=== PATIENT | female | born 1995 | race Caucasian/White ===

== ENCOUNTER 2020-03-26 07:16 | Outpatient (CLI) | payer OTHER, SELFPAY ==
--- NOTE | ~2020-03-26 | MR_ITS ---
EXAMINATION: MR brain/brain stem wo/w con EXAM DATE: 03/26/2020 08:47 INDICATION: Persistent worsening morning headache. TECHNIQUE: Magnetic resonance imaging (MRI) of the brain/brain stem obtained without contrast. Sagit phuong T1, axial diffusion, gradient echo (T2*), T1, T2, FLAIR sequences obtained. Patient was then inj ected with 15 cc intravenous Multihance contrast. Axial and coronal postcontrast T1 weighted sequence s obtained. There is no prior study for comparison. FINDINGS: There are no areas of restricted diffusion to suggest acute infarction. There is no acute hemorrhage seen on the T2*, a hemosiderin sensitive sequence. No intraparenchymal brain mass. The ve ntricles are normal in size. There are no extra-axial collections. Flow voids are seen in the cereb ral arteries on the T2-weighted sequences consistent with their expected patency. The orbits are unr emarkable. Soft tissue is unremarkable. There are no areas of abnormal enhancement on the postcont rast images. IMPRESSION: 1. Normal brain MRI examination. Reviewed, dictated and finalized at location B. SPORT SPECIALIST
[2020-03-26 08:20] LABS: Estimated Glomerular Filt Rate > 60
== END 2020-03-26 07:17 | disposition home or self-care (01) ==
PROVIDERS: PCP Registered Nurse; Visit Provider Registered Nurse
DX: G44.52 New daily persistent headache (NDPH) (principal)
CPT/HCPCS: 70553; A9577

== ENCOUNTER 2022-08-04 14:51 | Emergency (ER) | payer OTHER, SELFPAY ==
[2022-08-04 14:59] VITALS: BP 118/74; PULSE 74; RESP 14; TEMP 36.8; O2SAT 100
--- NOTE | 2022-08-04 15:01 | ED.GENADULT ---
HPI - General Adult General Chief complaint: Back Pain/Injury Stated complaint: lt leg pain Source: patient and RN notes reviewed History of Present Illness HPI narrative: 27-year-old female presents to urgent care with complaints of left buttock pain that radiates down her posterior thigh. Patient reports some numbness and tingling. Patient denies any injury or trauma. Patient denies any incontinence of urine or stool, saddle anesthesia, weakness, fevers, or chills. Patient states she took 2 Tylenol Extra Strength without relief. Some parts of this dictation were generated by voice recognition software and may contain typographical and/or grammatical inaccuracies. Related Data Home Medications Medication Instructions Recorded Confirmed bupropion HCl 150 mg tablet,12 hr 150 mg PO DAILY 02/19/22 08/04/22 sustained-release (Wellbutrin SR) citalopram 20 mg tablet 20 mg PO DAILY 03/27/22 08/04/22 levonorgestrel 21 mcg/24 hours (8 1 device intrauterine ONCE 03/27/22 08/04/22 yrs) 52 mg intrauterine device (Mirena) spironolactone 50 mg tablet 50 mg PO DAILY 08/04/22 08/04/22 Allergies Allergy/AdvReac Type Severity Reaction Status Date / Time No Known Allergies Allergy Verified 08/04/22 15:04 Review of Systems Review of Systems: CONSTITUTIONAL: Denies fever, chills, or sweats. EYES: Denies visual changes, redness, or discharge. ENT: Denies otalgia and sore throat CARDIOVASCULAR: Denies chest pain, palpitations, or edema. RESPIRATORY: Denies cough or dyspnea. GASTROINTESTINAL: Denies abdominal pain, nausea, vomiting, or diarrhea. GENITOURINARY: Denies dysuria or hematuria. SKIN: Denies rash or itching. MUSCULOSKELETAL: left buttock pain NEUROLOGIC: Denies headache, numbness, or weakness. [facility] Past Medical History Medical History (Updated 08/04/22 @ 15:13 by Tamy Medina APRN) Encounter for insertion of mirena IUD insertion 10/2018 Encounter for Nexplanon removal Nexplanon insertion Surgical History Surgical History H/O wisdom tooth extraction Family History Family History Other Breast cancer Diabetes mellitus Social History Social History Smoking status: Never smoker Alcohol intake: current Substance use: current Substance use type: marijuana Living arrangements: with family Occupation/Education: occupation Gender identity (if verbalized by the patient): Female Sexual Orientation (if Verbalized by the Patient): Straight or Heterosexual Comments At the time of my signature, I reviewed and agree with the nursing past medical, surgical, social, and family history. There is no relevant family history pertinent to the patient complaint. Exam Narrative: GENERAL: This is a well-nourished, well-developed patient, in no apparent distress. HEAD: normocephalic, atraumatic. EYES: PERRL. Sclera clear/white. Vision is grossly intact. EARS: External ears normal, auditory canals clear and without drainage, TMs normal without perforation. Hearing grossly intact. NOSE: External nose normal with no obvious nasal discharge, nares without redness, no rhinorrhea. THROAT: Mucous membranes moist, posterior pharynx clear. NECK: Neck supple, non-tender without lymphadenopathy, masses or thyromegaly. CARDIOVASCULAR: Regular rate and rhythm without murmurs, gallops, or rubs. RESPIRATORY: Clear to auscultation. Breath sounds equal bilaterally. No wheezes, rales, or rhonchi. GASTROINTESTINAL: Abdomen soft, non-tender, nondistended. Bowel sounds are active. No hepato-splenomegaly, or palpable masses. No guarding. SKIN: warm, intact with no suspicious lesions or rash, good texture and turgor. NEURO: awake, alert, and oriented to person, place and time. There were no obvious focal neurologic abnormalities. EXTREMITIES: No clubbing, cyanosis, or
== END 2022-08-04 15:19 | disposition home or self-care (01) ==
PROVIDERS: Emergency Provider Nurse Practitioner Family; PCP Registered Nurse
DX: M54.32 Sciatica, left side (principal); F12.90 Cannabis use, unspecified, uncomplicated
CPT/HCPCS: 99213; G0463

== ENCOUNTER → 2023-05-04 08:16 | Outpatient (CLI) | payer OTHER, SELFPAY ==
--- NOTE | ~2023-05-04 | US_ITS ---
US breast LT complete INDICATION: Left breast lump TECHNIQUE: Dedicated left breast ultrasound COMPARISON: No prior studies for comparison. FINDINGS: The left breast is composed of normal heterogeneous echotexture without focal solid or cyst ic mass. IMPRESSION: 1: Normal left breast ultrasound. BI-RADS CATEGORY 1 - NEGATIVE Reviewed, dictated and finalized at location A. RED MACHINE OPERATOR
== END ==
PROVIDERS: PCP Student in an Organized Health Care Education/Training Program; Visit Provider Student in an Organized Health Care Education/Training Program
DX: N63.20 Unspecified lump in the left breast, unspecified quadrant (principal)
CPT/HCPCS: 76641

== ENCOUNTER 2023-09-18 13:57 | Emergency (ER) | payer OTHER, SELFPAY ==
--- NOTE | 2023-09-18 14:48 | PC.NURSE ---
Pt checked in and then immediately left [facility]. Pt was not seen by any staff besides initial registration.
== END 2023-09-18 14:50 | disposition left against medical advice (07) ==
PROVIDERS: PCP Registered Nurse
DX: Z53.21 Procedure and treatment not carried out due to patient leaving prior to being seen by health care provider (principal)
CPT/HCPCS: 99199

== ENCOUNTER 2024-01-07 21:36 | Emergency (ER) | payer OTHER, SELFPAY ==
--- NOTE | ~2024-01-07 | XR_ITS ---
EXAMINATION: XR chest 2V DATE: 01/08/2024 00:58 INDICATION: Leukocytosis. Nausea and vomiting. TECHNIQUE: Frontal and lateral views of the chest were obtained. COMPARISON: CT abdomen pelvis 01/08/24 FINDINGS: There are moderate-sized right and small left pleural effusions. There is mild atelectasis at right lung base. No pneumothorax. The heart size is normal. There is a right subclavian port with tip at superior cavoatrial junction. IMPRESSION: 1. Moderate-sized right and small left pleural effusions. Reviewed, dictated and finalized at location A.
--- NOTE | ~2024-01-07 | XR_ITS ---
XR abdomen/kub 1V DATE: 01/09/2024 14:43 INDICATION: Abdominal pain, constipation TECHNIQUE: 2 portable supine AP views COMPARISON: 01/08/2024 CT abdomen pelvis FINDINGS: There is a groundglass appearance of the abdomen likely due to combination of ascites and f luid distended bowel. No bowel obstruction is evident. No visceromegaly or significant abnormal calcification is noted. IMPRESSION: No evidence of bowel obstruction or unusual amount of fecal material in the colon Ascites Reviewed, dictated and finalized at Location A. Reviewed, dictated and finalized at location J. IMPRESSION: No evidence of bowel obstruction or unusual amount of fecal materia l in the colon Ascites
--- NOTE | ~2024-01-07 | CT_ITS ---
EXAMINATION: CT abdomen pelvis w con DATE: 01/08/2024 00:56 INDICATION: Low abdominal pain. TECHNIQUE: Computed tomography (CT) of the abdomen and pelvis was performed with 100 mL Omnipaque 350 intravenous contrast. Automated exposure control and iterative reconstruction technique were employe d. The dose-length product was 461.38 mGy-cm. COMPARISON: None. FINDINGS: The visualized portions of lung bases demonstrate moderate-sized right and small left pleur al effusions. There is mild atelectasis bilaterally. The heart size is normal. There is a small peric ardial effusion. The liver, gallbladder, spleen, pancreas, adrenal glands, and kidneys are normal. Th ere are no dilated loops of bowel. The appendix is normal. There is a moderate volume of ascites. The ovaries are markedly enlarged with innumerable cysts. The right ovary measures 9.0 cm. Left ovary me asures 10.9 cm. There are chronic bilateral L5 pars defects. There is 3 mm anterolisthesis of L5 on S 1. IMPRESSION: 1. Markedly enlarged ovaries within innumerable cysts, which may be ovarian hyperstimulation syndrome . Metastatic disease is not excluded. 2. Moderate-sized right and small left pleural effusions. 3. Small pericardial effusion. 4. Moderate volume of ascites. Reviewed, dictated and finalized at location A. IMPRESSION: 1. Markedly enlarged ovaries within innumerable cysts, which may be ovarian hyp erstimulation syndrome. Metastatic disease is not excluded. 2. Moderate-sized right and small left pleural effusions. 3. Small pericardial effusion. 4. Moderate volume of ascites.
[2024-01-07 21:56] VITALS: BP 105/76; PULSE 94; RESP 23; O2SAT 100
[2024-01-07 22:01] VITALS: BP 102/76; PULSE 90; PULSE 96; RESP 13; RESP 15; TEMP 36.1; O2SAT 99
--- NOTE | 2024-01-07 22:24 | ECG_ITS ---
Test Date: 2024-01-07 22:44:42 Measurements Intervals [place] Rate: 89 P: 54 IA: 129 QRS: 44 QRSD: 82 T: 28 QT: 356 QTc: 433 Interpretive Statements SINUS RHYTHM NORMAL ELECTROCARDIOGRAM No previous ECG available for comparison Electronically Signed On 01-08-2024 14:58:05 CDT by Randy Pizano M.D.
[2024-01-07 22:28] VITALS: PULSE 91
[2024-01-07] MEDS: SODIUM CHLORIDE 0.9% IV 1,000 ML 999 ML IV CONT ×2 (22:37→23:23)
[2024-01-07] MEDS: ONDANSETRON INJ 4 MG/2 ML VIAL IV PUSH (22:37)
[2024-01-07 22:38] LABS: Basophils Absolute Auto 0.1 K/mm3 (0.0-0.1); Basophils Percent Auto 0.4 % (0.2-1.2); Hematocrit 47.8 % (37.0-47.0); Hemoglobin 17.1 g/dL (12.0-15.0); Immature Granulocyte Absolute 0.15 K/mm3 (0.00-0.031); Immature Granulocyte Percent A 0.7 % (0-0.5); Lymphocytes Absolute Auto 1.46 K/mm3 (0.9-3.2); Lymphocytes Percent Auto 6.5 % (18.3-44.2); Mean Corpuscular HGB Conc 35.8 g/dl (32-36); Mean Corpuscular Hemoglobin 30.6 pg (26-34); Mean Corpuscular Volume 85.5 fl (80-100); Mean Platelet Volume 9.5 fl (7.4-10.4); Monocytes Absolute Auto 0.8 K/mm3 (0.1-0.6); Monocytes Percent Auto 3.6 % (2.6-8.5); Neutrophils Absolute Auto 19.8 K/mm3 (1.3-6.7); Neutrophils Percent Auto 88.8 % (45.5-73.1); Platelet Count Result 292 k/mm3 (150-375); Red Blood Count 5.59 M/mm3 (4.2-5.4); Red Cell Distribution Width 12.2 % (11.5-14.5); White Blood Count 22.3 K/mm3 (4.5-10.0)
[2024-01-07 22:50] LABS: Lactic Acid Reflex 1.1 mmol/L (0.7-2.0)
[2024-01-07 22:51] LABS: Alanine Aminotransferase 26 U/L (6-35); Albumin Level 3.6 g/dL (3.5-5.1); Alkaline Phosphatase 65 U/L (38-126); Anion Gap 9 mmol/L (4-12); Aspartate Amino Transferase 23 U/L (14-36); Bilirubin,Total 0.3 mg/dL (0.2-1.3); Blood Urea Nitrogen 9 mg/dL (7-17); Calcium 8.8 mg/dL (8.4-10.2); Carbon Dioxide 21 mmol/L (22-30); Chloride 102 mmol/L (98-107); Estimated CRCL calculation 104 ml/min; Estimated Glomerular Filt Rate > 60; Glucose 131 mg/dL (65-110); Potassium 4.2 mmol/L (3.4-5.0); Sodium 132 mmol/L (137-145)
[2024-01-07 22:54] LABS: Prothrombin Time 13.2 Seconds (11.1-14.7)
[2024-01-07 22:55] LABS: Partial Thromboplastin Time 27.3 Seconds (22.3-36.8)
[2024-01-07 23:07] VITALS: BP 104/70; PULSE 79; RESP 19; TEMP 37.1; O2SAT 99
[2024-01-07] MEDS: METOCLOPRAMIDE HCL INJ 10 MG/2 ML VIAL IV PUSH (23:23)
[2024-01-07] MEDS: diphenhydrAMINE HCl INJ 50 MG/ML VIAL 25 MG IV PUSH (23:23)
[2024-01-07 23:31] LABS: Procalcitonin 0.1 ng/mL
[2024-01-07] MEDS: MORPHINE SULFATE (*CRX) 2 MG/ML INJ IV PUSH (23:58)
[2024-01-08] VITALS (72 sets, daily range): BP systolic 91–111; BP diastolic 59–73; PULSE 80–113; RESP 15–27; TEMP 36.3–37.2; O2SAT 95–99
[2024-01-08 00:01] LABS: Influenza A QL RT-PCR Negative (Negative); Influenza B QL RT-PCR Negative (Negative); RSV RNA, RT-PCR Negative (Negative); SARS-CoV-2 RNA PCR Negative (Negative)
--- NOTE | 2024-01-08 00:25 | ED.WEAKNESS ---
HPI - Weakness General Chief complaint: Weakness <Mari Lokc APRN - Last Filed: 01/11/24 11:43> Stated complaint: weakness, n/v <Mari Lock APRN - Last Filed: 01/11/24 11:43> Time Seen by Provider: 01/07/24 21:42 <Mari Lock APRN - Last Filed: 01/11/24 11:43> Source: patient <Mari Lock APRN - Last Filed: 01/11/24 11:43> Mode of arrival: ambulatory <Mari Lock APRN - Last Filed: 01/11/24 11:43> Limitations: no limitations <Mari Lock APRN - Last Filed: 01/11/24 11:43> History of Present Illness HPI Narrative: Pt is a 28-year-old female who presents to the ER with complaints of weakness, nausea and vomiting. She reports she was diagnosed with breast cancer about a month ago. Pt reports she has had a port placed and gone through fertility stuff since then. This morning she received a shot to protect my kidneys and anticipates starting her chemotherapy next week. Pt reports she was feeling fine until about 1800 this evening. She endorses lower abdominal pain, along with nausea and generalized weakness at this time. Pt's parents are both present during this visit. <Mari Lock APRN - Last Filed: 01/11/24 11:43> Related Data Home medications: Home Medications Medication Instructions Recorded Confirmed dexamethasone 4 mg tablet 4 mg PO DAILY 01/08/24 01/08/24 letrozole 2.5 mg tablet 2.5 mg PO DAILY 01/08/24 01/08/24 ondansetron HCl 8 mg tablet 8 mg PO PRN PRN Nausea 01/08/24 01/08/24 prochlorperazine maleate 10 mg 10 mg PO DAILY 01/08/24 01/08/24 tablet <Mari Lock APRN - Last Filed: 01/11/24 11:43> Allergies/Adverse reactions: Allergies Allergy/AdvReac Type Severity Reaction Status Date / Time No Known Allergies Allergy Verified 01/08/24 01:07 <Mari Lock APRN - Last Filed: 01/11/24 11:43> Review of Systems Review of Systems: All systems reviewed & are unremarkable except as noted in HPI and below <Mari Lock APRN - Last Filed: 01/11/24 11:43> [facility] Past Medical History Medical History: Medical History Encounter for insertion of mirena IUD insertion 10/2018 Encounter for Nexplanon removal Encounter for removal of intrauterine contraceptive device Nexplanon insertion <Mari Lock APRN - Last Filed: 01/11/24 11:43> Surgical History Surgical History: Surgical History H/O wisdom tooth extraction <Mari Lock APRN - Last Filed: 01/11/24 11:43> Family History Family History: Family History Other Breast cancer Diabetes mellitus <Mari Lock APRN - Last Filed: 01/11/24 11:43> Social History Social History: Social History Smoking status: Never smoker Alcohol intake: current Substance use: current Substance use type: marijuana Lack of Transportation: No Lack of Food: Never True Current Housing: I Have Housing Concerned About Future Housing: No Difficulty Paying Gas/Electric Bills: No Difficulty Paying for Meds: No Currently Unemployed: No Education: Bachelor's Degree Difficulty w/ Childcare or Family Care: No Living arrangements: with family Occupation/Education: occupation Gender identity (if verbalized by the patient): Female Sexual Orientation (if Verbalized by the Patient): Straight or Heterosexual <Mari Lock APRN - Last Filed: 01/11/24 11:43> Exam Narrative: GENERAL: ill-appearing, but well-nourished HEENT: Head normocephalic, atraumatic. Eyes pupils equal round and reactive to light, extraocular movements intact. Nares patent. Oropharynx clear. NECK: Supple, normal range of motion, no JVD. CARDIAC: Regular rate and rhythm without murmurs, rubs or gal
[2024-01-08 01:19] LABS: Add Urine Microscopic? YES; Appearance Urine Cloudy (Clear); Bacteria Urine 3+ /hpf; Bilirubin Urine Negative (Negative); Blood Urine Negative (Negative); Color Urine Yellow (Yellow); Glucose Urine UA Negative (Negative); Ketones Urine 3+ mg/dL (Negative); Leukocyte Esterase Ur 1+ LEU/UL (Negative); Need Manual Microscopic Reviewed; Nitrate Urine Negative (Negative); Protein Urine Trace mg/dL (Negative); Specific Grav Ur 1.023 (1.001-1.035); Squamous Epithelial Cell Urine Many /hpf (Few); Urobilinogen Urine 0.2 mg/dL (<2.0); pH Urine 5.5 (5.0-9.0)
[2024-01-08 01:24] LABS: BEDSIDEPREGUCG Negative
[2024-01-08] MEDS: CEFEPIME 2 GM/NS 50 ML 2 GM/50 ML BAG IVPB ×3 (01:37→18:10)
[2024-01-08] MEDS: VANCOMYCIN 1,250 MG/NS 250 ML 1,250 MG/250 ML BAG 166.67 MG IVPB (02:15)
[2024-01-08] MEDS: ONDANSETRON INJ 4 MG/2 ML VIAL IV PUSH ×2 (02:23→23:46)
[2024-01-08] MEDS: VANCOMYCIN 1,000 MG/NS 250 ML 1,000 MG/250 ML BAG 250 MG IVPB (03:50)
[2024-01-08 04:14] LABS: MRSA (PCR) NOT DETECTED (NOT DETECTE)
[2024-01-08] MEDS: METOCLOPRAMIDE HCL INJ 10 MG/2 ML VIAL IV PUSH (06:18)
[2024-01-08] MEDS: HEPARIN SODIUM 5,000 UNITS/ML VIAL 5000 UNITS SUB-Q (06:18)
--- NOTE | 2024-01-08 07:26 | PC.NURSE ---
Assumed care of pt. Pt resting in bed, A&Ox4, in good spirits. Pt's mother and father at bedside with her. Pt reports she is currently feeling well, denies pain or nausea at this time and is asking if she is able to eat. Pt provided pretzels and juice upon request. Call light within reach. Pt and her parents were updated and informed on transfer process.
[2024-01-08] MEDS: VANCOMYCIN 1,500 MG/NS 500 ML 1,500 MG/500 ML BAG 250 MG IVPB (14:22)
[2024-01-08] MEDS: MORPHINE SULFATE (*CRX) 2 MG/ML INJ IV PUSH (15:01)
--- NOTE | 2024-01-08 15:08 | PC.NURSE ---
Pt was complaining of returning pain to RLQ. RN informed MD Rhodes, pt provided pain medication, denies need for ondansetron at this time. Diet order placed, pt wanting to order dinner. Pt's mother and father remain at bedside. Continuing to await transfer.
--- NOTE | 2024-01-08 15:43 | PC.NURSE ---
pt remains on bed wait list for [facility]
--- NOTE | 2024-01-08 23:27 | PC.NURSE ---
spoke with [facility] transfer center for update- no bed available at this time.
--- NOTE | 2024-01-08 23:32 | ECG_ITS ---
Test Date: 2024-01-08 23:34:30 Measurements Intervals [place] Rate: 87 P: 40 AK: 120 QRS: 46 QRSD: 91 T: 32 QT: 358 QTc: 433 Interpretive Statements SINUS RHYTHM NORMAL ECG Compared to ECG 01/07/2024 22:44:42 No significant changes Electronically Signed On 01-09-2024 09:35:08 CDT by Randy Pizano M.D.
[2024-01-09] VITALS (46 sets, daily range): BP systolic 91–116; BP diastolic 50–78; PULSE 68–103; RESP 14–27; TEMP 36.5–36.7; O2SAT 93–100
[2024-01-09] MEDS: CEFEPIME 2 GM/NS 50 ML 2 GM/50 ML BAG IVPB ×3 (02:22→18:47)
[2024-01-09] MEDS: polyethylene glycoL 3350 17 GM POWD.PACK PO (02:23)
[2024-01-09] MEDS: VANCOMYCIN 1,500 MG/NS 500 ML 1,500 MG/500 ML BAG 250 MG IVPB ×3 (02:28→21:24)
[2024-01-09 06:30] LABS: Estimated CRCL calculation 118 ml/min; Estimated Glomerular Filt Rate > 60
[2024-01-09] MEDS: MORPHINE SULFATE (*CRX) 2 MG/ML INJ IV PUSH ×4 (10:08→21:23)
[2024-01-09] MEDS: ONDANSETRON INJ 4 MG/2 ML VIAL IV PUSH ×4 (10:08→21:23)
[2024-01-09 11:18] LABS: Basophils Absolute Auto 0.1 K/mm3 (0.0-0.1); Basophils Percent Auto 0.4 % (0.2-1.2); Eosinophils Percent Auto 0.3 % (0-4.4); Hematocrit 38.6 % (37.0-47.0); Hemoglobin 13.3 g/dL (12.0-15.0); Immature Granulocyte Absolute 0.06 K/mm3 (0.00-0.031); Immature Granulocyte Percent A 0.4 % (0-0.5); Lymphocytes Absolute Auto 1.95 K/mm3 (0.9-3.2); Lymphocytes Percent Auto 13.9 % (18.3-44.2); Mean Corpuscular HGB Conc 34.5 g/dl (32-36); Mean Corpuscular Hemoglobin 30.3 pg (26-34); Mean Corpuscular Volume 87.9 fl (80-100); Mean Platelet Volume 9.5 fl (7.4-10.4); Monocytes Absolute Auto 0.8 K/mm3 (0.1-0.6); Monocytes Percent Auto 5.9 % (2.6-8.5); Neutrophils Absolute Auto 11.1 K/mm3 (1.3-6.7); Neutrophils Percent Auto 79.1 % (45.5-73.1); Platelet Count Result 195 k/mm3 (150-375); Red Blood Count 4.39 M/mm3 (4.2-5.4); Red Cell Distribution Width 12.6 % (11.5-14.5)
[2024-01-09 11:34] LABS: Alanine Aminotransferase 24 U/L (6-35); Albumin Level 2.7 g/dL (3.5-5.1); Alkaline Phosphatase 48 U/L (38-126); Anion Gap 7 mmol/L (4-12); Aspartate Amino Transferase 23 U/L (14-36); Bilirubin,Total 0.3 mg/dL (0.2-1.3); Blood Urea Nitrogen 8 mg/dL (7-17); Calcium 7.6 mg/dL (8.4-10.2); Carbon Dioxide 19 mmol/L (22-30); Chloride 106 mmol/L (98-107); Estimated CRCL calculation 118 ml/min; Estimated Glomerular Filt Rate > 60; Glucose 90 mg/dL (65-110); Potassium 3.8 mmol/L (3.4-5.0); Sodium 132 mmol/L (137-145)
--- NOTE | 2024-01-09 12:48 | PC.NURSE ---
lunch tray ordered for pt at this time
--- NOTE | 2024-01-09 20:00 | PC.NURSE ---
assumed care of pt from Princess Lepe RN.
[2024-01-10] MEDS: CEFEPIME 2 GM/NS 50 ML 2 GM/50 ML BAG IVPB ×3 (02:03→19:08)
[2024-01-10] MEDS: MORPHINE SULFATE (*CRX) 2 MG/ML INJ IV PUSH ×5 (02:03→22:46)
[2024-01-10] MEDS: ONDANSETRON INJ 4 MG/2 ML VIAL IV PUSH ×4 (02:03→22:17)
[2024-01-10] MEDS: VANCOMYCIN 1,500 MG/NS 500 ML 1,500 MG/500 ML BAG 250 MG IVPB (06:00)
--- NOTE | 2024-01-10 06:05 | PC.NURSE ---
morphine and zofran pulled for 0600 dose and wasted with this rn and juan carlos ferreira charge nurse.
[2024-01-10 07:00] VITALS: BP 95/63; PULSE 92; RESP 16; TEMP 36.7; O2SAT 98
[2024-01-10] MEDS: polyethylene glycoL 3350 17 GM POWD.PACK PO (08:25)
[2024-01-10 10:14] LABS: Estimated CRCL calculation 136 ml/min; Estimated Glomerular Filt Rate > 60
--- NOTE | 2024-01-10 10:15 | PC.NURSE ---
mEma from [facility] transfer center called for pt update. No change in bed availability at this time
--- NOTE | 2024-01-10 11:52 | PC.NURSE ---
Pt ambulated to BR c/o nausea upon ambulating. Assisted back to bed, Zofran not due at this time. Pt states I will just take a nap
[2024-01-10 13:21] LABS: Vancomycin Trough 13.4 ug/mL (10.0-20.0)
[2024-01-10 13:41] VITALS: BP 106/66; PULSE 66; RESP 16; TEMP 36.8; O2SAT 98
[2024-01-10] MEDS: VANCOMYCIN 1,750 MG/NS 500 ML 1,750 MG/500 ML BAG 250 MG IVPB ×2 (14:01→21:58)
--- NOTE | 2024-01-10 14:45 | PC.NURSE ---
Pt states relief from nausea. Ate 100% of lunch tray
--- NOTE | 2024-01-10 16:14 | PC.NURSE ---
Pt ambulated to bathroom with steady gait, denies nausea, linens changed.
--- NOTE | 2024-01-10 18:21 | PC.NURSE ---
Pt offered shower. Port a cath & IV covered with Magdy Gomezap & pt accompanied by Priscila blast furnace helper
[2024-01-10 19:20] VITALS: BP 117/72; PULSE 92; RESP 16; TEMP 36.7; O2SAT 97
[2024-01-10 21:20] VITALS: BP 95/52; PULSE 83; RESP 16; TEMP 36.7; O2SAT 100
[2024-01-10 23:13] VITALS: BP 104/70; PULSE 67; RESP 18; TEMP 36.4; O2SAT 99
[2024-01-11] VITALS (8 sets, daily range): BP systolic 98–114; BP diastolic 60–75; PULSE 61–98; RESP 15–18; TEMP 36.3–36.9; O2SAT 97–100
[2024-01-11] MEDS: CEFEPIME 2 GM/NS 50 ML 2 GM/50 ML BAG IVPB (02:04)
[2024-01-11] MEDS: ONDANSETRON INJ 4 MG/2 ML VIAL IV PUSH ×5 (05:25→21:43)
[2024-01-11] MEDS: MORPHINE SULFATE (*CRX) 2 MG/ML INJ IV PUSH ×5 (05:25→21:43)
[2024-01-11] MEDS: CENTRAL LINE FLUSH 10 ML IV PUSH ×2 (05:25→21:44)
[2024-01-11 05:32] LABS: Estimated CRCL calculation 136 ml/min; Estimated Glomerular Filt Rate > 60
[2024-01-11] MEDS: VANCOMYCIN 1,750 MG/NS 500 ML 1,750 MG/500 ML BAG 250 MG IVPB (06:01)
--- NOTE | 2024-01-11 08:00 | PC.NURSE ---
Assumed care of pt, pt happy this morning, ordered breakfast. no complaints, no other requests at this time.
[2024-01-11] MEDS: HEPARIN SODIUM 5,000 UNITS/ML VIAL 5000 UNITS SUB-Q (08:39)
[2024-01-11] MEDS: polyethylene glycoL 3350 17 GM POWD.PACK PO (08:40)
--- NOTE | 2024-01-11 08:57 | PC.NURSE ---
spoke with omid at [facility]. updated her on pt status. states they are still waiting on a bed
--- NOTE | 2024-01-11 12:14 | PC.NURSE ---
lunch tray ordered
--- NOTE | 2024-01-11 16:00 | PC.NURSE ---
Different options being discussed between pt, RN and Exploring possible dc from ED and outpatient followup with siteman as pt is feeling much better and labs have improved. Pt making phone calls to [facility] to speak with her
--- NOTE | 2024-01-11 17:00 | PC.NURSE ---
This RN to room to check on pt. Pt crying in bed and states she is just very frustrated. She states she spoke with nurse coordinator and they are still wanting her to be transferred to [place] so that she can be evaluated by DIAL MAKER and fertility
--- NOTE | 2024-01-11 19:15 | PC.NURSE ---
Assumed care of pt from [place] [facility] at this time. Pt resting comfortably in bed. Call light within reach.
--- NOTE | 2024-01-12 03:26 | PC.NURSE ---
At 2143 med pass pt verbalized not wanting RN to wake her throughout the night unless she called out. Pt wanted to see how long she could go without getting pain meds and to see if she could transition from morphine to a medication of lesser strength. This RN verbalized understanding and told pt to press her call light at any time throughout the night if she had any needs.
[2024-01-12 05:40] VITALS: BP 108/64; PULSE 73; RESP 16; TEMP 36.7; O2SAT 99
[2024-01-12 05:41] VITALS: O2SAT 97
[2024-01-12] MEDS: CENTRAL LINE FLUSH 10 ML IV PUSH (06:03)
--- NOTE | 2024-01-12 07:26 | PC.NURSE ---
breakfast tray ordered
[2024-01-12] MEDS: polyethylene glycoL 3350 17 GM POWD.PACK PO (09:04)
--- NOTE | 2024-01-12 09:21 | PC.NURSE ---
Spoke with Elsa from [facility]. She will contact admitting doctor to see what other interventions need done or if pt can possibly be discharged home.
[2024-01-12 11:58] VITALS: BP 105/64; PULSE 94; RESP 18; TEMP 36.7; O2SAT 94
--- NOTE | 2024-01-12 11:59 | PC.NURSE ---
Assumed care of pt. Pt resting comfortably in bed, rates her pain as 2/10 - requesting to switch from morphine to tylenol for pain control and awaiting update from to see if pt can be d/c from facility. Lunch tray ordered for pt at this time. Pt denies other complaints/requests. Family at bedside.
[2024-01-12] MEDS: ACETAMINOPHEN 500 MG TABLET 1000 MG PO (12:59)
[2024-01-12 14:31] VITALS: BP 136/84; PULSE 80; RESP 16; O2SAT 98
== END 2024-01-12 14:46 | disposition home or self-care (01) ==
PROVIDERS: Emergency Medicine; Registered Nurse; Emergency Provider Student in an Organized Health Care Education/Training Program; PCP Registered Nurse
DX: A41.9 Sepsis, unspecified organism (principal); C50.919 Malignant neoplasm of unspecified site of unspecified female breast; N98.1 Hyperstimulation of ovaries; E86.0 Dehydration; J90 Pleural effusion, not elsewhere classified; D72.829 Elevated white blood cell count, unspecified; D58.2 Other hemoglobinopathies; R18.8 Other ascites; Z20.822 Contact with and (suspected) exposure to COVID-19
CPT/HCPCS: 36415; 71046; 74018; 74177; 80053; 80202; 81001; 81025; 82565; 83605; 84145; 85025; 85610; 85730; 86850; 86900; 86901; 87040; 87086; 87088; 87637; 87641; 93005; 96361; 96365; 96366; 96367; 96372; 96374; 96375; 96376; 99284; A9270; J0692; J1200; J1642; J1644; J2270; J2405; J2765; J3370; J7030; Q9967

== ENCOUNTER 2024-09-16 22:05 | Emergency (ER) | payer OTHER, SELFPAY ==
--- NOTE | ~2024-09-16 | CT_ITS ---
CTA chest abdomen pelvis Ordering provider: Everton Greenberg MD History: . pod 3 breast bean dumper sx, tachycardia, dizzy, diar . Comparison: None. Technique: CT angiogram chest, abdomen and pelvis was performed following timed intravenous injection of contrast. Thin slice axial images and reformatted coronal images were obtained. Three dimensional reformatted images of the chest were also obtained using a Vit[employer] workstation. Radiation reduction t echnique utilized.The dose-length product was 1052.28 mGy-cm. 100 mL Omnipaque 350 was given IV. FINDINGS: CHEST: Bilateral breast implants with minimal fluid around both implants. Air is also seen in the subcutaneo us tissues on the left side breast. --THORACIC AORTA: normal. No aneurysm, dissection or mediastinal hematoma. --GREAT VESSELS: Normal as visualized. --PULMONARY ARTERIES: No pulmonary embolus. --VISUALIZED THORACIC INLET: Normal. --MEDIASTINUM: Coronary arteries: Normal.. Heart/other: The heart is not enlarged. Lymph nodes: No mediastinal or hilar adenopathy. --LUNGS: No pulmonary nodules or masses. No infiltrates or effusions. No pneumothorax. --MUSCULOSKELETAL: Superficial soft tissues: The superficial soft tissues are normal. Bones: Normal spine. ABDOMEN/PELVIS: --MUSCULOSKELETAL: Bones: Spondylolysis at the level of L5-S1. Otherwise, normal. Superficial soft tissues: The superficial soft tissues are normal. --UPPER ABDOMINAL ORGANS: Liver: Normal. Gallbladder: Normal. Spleen: Normal. Stomach/duodenum: Normal. Hyperdense material seen in the stomach. Pancreas: Normal. Adrenals: Normal. Kidneys: Normal. --PELVIC ORGANS: The bladder is normal. No bladder stones. --BOWEL AND MESENTERY: Colon: No evidence of diverticulitis.. Hyperdense material seen in the large and all bowel in additio n to the stomach may be medication. Evaluate clinically. The appendix is not demonstrated. Small Bowel: Normal. No obstruction. Peritoneum/mesentery: No free air or free fluid. No mesenteric lymphadenopathy. Small mesenteric lymp h nodes. --RETROPERITONEUM: No retroperitoneal lymphadenopathy. --ARTERIES: ABDOMINAL AORTA: Normal. No aneurysm or dissection. RENAL ARTERIES: Normal. CELIAC AXIS: Normal. SMA: Normal. AYSE: Normal. ILIAC AND VISUALIZED FEMORAL ARTERIES: Normal. MESENTERIC ARTERIES: Normal. IMPRESSION: CHEST: 1. Fluid seen around the breast implants bilaterally more on the left side with air seen in the subc utaneous tissues on the left side. 2. No evidence of aneurysm or dissection. No vascular injury noted. 3. No acute cardiopulmonary pathology ABDOMEN/PELVIS: 1. No acute abdominal process. 2. No aneurysm or dissection seen. No vascular injury noted. Reviewed, dictated and finalized at location A. IMPRESSION: CHEST: 1. Fluid seen around the breast implants bilaterally more on the left side wit h air seen in the subcutaneous tissues on the left side. 2. No evidence of aneurysm or dissection. No vascular injury noted. 3. No acute cardiopulmonary pathology ABDOMEN/PELVIS: 1. No acute abdominal process. 2. No aneurysm or dissection seen. No vascular injury noted.
[2024-09-16 22:08] VITALS: BP 98/70; PULSE 112; RESP 15; TEMP 37.1; O2SAT 100
--- OUTSIDE RECORDS SUMMARY | 2024-09-16 22:08 | XMS_ITS | Encounter Summary ---
Author Organization [facility] Address [address] [place] [address] Phone Care Team Providers Care Coach Professional Athletes Name Role Phone Torri Wiseman NP Primary Care Provider [phone] Alexa Ervin MD Unavailable [phone] Encounter Details Date Type Department Care Team (Latest Contact Info) Description 12/07/2023 Orders Only [facility] Scanning, Provider Social History Tobacco Use Types Packs/Day Years Used Date Smoking Tobacco: Never PHQ-2 Answer Date Recorded PHQ-2 Total Score (If total score is 3 or more points, staff should administer the PHQ-9) 0 11/25/2023 Personal Safety Answer Date Recorded Getting School Help Needed Not on file 05/06 Comments No Sex and Gender Information Value Date Recorded Sex Assigned at Not on file Legal Sex Female 8:57 AM GUIDE DOG TRAINER Gender Identity Female 07/25/2021 2:27 PM GUIDE DOG TRAINER Sexual Orientation Straight 07/25/2021 2: 27 PM GUIDE DOG TRAINER documented as of this encounter Plan of Treatment Not on file documented as of this encounter Procedures Procedure Name Priority Date/Time Associated Diagnosis Comments SCAN - PATHOLOGY 12/07/2023 documented in this encounter Results * SCAN - PATHOLOGY (12/07/2023) us Provider Scanning Final Result documented in this encounter Visit Diagnoses Not on filedocumented in this encounter Additional Health Concerns Infection Onset Date Last Indicated Resolved Time COVID: Suspected 03/21/2024 03/21/2024 03/21/2024 1:35 PM CDT Rhino/Enterovirus 03/21/2024 03/21/2024 03/28/2024 3:05 AM GUIDE DOG TRAINER documented as of this encounter Care Teams Coach Professional Athletes Relationship Specialty Start Date End Date Torri Wiseman NP [address] [place] [address] [address] PCP - General Obstetrics and Gynecology 12/07/23 Alexa Ervin MD [address] [place] [address] Medical Oncologist/Forming Operator Medical Oncology 12/15/23 documented as of this encounter
--- OUTSIDE RECORDS SUMMARY | 2024-09-16 22:08 | XMS_ITS | Referral Summary ---
Author Organization [facility] Address [address] [place] [address] Care Team Providers Care Documentation Nurse Name Role Phone Torri Wiseman NP Primary Care Provider Alexa Ervin MD Unavailable [phone] Encounters Date Type Department Care Team Description 09/15/2024 Orders Only [facility] Oncology [address] [facility] Floor 8 [place] [address] Jillian Joseph RN 09/15/2024 12:00 PM CDT Infusion [facility] Infusion [address] [facility] Floor 5 [place] [address] Malignant neoplasm of upper-inner quadrant of left breast in female, estrogen receptor positive (HCC) (Primary Dx) 09/13/2024 10:00 AM CDT - 09/13/2024 12:40 PM CDT Surgery [facility] Operating Room 2 [place] [address] Arabella Go MD EXCHANGE IMPLANT BREAST - BILATERAL 09/13/2024 12:01 PM CDT Anesthesia Event [facility] Operating Room 2 [place] [address] Patricia Duron MD McMillan, Brennan Michael, MD 09/13/2024 8:43 AM CDT - 09/13/2024 3:31 PM CDT Hospital Encounter [facility] Operating Room 2 [place] [address] Arabella Go MD History of breast reconstruction [Z98.890] (Primary Dx) Discharge Disposition: Discharge to home or self care 09/07/2024 1:00 PM CDT Office Visit [facility] Surgery [facility] [address] [place] [address] Arabella Go MD Malignant neoplasm of upper-inner quadrant of left breast in female, estrogen receptor positive (HCC) (Primary Dx) 09/06/2024 Telephone [facility] Advanced Medicine Radiation Oncology [address] [place] [address] Nay Newton RN 09/05/2024 10:30 AM CDT Consult [facility] Advanced Medicine Radiation Oncology Critical access hospital1 [place] [address] Shabnam Romo MD PhD Malignant neoplasm of upper-inner quadrant of left breast in female, estrogen receptor positive (HCC) 09/01/2024 1:30 PM CDT Office Visit [facility] Surgery [address] [facility] [address] [place] [address] S/P breast reconstruction (Primary Dx) 08/24/2024 11:30 AM CDT Office Visit [facility] Surgery [address] [facility] [address] [place] [address] S/P breast reconstruction (Primary Dx) 08/19/2024 9:30 AM CDT Office Visit [facility] Cardiology [address] [facility] [address] [place] [address] Chidi Rowan MD Encounter for monitoring cardiotoxic drug therapy (Primary Dx); Malignant neoplasm of upper-inner quadrant of left breast in female, estrogen receptor positive (HCC); High risk medication use 08/18/2024 12:15 PM CDT Clinical Support [facility] - Infusion [address] [facility] Floor 5 [place] [address] Malignant neoplasm of upper-inner quadrant of left breast in female, estrogen receptor positive (HCC) 08/18/2024 12:00 PM CDT Infusion [facility] - Infusion [address] [facility] Floor 5 [place] [address] Malignant neoplasm of upper-inner quadrant of left breast in female, estrogen receptor positive (HCC) (Primary Dx) 08/17/2024 12:45 PM CDT Office Visit [facility] Surgery [address] [facility] [address] [place] [address] Arabella Go MD S/P breast reconstruction (Primary Dx); Malignant neoplasm of upper-inner quadrant of left breast in female, estrogen receptor positive (HCC) 08/16/2024 Telephone [facility] Oncology [address] [place] [address] 8 [place] [address] Alexa Ervin MD 08/15/2024 9:35 AM CDT Clinical Support [facility] Surgery [address] [place] [address] 8 [place] [address] Malignant neoplasm of upper-inner quadrant of left breast in female, estrogen receptor positive (HCC) (Primary Dx) 08/15/2024 Telephone [facility] Surgery [address] [place] [address] 8 [place] [address] Rachana Mendoza RN 08/15/2024 12:30 PM CDT Clinical Support [facility] Bone Health [address] [place] [address] Medical Office Building 2 [address] [place] [address] Post-menopausal (Primary Dx); Malignant neoplasm of upper-inner quadrant of left breast in female, estrogen receptor positive (HCC); residential (current) use of aromatase inhibitors; Screening for osteoporosis; Androgen deprivation therapy; Osteopenia of lumbar spine 08/12/2024 Telephone [facility] Oncology [address] [place] [address] 8 [place] [address] Jermaine Cordoba MA 08/11/2024 3:20 PM CDT Office Visit [facility] Oncology [address] [place] [address] 8 [place] [address] Alexa Ervin MD residential (current) use of aromatase inhibitors (Primary Dx); Malignant neoplasm of upper-inner quadrant of left breast in female, estrogen receptor positive (HCC) 08/09/2024 10:45 AM CDT Office Visit [facility] Surgery [facility] 8 [place] [address] Davida Devlin MD Malignant neoplasm of upper-inner quadrant of left breast in female, estrogen receptor positive (HCC) (Primary Dx) 08/02/2024 Telephone [facility] Medicine Radiation Oncology Critical access hospital1 [facility] [place] [address] Shabnam Romo MD PhD 08/01/2024 Telephone [facility] Surgery [address] [place] [address] 8 [place] [address] Rachana Mendoza RN 08/01/2024 Orders Only [facility] Surgery [address] [place] [address] 8 [place] [address] Davida Devlin MD Malignant neoplasm of upper-inner quadrant of left breast in female, estrogen receptor positive (HCC) (Primary Dx) 08/01/2024 Results Follow-Up [facility] Surgery [address] [place] [address] 8 [place] [address] Davida Devlin MD 08/01/2024 1:30 PM CDT Office Visit [facility] Surgery [facility] [address] [place] [address] Malignant neoplasm of upper-inner quadrant of left breast in female, estrogen receptor positive (HCC) 07/29/2024 Telephone [facility] Surgery [address] [place] [address] [address] [place] [address] Arabella Go MD 07/26/2024 Orders Only [facility] Oncology [address] [place] [address] 8 [place] [address] Alexa Ervin MD 07/25/2024 7:57 AM MICROECONOMICS PROFESSOR - 07/25/2024 11:59 PM MICROECONOMICS PROFESSOR Hospital Encounter [facility] Imaging [address] [place] [address] Malignant neoplasm of upper-inner quadrant of left breast in female, estrogen receptor positive (HCC) Discharge Disposition: Discharge to home or self care 07/25/2024 6:32 AM MICROECONOMICS PROFESSOR - 07/25/2024 11:59 PM MICROECONOMICS PROFESSOR Hospital Encounter [facility] Imaging [address] [address] [place], [place] [address] Malignant neoplasm of upper-inner quadrant of left breast in female, estrogen receptor positive (HCC) Discharge Disposition: Discharge to home or self care 07/25/2024 9:15 AM MICROECONOMICS PROFESSOR - 07/25/2024 12:15 PM MICROECONOMICS PROFESSOR Surgery [facility] Operating Room [address] [place], [place] [address] Davida Devlin MD BILATERAL MASTECTOMY SIMPLE - skin sparing 07/25/2024 9:02 AM MICROECONOMICS PROFESSOR Anesthesia Event [facility] Operating Room [address] [place] [address] Carmelo Fan MD Heuvelman, Katherine Marie, NP 07/25/2024 6:35 AM MICROECONOMICS PROFESSOR - 07/25/2024 2:41 PM MICROECONOMICS PROFESSOR Hospital Encounter [facility] Operating Room [address] [place] [address] Davida Devlin MD Malignant neoplasm of left female breast, unspecified estrogen receptor status, unspecified site of breast (HCC) Discharge Disposition: Discharge to home or self care 07/21/2024 12:30 PM MICROECONOMICS PROFESSOR Infusion [facility] - Infusion [address] [facility] Floor 5 [place] [address] Malignant neoplasm of upper-inner quadrant of left breast in female, estrogen receptor positive (HCC) (Primary Dx) 07/18/2024 8:10 AM MICROECONOMICS PROFESSOR - 07/18/2024 11:59 PM MICROECONOMICS PROFESSOR Hospital Encounter [facility] - Breast Imaging [address] [facility] Floor 8 [place] [address] Malignant neoplasm of upper-inner quadrant of left breast in female, estrogen receptor positive (HCC) Discharge Disposition: Discharge to home or self care 07/18/2024 7:41 AM MICROECONOMICS PROFESSOR - 07/18/2024 11:59 PM MICROECONOMICS PROFESSOR Hospital Encounter [facility] - Breast Imaging [facility] Floor 8 [place] [address] Malignant neoplasm of upper-inner quadrant of left breast in female, estrogen receptor positive (HCC) Discharge Disposition: Discharge to home or self care 07/12/2024 Telephone [facility] Oncology [address] [place] [address] Floor 8 [place] [address] Alexa Ervin MD 07/08/2024 Orders Only [facility] Surgery [address] [place] [address] Floor 8 [place] [address] Davida Devlin MD Malignant neoplasm of upper-inner quadrant of left breast in female, estrogen receptor positive (HCC) (Primary Dx) 07/05/2024 Telephone [facility] Cardiology [address] [place] [address] Medicine 8th [place] [address] [place] [address] Keara Benson 07/05/2024 Telephone [facility] [address] [facility] [address] [place] [address] Elsa Bishop Scheduling Appointments 06/28/2024 11:30 AM MICROECONOMICS PROFESSOR - 06/28/2024 11:59 PM MICROECONOMICS PROFESSOR Hospital Encounter [facility] - Breast Imaging [address] [place] [address] Floor 8 [place] [address] Malignant neoplasm of upper-inner quadrant of left breast in female, estrogen receptor positive (HCC) Discharge Disposition: Discharge to home or self care 06/28/2024 11:00 AM MICROECONOMICS PROFESSOR Office Visit [facility] Surgery [address] [place] [address] Floor 8 [place] [address] Davida Devlin MD Malignant neoplasm of upper-inner quadrant of left breast in female, estrogen receptor positive (HCC) (Primary Dx) 06/23/2024 12:00 PM MICROECONOMICS PROFESSOR Infusion [facility] - Infusion [address] [place] [address] Floor 5 [place] [address] Malignant neoplasm of upper-inner quadrant of left breast in female, estrogen receptor positive (HCC) (Primary Dx) from Last 3 Months Allergies No known active allergies Medications escitalopram (LEXAPRO) 10 mg tabletIndication s:Anxiety with Depression Take 1 tablet (10 mg total) by mouth every morning 023 Active acetaminophen (TYLENOL) 500 mg tabletIndication s:Pain Take 2 tablets (1,000 mg total) by mouth every 6 (six) hours as needed for pain Active prochlorperazine (Compazine) 10 mg tabletIndication s:Malignant neoplasm of upper-inner quadrant of left breast in female, estrogen receptor positive (HCC),Persons encountering health services in other specified circumstances Take 1 tablet (10 mg total) by mouth every 6 (six) hours as needed for nausea or vomiting Use first for nausea 60 tablet 3 024 Active buPROPion XL (WELLBUTRIN XL) 300 mg 24 hr tabletIndication s:Anxiety with Depression Take 1 tablet (300 mg total) by mouth every morning Active letrozole (FEMARA) 2.5 mg tablet Take 1 tablet (2.5 mg total) by mouth daily Active celecoxib (CeleBREX) 200 mg capsuleIndicatio ns:Postoperative Acute Pain Take 1 capsule the evening before surgery, then 1 capsule two times daily for 7 days. 14 capsule 025 Active cyclobenzaprine (FLEXERIL) 10 mg tabletIndication s:Post Surgical Pain Take one tablet up to 3 times per day as needed for muscle spasms. 30 tablet 025 Active docusate sodium (COLACE) 100 mg capsuleIndicatio ns:constipation Take 1 capsule (100 mg total) by mouth 3 (three) times a day Start 2 days preop and continue 3 days post op then continue as needed 30 capsule 025 Active ondansetron ODT (ZOFRAN-ODT) 4 mg disintegrating tabletIndication s:S/P breast reconstruction Dissolve one tablet under the tongue at bedtime the evening before surgery. 1 tablet 025 Active pregabalin (LYRICA) 75 mg capsuleIndicatio ns:S/P breast reconstruction Take 1 capsule (75 mg total) by mouth 2 (two) times a day for 7 days Beginning with one tablet at bedtime the evening before surgery. 14 capsule 025 Active HYDROcodone-acet aminophen (NORCO) 5-325 mg per tabletIndication s:Pain Take 1 tablet by mouth every 6 (six) hours as needed for pain 20 tablet Active ondansetron (ZOFRAN) 8 mg tabletIndication s:Malignant neoplasm of upper-inner quadrant of left breast in female, estrogen receptor positive (HCC),Persons encountering health services in other specified circumstances Take 1 tablet (8 mg total) by mouth every 8 (eight) hours as needed for nausea or vomiting Use if prochlorperazine does not stop nausea 24 tablet 3 024 09/09 Discontinued( Therapy completed) OLANZapine (ZyPREXA) 2.5 mg tablet Take 1 tablet (2.5 mg total) by mouth nightly 30 tablet 1 024 09/05 Discontinued cyclobenzaprine (FLEXERIL) 10 mg tabletIndication s:Post Surgical Pain Take one tablet up to 3 times per day as needed for muscle spasms. 30 tablet 025 09/08 Discontinued traMADoL (ULTRAM) 50 mg tabletIndication s:S/P breast reconstruction Take 1 tablet (50 mg total) by mouth every 6 (six) hours as needed for pain 15 tablet 025 09/05 Discontinued pregabalin (LYRICA) 75 mg capsuleIndicatio ns:Malignant neoplasm of upper-inner quadrant of left breast in female, estrogen receptor positive (HCC) Take 1 capsule (75 mg total) by mouth 2 (two) times a day for 7 days 14 capsule 025 09/05 Discontinued letrozole (FEMARA) 2.5 mg tablet Take 1 tablet (2.5 mg total) by mouth daily 30 tablet 11 025 09/05 Discontinued Hospital, Clinic, or Other Facility Administered Medication Ordered Dose Route Frequency Start Date End Date Status sodium chloride 0.9% solution 400 mLIndications:S/P breast reconstruction 400 mL IV Once 08/17/2024 08/18/2024 Ended sodium chloride 0.9% solution 300 mLIndications:S/P breast reconstruction 300 mL cath Once 08/24/2024 08/25/2024 Ended Active Problems Problem Noted Date Diagnosed Date History of breast reconstruction 08/11/2024 Malignant neoplasm of left female breast Decreased cardiac ejection fraction 12/30/2023 Encounter for monitoring cardiotoxic drug therap y 12/30/2023 High risk medication use 12/30/2023 Persons encountering health services in other specified circumstances 12/18/2023 Malignant neoplasm of left b reast in female, estrogen receptor positive 12/15/2023 Malignant neoplasm of upper- inner quadrant of left breast in female, estrogen receptor positive 12/14/2023 Cancer Staging:Clinical stage from 12/07/2023:Stage IIB(cT2, cN1, cM0, G3, ER+, WV+, HER2-) - Signed by Rubens Prescott MD on 09/05/2024 Pathologic stage from 07/25/2024: ypT2, pN1a(sn), cM0, G2, ER+, WV+, HER2- - Unsigned Acne 11/16/2013 Immunizations Immunization Administration Dates Next Due HPV9 05/15/2016,11/13/2015 Influenza, Quadrivalent, Spl it, Preservative Free, Intramuscular 02/03/2020,02/03/2018 Influenza, Unspecified 05/03/2021,07/06/2017,04/2018 Meningococcal B, Recombinant (Trumenba) 05/15/20 16,11/13/2015 Tdap 02/03/2020 Social History Tobacco Use Types Packs/Day Years Used Date Smoking Tobacco: Never Passive Smoke Exposure: Never Smokeless Tobacco: Never Tobacco Cessation:Counseling Given: Not Answered AUDIT-C Answer Date Recorded Q1: How often do you have a drink containing alc ohol? Monthly or less 09/13/2024 Q2: How many drinks containi ng alcohol do you have on a typical day when you are drinking? 1 or 2 09/13/2024 Q3: How often do you have si x or more drinks on one occasion? Never 09/13/2024 PHQ-2 Answer Date Recorded PHQ-2 Total Score (If total score is 3 or more points, staff should administer the PHQ-9) 0 11/25/2023 Personal Safety Answer Date Recorded Have you ever been in or are you currently in a harmful physical or emotional relationship or is someone making you feel afraid or unsafe? Denies 09/13/2024 Comments No Sex and Gender Information Value Date Recorded Sex Assigned at Not on file Legal Sex Female 8:57 AM MICROECONOMICS PROFESSOR Gender Identity Female 07/25/2021 2:27 PM MICROECONOMICS PROFESSOR Sexual Orientation Straight 07/25/2021 2: 27 PM MICROECONOMICS PROFESSOR Last Filed Vital Signs Vital Sign Reading Time Taken Comments Blood Pressure 119/76 09/15/2024 12:45 PM CDT Pulse 86 09/15/2024 12:45 PM CDT Temperature 36.3 C (97.3 F) 09/15/2024 12:45 PM CDT Respiratory Rate 18 09/15/2024 12:45 PM CDT Oxygen Saturation 95% 09/15/2024 12:45 PM CDT Inhaled Oxygen Concentration - - Weight 97 kg (213 lb 13.5 oz) 09/15/2024 12:45 P M CDT Height 167.6 cm (5' 6 ) 09/13/2024 9:45 AM CDT Body Mass Index 34.52 09/13/2024 9:45 AM CDT Plan of Treatment Not on file Medical Devices Implanted Type Area Trim Machine Adjuster Device Identifier Shelf Expiration Date Model / Serial / Lot [employer] Implant Mammary Smooth Mod High Profile Boost 635c[place] [id number] - [id number] - [id number] Implanted:Qty: 1 on 09/13/2024 by Arabella Go MD at [facility] Breast Left: Breast [employer] [id number] 03/06/2029 [id number] / [id number] / [id number] [employer] Implant Mammary Smooth Mod High Profile Boost 635cc [id number] - [id number] - [id number] Implanted:Qty: 1 on 09/13/2024 by Arabella Go MD at [facility] Breast Right: Breast [employer] [id number] 04/13/2029 [id number] / [id number] / [employer] Marker Biospy Site Top Hat Shape Senomark Meodl-Lwqapo-9 s - [id number] Implanted:Qty: 1 on 12/07/2023 by Vladimir Moulton MD at [facility] Clip Left: Breast [employer] [id number] 04/14/2024 SMARK-DWAYNE ERO-2S / / [id number] [employer] Marker Tissue Deployment Device [id number] Sol Mar REI Vision [id number] - [id number] Implanted:Qty: 1 on 12/07/2023 by Vladimir Moulton MD at [facility] Clip Axilla [employer] [id number] 04/05/2028 [id number] / / [id number] [employer] Eviva 13cm Identifier Biopsy Site Kkirl-Gcnxa-13 - [id number] Implanted:Qty: 1 on 12/07/2023 by Vladimir Moulton MD at [facility] [employer] [id number] 07/27/2024 [facility] VA-13 / / [id number] [employer] Port Infus Power Isp Mri 1lum Powerport Clearvue Titanium 8fr [id number] - [id number] Implanted:Qty: 1 on 12/24/2023 at [facility] Right: Subclavian [employer] 02/21/2025 [id number] / / [id number] [employer] Marker Tissue Needle Delivery Spiral Capped Seed Radiopaque Assisted Stainless Steel Low Nickel Sentimag [id number] - [id number] Implanted:Qty: 1 on 07/18/2024 by Chey Wagner MD at [facility] Left: Axilla [employer] [id number] 12/22/2025 [id number] / / [id number] [employer] Graft Tissue Dermis Accelular Cortiva 0.8 1.2mm [id number] Sterile [id number] - [id number] Implanted:Qty: 1 on 07/25/2024 at [facility] Left: Breast [employer] 05/24/2027 [id number] / [id number] / [id number] [employer] Graft Tissue Dermis Accelular Cortiva 0.8 1.2mm [id number] Sterile [id number] - [id number] Implanted:Qty: 1 on 07/25/2024 at [facility] Right: Breast [employer] 05/24/2027 [id number] / [id number] / [id number] Explanted Type Area Trim Machine Adjuster Device Identifier Shelf Expiration Date Model / Serial / Lot [employer] Boost Resterilizable Gel Sizer Explanted:Qty: 1 on 09/13/2024 by Arabella Go MD at [facility] Breast Bilateral: Breast Other 05/12/2029 [id number] / [id number] Description:13.8CM/5.5CM [employer] Sizer Breast Mgel Smth Round Mod Hi Profile Boost 635cc Rpsb Dedthc005l - [id number] - [id number] Explanted:Qty: 1 on 09/13/2024 by Arabella Go MD at [facility] Bilateral: Breast [employer] 05/04/2029 [id number] / [id number] Description:14.2CM/5.7CM [employer] Implant Mammary Natrelle Te Smooth 564t-Bw-84-T With Fourte 819x-Zo-98-T - [id number] Implanted:Qty: 1 on 07/25/2024 at [facility] Explanted:Qty: 1 on 09/13/2024 by Arabella Go MD at [facility] Right: Breast [employer] 06/20/2028 133S-MX-1 4-T / [id number] / [employer] Implant Mammary Natrelle Te Smooth 329u-Qy-71-T With Fourte 343a-Fv-26-T - [id number] Implanted:Qty: 1 on 07/25/2024 at [facility] Explanted:Qty: 1 on 09/13/2024 by Arabella Go MD at [facility] Left: Breast [employer] 06/06/2028 133S-MX-1 4-T / [id number] / Procedures Procedure Name Priority Date/Time Associated Diagnosis Comments EXCHANGE IMPLANT BREAST 09/14/19 11:41 AM CDT History of breast reconstruction Case Notes NEEDS: IMPLANTS4/15 Yesenia ordered implants - pr4/18 Implants are here - pr COTININE, URINE STAT 09/13/2024 9:08 AM CDT POCT HCG, URINE Routine 09/13/2024 8:30 AM CDT DEXA AXIAL SKELETON BONE DENSITY 1 OR MORE SITES Schedule Routine, Read Routine (OP Routine) 08/15/2024 12:52 PM CDT Malignant neoplasm of upper-inner quadrant of left breast in female, estrogen receptor positive (HCC) residential (current) use of aromatase inhibitors RADIOLOGIC EXAMINATION OF SURGICAL SPECIMEN Schedule Routine, Read Routine (OP Routine) 07/25/2024 10:19 AM MICROECONOMICS PROFESSOR Malignant neoplasm of upper-inner quadrant of left breast in female, estrogen receptor positive (HCC) SURGICAL PATHOLOGY Routine 07/25/2024 9:44 AM MICROECONOMICS PROFESSOR Malignant neoplasm of left female breast, unspecified estrogen receptor status, unspecified site of breast (HCC) WV AN PROCEDURE PLACEHOLDER Routine 07/25/2024 9:37 AM MICROECONOMICS PROFESSOR WV AN ELECTIVE ENDOTRACHEAL AIRWAY Routine 07/25/2024 9:37 AM MICROECONOMICS PROFESSOR WV AN PROCEDURE PLACEHOLDER Routine 07/25/2024 9:37 AM MICROECONOMICS PROFESSOR WV AN ELECTIVE SUPRAGLOTTIC AIRWAY Routine 07/25/2024 9:37 AM MICROECONOMICS PROFESSOR INSERTION TISSUE [employer] SAL[employer]END[employer] TEAM MEMBER - BREAST 07/25/2024 9:01 AM MICROECONOMICS PROFESSOR Malignant neoplasm of left female breast, unspecified estrogen receptor status, unspecified site of breast (HCC) Special Needs navigator, blue dye, sentimag, magseed instruments REMOVAL MAG SEED 07/25/2024 9:01 AM MICROECONOMICS PROFESSOR Malignant neoplasm of left female breast, unspecified estrogen receptor status, unspecified site of breast (HCC) Special Needs navigator, blue dye, sentimag, magseed instruments BIOPSY SENTINEL LYMPH NODE WITH LYMPHOSCINTIGRAPHY 07/25/2024 9:01 AM MICROECONOMICS PROFESSOR Malignant neoplasm of left female breast, unspecified estrogen receptor status, unspecified site of breast (HCC) Special Needs navigator, blue dye, sentimag, magseed instruments MASTECTOMY SIMPLE 07/25/2024 9:01 AM MICROECONOMICS PROFESSOR Malignant neoplasm of left female breast, unspecified estrogen receptor status, unspecified site of breast (HCC) Special Needs navigator, blue dye, sentimag, magseed instruments POCT HCG, URINE Routine 07/25/2024 8:18 AM MICROECONOMICS PROFESSOR POCT COTININE Routine 07/25/2024 8:17 AM MICROECONOMICS PROFESSOR NM LYMPHOSCINTIGRAPHY (BREAST) LEFT Schedule Routine, Read Routine (OP Routine) 07/25/2024 7:57 AM MICROECONOMICS PROFESSOR Malignant neoplasm of upper-inner quadrant of left breast in female, estrogen receptor positive (HCC) YANN POST CLIP PLACEMENT LEFT Schedule Routine, Read Routine (OP Routine) 07/18/2024 9:09 AM MICROECONOMICS PROFESSOR Malignant neoplasm of upper-inner quadrant of left breast in female, estrogen receptor positive (HCC) US GUIDED AXILLARY MAGSEED PLACEMENT LEFT Schedule Routine, Read Routine (OP Routine) 07/18/2024 9:01 AM MICROECONOMICS PROFESSOR Malignant neoplasm of upper-inner quadrant of left breast in female, estrogen receptor positive (HCC) US AXILLARY LEFT Schedule Routine, Read Routine (OP Routine) 06/28/2024 12:23 PM MICROECONOMICS PROFESSOR Malignant neoplasm of upper-inner quadrant of left breast in female, estrogen receptor positive (HCC) from Last 3 Months Results * Cotinine, urine (09/13/2024 9:08 AM CDT) Cotinine, ur Negative Negative Urine 09/13/2024 9:08 AM CDT 09/13/2024 9:12 AM CDT us Arabella Go MD LAB URINE ORDERABLES Final Result [facility] [address] [facility] [place] [address] * POCT hCG, urine (09/13/2024 8:30 AM CDT) HCG, ur, POC Negative Negative Lot Number [id number] QC Backgroud Clear Acceptable QC Control Line Acceptable Urine 09/13/2024 8:30 AM CDT us Arabella Go MD POINT OF CARE TEST ORDERABL ES Final Result * Dexa Axial Skeleton Bone Density 1 or 2 Site (08/15/2024 12:52 PM CDT) Anatomical Region Laterality Modality Body N/A Radiographic Lilo ging Narrative 08/16/2024 12:29 PM CDT Patient Name: Cecy Joyce Date of : 1995 Date of scan: 08/15/2024 Bone mineral density was performed on a [employer] Discovery Densitometer. Based on machine cross-calibration and precision studies the least significant changes of this densitometer is 0.024 g/cm2 at the spine, 0.020 g/cm2 at the total proximal femur, and 0.014g/cm2 at the forearm. HISTORY: This is a 29 y.o. premenopausal female with a history of breast cancer. She reports that she has never smoked. She has never used smokeless tobacco. Currently on treatment with Zoladex . INDICATIONS: Treatment monitoring, screening for osteoporosis, and androgen deprivation therapy. FINDINGS: BONE MINERAL DENSITY OF THE LUMBAR SPINE Bone Mineral Density (BMD) of the lumbar spine was measured from L1-L4 and the average density was calculated to be 0.896 gm/cm2. This corresponds to a Z-score (standard deviations from the mean of age and gender matched controls) of -1.3. There is no previous study available for comparison. BONE MINERAL DENSITY OF THE PROXIMAL FEMUR Bone Mineral Density (BMD) of the left hip total was found to be 1.009 gm/cm2. This corresponds to a Z-score standard deviations from the mean of age and gender matched controls of 0.6. Femoral neck is 0.920 gm/cm2 with a Z-score (standard deviations from the mean of age and gender matched controls) of 0.7. There is no previous study available for comparison. SUMMARY: Bone mineral density is near the normal mean for age (Z-score>-2.0). ADDITIONAL COMMENTS: Postmenopausal Women and Men Over 50: Diagnostic criteria: Osteoporosis: BMD at or below -2.5 T-score; Osteopenia (low bone mass): BMD between -1.0 and -2.5 T-score. If the patient has a history of a fragility fracture, a fracture that occurred with trauma equivalent to a fall from a standing position or less, then the diagnosis is osteoporosis regardless of bone density. The history and data sections of the bone mineral density scan were prepared by Ruth Cline) SAMIRA who is accredited by the International Society of Clinical Densitometry. The overall patient assessment and scan interpretation were performed by Luna Boo M.D. who is certified by the International Society of Clinical Densitometry. [id number] us Alexa Ervin MD IMG DXA PROCEDURES Final R esult * Radiologic Examination of Surgical Specimen (07/25/2024 10:19 AM MICROECONOMICS PROFESSOR) Anatomical Region Laterality Modality Breast N/A Computed Radiogr aphy 07/25/2024 11:3 8 AM MICROECONOMICS PROFESSOR Impressions 07/25/2024 11:38 AM MICROECONOMICS PROFESSOR FINDINGS/IMPRESSION: A LEFT axilla surgical specimen was received from the operating room and was imaged using digital radiography. The lesion of interest, and magnetic seed are included within the surgical specimen. The biopsy marker is not present within the specimen. These findings were communicated to the surgeon. Electronically signed by: Jeronimo Chakraborty D.O. Narrative 07/25/2024 11:38 AM MICROECONOMICS PROFESSOR EXAMINATION: RADIOLOGIC EXAMINATION OF LEFT SURGICAL SPECIMEN HISTORY: 28-year-old woman status post bilateral mastectomy for left breast invasive ductal carcinoma with a biopsy-proven metastatic lymph node in the left axilla. She had the biopsied lymph node in the left axilla localized for excision. Procedure Note Jeronimo Chakraborty DO - 07/25/2024 EXAMINATION: RADIOLOGIC EXAMINATION OF LEFT SURGICAL SPECIMEN HISTORY: 28-year-old woman status post bilateral mastectomy for left breast invasive ductal carcinoma with a biopsy-proven metastatic lymph node in the left axilla. She had the biopsied lymph node in the left axilla localized for excision. IMPRESSION: FINDINGS/IMPRESSION: A LEFT axilla surgical specimen was received from the operating room and was imaged using digital radiography. The lesion of interest, and magnetic seed are included within the surgical specimen. The biopsy marker is not present within the specimen. These findings were communicated to the surgeon. Electronically signed by: Jeronimo Chakraborty D.O. Davida Devlin MD IMG MAMMO PROCEDURES Fi nal Result * Surgical pathology (07/25/2024 9:44 AM MICROECONOMICS PROFESSOR) Tissue specimen (specimen) (Breast, simple mastectomy) 07/25/2024 9:44 AM MICROECONOMICS PROFESSOR Comment:right breast stitch in axillary tail Tissue specimen (specimen) (Breast, simple mastectomy) 07/25/2024 10:07 AM MICROECONOMICS PROFESSOR Comment:left breast stitch i n axillary tail Tissue specimen (specimen) (Lymph node, sentinel breast) 07/25/2024 10:09 AM MICROECONOMICS PROFESSOR Comment:left sentinel lymph node Narrative PATHOLOGY [facility] - 08/01/2024 11:29 AM CDT EPIC results best viewed via link to PDF [facility] [place] [address] Note to Patients: This report may contain a detailed description of human tissue sent by a health care provider to the laboratory for pathologic evaluation. The content of this report is essential for diagnosis and may provide important critical findings. This information may be unfamiliar to patients to review without a medical professional present. It is advised that the patient review this report in the presence of a health care provider who can answer questions and explain the details. SURGICAL PATHOLOGY REPORT FINAL Patient Name: CECY JOYCE Gender: F : 1995 (Age: 28) [address]: [address] [place] [id number] Hospital #: [id number] Taken:07/25/2024 Received:07/25/2024 Reported: 08/01/2024 Patient Type: C EP SAME Client [facility] Service: Surgery Location: Physician(s): Davida Devlin M.D. ERMIAS Burris Diagnosis: A. Breast, right, simple mastectomy - Proliferative fibrocystic changes - Radial scar - No evidence of atypia or malignancy B. Breast, left, simple mastectomy, post-neoadjuvant - Residual invasive ductal carcinoma with treatment effect - Unifocal - Greatest dimension = 40 mm - Histologic grade = 2/3 (tub 3 + nuc 3 + kaleigh 1 = 7/9) by ESBR criteria - Positive for lymphovascular space invasion - Surgical margins negative: nearest = 2 mm, anterior-superior - Ductal carcinoma in situ (DCIS) - Greatest estimated extent = 30 mm - Nuclear grade = 3/3 by SBR criteria - Solid pattern - Surgical margins negative: nearest = >5 mm - Skin with focal dermal lymphovascular invasion - See synoptic report C. Lymph node, left axillary sentinel, excision - Metastatic carcinoma in one out of one lymph nodes (05/25) - Greatest dimension = at least 12 mm - Extracapsular extension identified - Treatment effect present 07/28/2024 09:12 By this signature, I attest that the above diagnosis is based upon my personal examination of the slides(and/or other material indicated in the diagnosis). Sarah Roque MD Report Electronically Reviewed and Signed Out By Sarah Roque MD 08/01/2024 11:29:17 Colette Mae D.O. 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 Operative procedure: bilateral mastectomy Specimen(s) Received: A: Right breast stitch in axillary tail B: Left breast stitch in axillary tail C: Left sentinel lymph node Gross Description: Received in three formalin jars labeled with the patient's identifiers. A. Labeled right breast STITCH IN AXILLARY TAIL -Collected: 0944 on 07/25/2024 -Received: 0955 on 07/25/2024 -Placed in formalin: 1000 on 07/25/2024 -Cold ischemic time: 16 MINUTES -Formalin fixation time: 35 hours -Specimen orientation: Stitch axillary tail -Specimen weight: 667.2 g -Specimen Dimensions: Medial to Lateral: 16.1 cm Superior to Inferior: 18.0 cm Anterior to Posterior: 5.9 cm - Skin: Dimensions: 6.8 by 2.5 cm Nipple/areola diameter: 0.8 x 1.0 cm, 2.5 x 1.8 cm -Margins inked: Anterior/Superior: Blue Anterior/Inferior: Green Posterior: Black -Sectioned: Medial to lateral -Number of slices: 13 -Nipple/areolar complex centered in slice: 7 -Gross findings: Fibroadipose tissue with a yellow-guy area of granularity, grossly consistent with previous biopsy site. -Putative biopsy site: Size: 1.1 x 1.2 cm Location: Central to upper inner breast, 1:00, slice 6 and 7 : -Specimen radiographed: No -Specimen photograph: No -Diagram: No Summary of sections: A1-A2 Putative prior biopsy site, slice 6, bisected A3 Brattice Builder lower inner quadrant, slice 4 A4 Brattice Builder lower inner quadrant, slice 5 A5 Brattice Builder upper inner quadrant, slice 6 A6 Brattice Builder upper inner quadrant, slice 5 A7 Brattice Builder lower outer quadrant, slice 10 A8 Brattice Builder lower outer quadrant, slice 8 A9 Brattice Builder upper outer quadrant, slice 10 A10 Brattice Builder upper outer quadrant, slice 12 A11 Nipple, slice 7 Jar: 4 B. Labeled left breast stitch an axillary tail -Collected: 1007 on 07/25/2024 -Received: 1023 on 07/25/2024 -Placed in formalin: 1033 on 07/25/2024 -Cold ischemic time: 26 minutes -Formalin fixation time: 34.5 hours -Specimen orientation: Stitch axillary tail -Specimen weight: 651.8 g -Specimen Dimensions: Medial to Lateral: 18.5 cm Superior to Inferior: 17.0 cm Anterior to Posterior: 3.1 cm - Skin: Dimensions: 6.5 x 3.5 cm Nipple/areola diameter: 1.0 x 1.0 cm, 2.6 x 2.3 cm -Margins inked: Anterior/Superior: Blue Anterior/Inferior: Green Posterior: Black -Sectioned: Lateral to medial -Number of slices: 14 -Nipple/areolar complex centered in slice: 10 -Gross findings: Fibroadipose tissue an ill-defined fibrotic bed that could represent possible tumor bed. This area spans slices 4-10 and measures 7.0 x 4.2 by 6.5 cm. No definitive mass or lesion is noted. -Ill-defined fibrotic region: Size: 5.0 by 2.5 by 3.0 Location: Lower inner Closest margin: 1.5 cm anterior inferior : -Specimen photograph: Yes -Diagram: Yes Summary of sections: B1-B2 Fibrotic area, slice 5 B3-B4 Fibrotic area, slice 7 B5-B8 Fibrotic area, slice 8 B9-B10 Fibrotic area, slice 10 B11 Random upper-outer, slice 3 B12 Random lower outer, slice 4 B13 Random upper inner, slice 14 B14 Random lower inner, slice 13 B15 Nipple, slice 11 B16-B20 Slice 13 dense fibrotic area B21-B24 Slice 12, dense fibrotic area B25-B28 Slice 14 fibrotic area B29-B32 Area of fibrosis, slice 11 Jar: 4 C. Received in formalin and labeled with the patient's identifiers and left sentinel lymph node are 2 pieces of fibroadipose tissue. The adipose tissue was trimmed away to reveal putative lymph node which measures 3.0 by 2.0 x 1.2 cm. The putative node is serially sectioned and submitted in cassettes C1 through C3. Jar 1. /07/26/2024 15:30 Gross Resident:Colette Mae D.O. CANCER CASE SUMMARY FOR INVASIVE CARCINOMA OF THE BREAST Procedure: Total mastectomy (including nipple-sparing and skin-sparing) Lymph node sampling: [place] lymph node(s) Specimen laterality: Left Tumor site invasive carcinoma: 9 o c lock Histologic type of invasive carcinoma: Invasive ductal carcinoma (no special type or not otherwise specified) Tumor size: Greatest dimension: 40mm Histologic grade (Naty Histologic Score): Tubular differentiation: Score 3 Nuclear pleomorphism: Score 3 Mitotic rate: Score 1 Overall grade: Grade 2: scores of 6 or 7 Tumor focality: Single focus of invasive carcinoma Ductal carcinoma in situ (DCIS): DCIS is present Negative for extensive intraductal component (EIC) Estimated size (extent) of DCIS (greatest dimension using gross & microscopic evaluation): at least 30 mm Architectural patterns: Solid Nuclear grade: Grade 3 (high) Extent of tumor: Not applicable (skin, nipple, and skeletal muscle are absent or are uninvolved) Margins for invasive carcinoma: Margins negative for invasive carcinoma Distance from closest margin: 2 mm Margin: anterior-superior Margins for DCIS: Margins uninvolved by DCIS Greater than 5 mm Lymph nodes: Total number of lymph nodes examined (sentinel and nonsentinel): 1 Number of sentinel nodes examined: 1 Lymph node involvement: Tumor present in regional lymph node(s) Number of lymph nodes with macrometastases (>2 mm):1 Largest Dionisio Metastatic Deposit: Size of largest dionisio metastatic deposit: 12 mm Extranodal extension: Present, greater than 2mm [place] node evaluation: H&E, multiple levels Response to presurgical therapy: In the breast: Probable or definite response to presurgical therapy In the lymph nodes: Probable or definite response to presurgical therapy in metastatic carcinoma MD Kurtz Residual Cancer [place]: Primary tumor bed: 40 x 40 mm Overall cancer cellularity (as percentage of area): 10% Percentage of cancer that is in situ disease: 45% Number of positive lymph nodes: 1 Diameter of largest metastasis: 12mm Residual cancer burden: 3.126 Residual cancer burden class: RCB-II Lymphovascular Invasion: Present Extensive (LVI in two or more blocks) Dermal Lymphovascular Invasion: Present Distant Site(s) Involved, if applicable (select all that apply): Not applicable Pathologic Stage Classification (pTNM, AJCC 8th Edition): TNM descriptors: y (posttreatment) Primary tumor (invasive carcinoma) (pT): pT2: Tumor >20 mm but <=50 mm in greatest dimension Regional Lymph Nodes (pN): Modifier: (sn): Only sentinel node(s) evaluated. Lymph nodes (pN): pN1a: Metastases in 1 to 3 axillary lymph nodes, at least 1 metastasis greater than 2.0 mm Distant metastasis (pM): Not applicable Breast Biomarker Testing performed on Previous Case: [id number] Estrogen Receptor (ER): Positive Guilherme score 8/8 Progesterone Receptor (PgR): Positive Guilherme score 7/8 HER2 (by immunohistochemistry): Equivocal (Score 2+) HER2 (by in situ hybridization): Negative (not amplified) The pathologic stage assigned here should be regarded as provisional, and may change after integration of clinical data not provided with this report. CAP VERSION: InvasiveBreast 4.10 By this signature, I attest that the above diagnosis is based upon my personal examination of the slides(and/or other material). Addenda/Procedures Microscopic slide review and interpretation for this case was performed at [facility], Department of Surgical Pathology, [address] [facility], [place] [id number], [place] [address] CLIA # [id number] The performance characteristics of some immunohistochemical stains, fluorescence in-situ hybridization tests and immunophenotyping by flow cytometry cited in this report (if any) were determined by the Surgical Pathology and Flow Cytometry Departments at [facility] as part of an ongoing data quality consultant program and in compliance with federally mandated regulations drawn from the Clinical Laboratory Improvement Act of 1988 (CLIA '88). Some of these tests rely on the use of analyte specific reagents and are subject to specific labeling requirements by the US Food and Drug Administration. Such diagnostic tests may only be performed in a facility that is certified by the Department of Health and Human Services as a high complexity laboratory under CLIA '88. The FDA has determined that such clearance or approval is not necessary. This test is used for clinical purposes. It should not be regarded as investigational or for research. Nevertheless, federal rules concerning the medical use of analyte specific reagents require that the following disclaimer be attached to the report: This test was developed and its performance characteristics determined by the Surgical Pathology and Flow Cytometry Departments of [facility]. It has not been cleared or approved by the U. S. Food and Drug Administration. IMAGES AND SCANNED DOCUMENTS, IF INCLUDED, ONLY VIEWABLE IN PDF VERSION OF REPORT us Davida Devlin MD LAB PATHOLOGY ORDERABLE S Final Result PATHOLOGY [facility] [phone] * WV AN ELECTIVE ENDOTRACHEAL AIRWAY, WV AN PROCEDURE PLACEHOLDER (07/25/2024 9:37 AM MICROECONOMICS PROFESSOR) Narrative Jennifer Sierra CRNA - 07/25/2024 9:37 AM MICROECONOMICS PROFESSOR Jennifer Sierra CRNA 07/25/2024 9:38 AM Airway Patient location: OR Urgency: elective Indications for airway management: anesthesia Difficult airway: no Staff: Placed by: AIRPORT MAINTENANCE LABORER: Jennifer Sierra CRNA Emergent airway documentation: Risks and benefits discussed: yes Consent obtained: yes Consent given by: patient Airway prep: Preoxygenated: yes Patient position: sniffing Mask difficulty assessment: 1 - vent by mask Spontaneous ventilation during airway: absent Sedation level during airway: GA Final airway details: Final airway type: endotracheal airway Tube type: ETT ETT size: 7.5 mm Cuffed: yes Technique used for successful ETT placement: direct laryngoscopy Insertion site: oral Blade type: Hannah Blade size: 4 Cormack-Lehane (direct): grade I - full view of glottis Initial cuff pressure: 20 cm H2O Cuff volume: 6 mL Cuff inflated with: air ETT to teeth: 22 cm Placement verified by: auscultation and CO2 detection Airway secured with: silk tape Number of attempts: 1 Additional comments: Atraumatic intubation x1 attempt. All mouth, lips, tongue, teeth same condition as baseline Result [facility] Carmelo Fan MD ANESTHESIA ORDERABLES Final Result * WV AN ELECTIVE SUPRAGLOTTIC AIRWAY, W[place] AN PROCEDURE PLACEHOLDER (07/25/2024 9:37 AM MICROECONOMICS PROFESSOR) Narrative Jennifer Sierra CRNA - 07/25/2024 9:37 AM MICROECONOMICS PROFESSOR Jennifer Sierra CRNA 07/25/2024 9:37 AM Airway Patient location: OR Urgency: elective Indications for airway management: anesthesia Difficult airway: no Staff: Placed by: AIRPORT MAINTENANCE LABORER: Jennifer Sierra CRNA Emergent airway documentation: Risks and benefits discussed: yes Consent obtained: yes Consent given by: patient Airway prep: Preoxygenated: yes Patient position: sniffing Mask difficulty assessment: 0 - not attempted Spontaneous ventilation during airway: absent Sedation level during airway: GA Final airway details: Final airway type: supraglottic airway Final supraglottic airway: IGel SGA size: 4 Number of attempts: 1 Ventilation between attempts: none Additional comments: Atraumatic placement. All mouth, lips, tongue, teeth same condition as baseline. Result [facility] Carmelo Fan MD ANESTHESIA ORDERABLES Final Result * POCT hCG, urine (07/25/2024 8:18 AM MICROECONOMICS PROFESSOR) HCG, ur, POC Negative Negative Lot Number [id number] Urine 07/25/2024 8:18 AM MICROECONOMICS PROFESSOR Result [facility] Provider LAB POCT ORDERABLES - DEV ICE Final Result * POCT cotinine (07/25/2024 8:17 AM MICROECONOMICS PROFESSOR) Cotinine, POC Negative Lot Number [id number] QC Negative Control Acceptable QC Positive Control Acceptable Urine 07/25/2024 8:17 AM MICROECONOMICS PROFESSOR us Historical Provider POINT OF CARE TEST ORDERA BLES Final Result * NM Lymphoscintigraphy (Breast) Left (07/25/2024 7:57 AM MICROECONOMICS PROFESSOR) Anatomical Region Laterality Modality Breast N/A Nuclear Medicine 07/25/2024 8:58 AM MICROECONOMICS PROFESSOR Impressions 07/25/2024 10:01 AM MICROECONOMICS PROFESSOR No sentinel nodes identified at one hour post injection. Dictated by: Roxanne Worley M.D. The radiology attending physician has personally reviewed this study, and had reviewed and/or edited this written report and agrees with it. Electronically signed by: George Gibson MD, Ph.D Narrative 07/25/2024 10:01 AM MICROECONOMICS PROFESSOR EXAMINATION: BREAST LYMPHOSCINTIGRAPHY DATE OF STUDY: 07/25/2024 RADIOPHARMACEUTICAL: 530 microcuries Tc-99m Tilmanocept intradermally HISTORY: 28-year-old female with left breast invasive ductal carcinoma. TECHNIQUE: The tracer was injected intradermally in the periareolar region of the left breast at the 9 o'clock position. FINDINGS: Images were obtained beginning at 10-15 minutes and 1 hour after injection in anterior and left lateral projections. Intense dionisio uptake is not seen in any lymph nodes. Procedure Note George Quevedo MD PhD - 07/25/2024 EXAMINATION: BREAST LYMPHOSCINTIGRAPHY DATE OF STUDY: 07/25/2024 RADIOPHARMACEUTICAL: 530 microcuries Tc-99m Tilmanocept intradermally HISTORY: 28-year-old female with left breast invasive ductal carcinoma. TECHNIQUE: The tracer was injected intradermally in the periareolar region of the left breast at the 9 o'clock position. FINDINGS: Images were obtained beginning at 10-15 minutes and 1 hour after injection in anterior and left lateral projections. Intense dinoisio uptake is not seen in any lymph nodes. IMPRESSION: No sentinel nodes identified at one hour post injection. Dictated by: Roxanne Worley M.D. The radiology attending physician has personally reviewed this study, and had reviewed and/or edited this written report and agrees with it. Electronically signed by: George Gibson MD, Ph.D Davida Devlin MD [facility] PROCEDURES Final Result * Yann Post Clip Placement Left (07/18/2024 9:09 AM MICROECONOMICS PROFESSOR) Anatomical Region Laterality Modality Breast Left Mammography 07/18/2024 11:3 5 AM MICROECONOMICS PROFESSOR Impressions 07/18/2024 11:35 AM MICROECONOMICS PROFESSOR Successful ultrasound-guided magnetic seed localization of the area of interest within the LEFT axilla. Dictated by: Chidi Hernandez M.D. The radiology attending physician has personally reviewed this study, and had reviewed and/or edited this written report and agrees with it. Electronically signed by: Chey Wagner M.D. Narrative 07/18/2024 11:35 AM MICROECONOMICS PROFESSOR EXAMINATION: LEFT AXILLA MAGSEED LOCALIZATION UTILIZING ULTRASOUND GUIDANCE; LEFT FULL FIELD DIGITAL MAMMOGRAM WITH DIGITAL BREAST TOMOSYNTHESIS HISTORY: 28 year old female with T2N1 left breast invasive ductal carcinoma with dionisio metastasis (ER,WV+, HER-2 -). She is status post adriamycin/cytoxan, Zoladex and weekly Taxol. She is planning for mastectomy on 07/25/2024 and is presenting for Magseed placement in the biopsied axillary node. BREAST PARENCHYMAL COMPOSITION: The breasts are heterogeneously dense, which may obscure small masses. PROCEDURE AND FINDINGS: The procedure was discussed with the patient and informed consent was obtained. After sterile preparation of the skin, 1% lidocaine was utilized for local anesthesia. A Magseed deployment needle was used to place a magnetic localization seed into the area of interest from an inferolateral approach utilizing sonographic guidance. There was no evidence of significant immediate complication. A single-view LEFT digital mammogram with digital breast tomosynthesis was performed post procedure demonstrates the magnetic seed in expected position. The attending radiologist, Dr. Chey Wagner M.D., was present throughout the entire procedure. Dr. Chidi Hernandez MD (diagnostic radiology transporter) also participated in this examination. 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 She is status post adriamycin/cytoxan, Zoladex and weekly Taxol. She is planning for mastectomy on 07/25/2024 and is presenting for Magseed placement in the biopsied axillary node. BREAST PARENCHYMAL COMPOSITION: The breasts are heterogeneously dense, which may obscure small masses. PROCEDURE AND FINDINGS: The procedure was discussed with the patient and informed consent was obtained. After sterile preparation of the skin, 1% lidocaine was utilized for local anesthesia. A Magseed deployment needle was used to place a magnetic localization seed into the area of interest from an inferolateral approach utilizing sonographic guidance. There was no evidence of significant immediate complication. A single-view LEFT digital mammogram with digital breast tomosynthesis was performed post procedure demonstrates the magnetic seed in expected position. The attending radiologist, Dr. Chey Wagner M.D., was present throughout the entire procedure. Dr. Chidi Hernandez MD (diagnostic radiology transporter) also participated in this examination. IMPRESSION: Successful ultrasound-guided magnetic seed localization of the area of interest within the LEFT axilla. Dictated by: Chidi Hernandez M.D. The radiology attending physician has personally reviewed this study, and had reviewed and/or edited this written report and agrees with it. Electronically signed by: Chey Wagner M.D. Davida Devlin MD IMG MAMMO PROCEDURES Fi nal Result * US Guided Axillary Magseed Placement Left (07/18/2024 9:01 AM MICROECONOMICS PROFESSOR) Anatomical Region Laterality Modality Left Ultrasound 07/18/2024 9:41 AM MICROECONOMICS PROFESSOR Impressions 07/18/2024 11:35 AM MICROECONOMICS PROFESSOR Successful ultrasound-guided magnetic seed localization of the area of interest within the LEFT axilla. Dictated by: Chidi Hernandez M.D. The radiology attending physician has personally reviewed this study, and had reviewed and/or edited this written report and agrees with it. Electronically signed by: Chey Wagner M.D. Narrative 07/18/2024 11:35 AM MICROECONOMICS PROFESSOR EXAMINATION: LEFT AXILLA MAGSEED LOCALIZATION UTILIZING ULTRASOUND GUIDANCE; LEFT FULL FIELD DIGITAL MAMMOGRAM WITH DIGITAL BREAST TOMOSYNTHESIS HISTORY: 28 year old female with T2N1 left breast invasive ductal carcinoma with dionisio metastasis (ER,WV+, HER-2 -). She is status post adriamycin/cytoxan, Zoladex and weekly Taxol. She is planning for mastectomy on 07/25/2024 and is presenting for Magseed placement in the biopsied axillary node. BREAST PARENCHYMAL COMPOSITION: The breasts are heterogeneously dense, which may obscure small masses. PROCEDURE AND FINDINGS: The procedure was discussed with the patient and informed consent was obtained. After sterile preparation of the skin, 1% lidocaine was utilized for local anesthesia. A Magseed deployment needle was used to place a magnetic localization seed into the area of interest from an inferolateral approach utilizing sonographic guidance. There was no evidence of significant immediate complication. A single-view LEFT digital mammogram with digital breast tomosynthesis was performed post procedure demonstrates the magnetic seed in expected position. The attending radiologist, Dr. Chey Wagner M.D., was present throughout the entire procedure. Dr. Chidi Hernandez MD (diagnostic radiology transporter) also participated in this examination. 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 She is status post adriamycin/cytoxan, Zoladex and weekly Taxol. She is planning for mastectomy on 07/25/2024 and is presenting for Magseed placement in the biopsied axillary node. BREAST PARENCHYMAL COMPOSITION: The breasts are heterogeneously dense, which may obscure small masses. PROCEDURE AND FINDINGS: The procedure was discussed with the patient and informed consent was obtained. After sterile preparation of the skin, 1% lidocaine was utilized for local anesthesia. A Magseed deployment needle was used to place a magnetic localization seed into the area of interest from an inferolateral approach utilizing sonographic guidance. There was no evidence of significant immediate complication. A single-view LEFT digital mammogram with digital breast tomosynthesis was performed post procedure demonstrates the magnetic seed in expected position. The attending radiologist, Dr. Chey Wagner M.D., was present throughout the entire procedure. Dr. Chidi Hernandez MD (diagnostic radiology transporter) also participated in this examination. IMPRESSION: Successful ultrasound-guided magnetic seed localization of the area of interest within the LEFT axilla. Dictated by: Chidi Hernandez M.D. The radiology attending physician has personally reviewed this study, and had reviewed and/or edited this written report and agrees with it. Electronically signed by: Chey Wagner M.D. us Davida Devlin MD IMG US PROCEDURES Final Result * US Axillary Breast Left (06/28/2024 12:23 PM MICROECONOMICS PROFESSOR) Anatomical Region Laterality Modality Upper Extremities Left Ultrasound 06/28/2024 12:3 5 PM MICROECONOMICS PROFESSOR Impressions 06/28/2024 12:35 PM MICROECONOMICS PROFESSOR Good treatment response with normal appearance to LEFT axillary lymph nodes. Biopsy marker remains visible OVERALL FINAL ASSESSMENT: BI-RADS Category 6: Known Biopsy-Proven Malignancy. RECOMMENDATION: Continued clinical and oncologic management of known malignancy. Electronically signed by: Nargis Doherty M.D. Narrative 06/28/2024 12:35 PM MICROECONOMICS PROFESSOR EXAMINATION: LEFT AXILLARY ULTRASOUND HISTORY: 28-year-old female status post neoadjuvant chemotherapy for LEFT breast cancer and metastatic disease to the LEFT axilla. She plans for treatment with LEFT mastectomy. COMPARISON: Prior ultrasounds on 03/23/2024 and 11/27/2023 TECHNIQUE: Directed ultrasound evaluation of the LEFT axilla was performed by a trained pilot boat captain and by . ULTRASOUND FINDINGS: Sonography within the LEFT axilla reveals multiple normal-appearing lymph nodes without cortical thickening at this time. The twirl biopsy marker was able to be identified and could be localized if desired. These findings were discussed with the patient by . Procedure Note Nargis Doherty MD - 06/28/2024 EXAMINATION: LEFT AXILLARY ULTRASOUND HISTORY: 28-year-old female status post neoadjuvant chemotherapy for LEFT breast cancer and metastatic disease to the LEFT axilla. She plans for treatment with LEFT mastectomy. COMPARISON: Prior ultrasounds on 03/23/2024 and 11/27/2023 TECHNIQUE: Directed ultrasound evaluation of the LEFT axilla was performed by a trained pilot boat captain and by . ULTRASOUND FINDINGS: Sonography within the LEFT axilla reveals multiple normal-appearing lymph nodes without cortical thickening at this time. The twirl biopsy marker was able to be identified and could be localized if desired. These findings were discussed with the patient by . IMPRESSION: Good treatment response with normal appearance to LEFT axillary lymph nodes. Biopsy marker remains visible OVERALL FINAL ASSESSMENT: BI-RADS Category 6: Known Biopsy-Proven Malignancy. RECOMMENDATION: Continued clinical and oncologic management of known malignancy. Electronically signed by: Nargis Doherty M.D. Davida Devlin MD IMG US PROCEDURES Final Result from Last 3 Months Insurance [facility] PLUS [facility] PL[facility] PL[facility] Care Teams Documentation Nurse Relationship Specialty Start Date End Date Torri Wiseman NP [address] [place] [id number] PCP - General Obstetrics and Gynecology 12/07/23 Alexa Ervin MD [address] [place] [address] [id number] [place] [address] Medical Oncologist/Auction Assistant Medical Oncology 12/15/23
--- OUTSIDE RECORDS SUMMARY | 2024-09-16 22:08 | XMS_ITS | Continuity of Care Document ---
Author Organization [facility] Address [address] [place] [address] Phone Care Team Providers Care Chief Hospital Administrator Name Role Phone Flor Bansal OT Unavailable Unavailable Procedures Procedure Date Identified as not an unhealthy alcohol u ser Not identified as unhealthy alcohol via screening OT Evaluation Low Complexity Therapeutic Activities Neuromuscular Re-Ed Therapeutic Exercise Hot or Cold Pack Advance Directives Directive Yes / No Effective Date File Name No Information Encounters Encounter Description Practice Location Reason(s) For Visit Diagnoses Date Provider Providers Copied on Encounter [facility], [address], [place], [place], [id number], tel:[phone] [place] No Information Nimisha Ray. . Referring Provider: Josh Castellon [address] [place] [address], [id number]. tel:[phone] Family History Family Member Type Diagnosis Age At Onset No Information Payers Payer name Insurance type Covered democrat ID Malina steel(s) [facility] CI [id number] Social History Type Description Quantity Date Captured Comments Alcohol Use Details Unknown Caffeine Use Details Unknown Tobacco Use Status Current non-smoker Smoking Status Never smoker Non-Smoking Tobacco Use Details : No Details Available : No Details Available Sex Female Chief Complaint And Reason For Visit No Information Reason For Referral Reason For Referral No Information Plan Of Treatment Date Type Action Status Appointment Cecy Joyce BOOKED History Of Present Illness Encounter Date Complaint History Of Prese nt Illness No Information Functional Status Date Functional Assessmen t No Information Instructions Date Instruction Additional Infor mation No Information Assessments Type Assessment Date No Information Patient Care Teams Name Effective Dates (start - stop) Status Members No Information
--- OUTSIDE RECORDS SUMMARY | 2024-09-16 22:08 | XMS_ITS | Clinical Summary ---
Author Organization [facility] Address [address] [place] [phone] Care Team Providers Care Grief Counselor Name Role Phone Torri Wiseman NP Primary Care Provider Alexa Ervin MD Unavailable [phone] Allergies No known active allergies Medications escitalopram [...] (300 mg total) by mouth every morning 024 Active letrozole (FEMARA) 2.5 mg tablet Take [...] hours as needed for pain 20 tablet 025 Active ondansetron (ZOFRAN) 8 mg tabletIndication s:Malignant [...] 08/11/2024 Malignant neoplasm of left female breast 025 Decreased cardiac ejection fraction 12/30/2023 Encounter for [...] from 12/07/2023:Stage IIB(cT2, cN1, cM0, G3, ER+, WA+, HER2-) - Signed by Rubens Prescott MD on 09/05/2024 Pathologic stage from 07/25/2024: ypT2, pN1a(sn), cM0, G2, ER+, WA+, HER2- - Unsigned Acne 11/16/2013 Encounters Date Type Department Care Team Description 09/15/2024 12:00 PM CDT Infusion [facility] - Infusion [address] [facility] Floor 5 [place] [address] Malignant neoplasm of upper-inner quadrant of left breast in female, estrogen receptor positive (HCC) (Primary Dx) 09/15/2024 Orders Only [facility] [address] [facility] 8 [place] [address] Jillian Joseph RN 09/13/2024 12:01 PM CDT Anesthesia Event [facility] Operating Room 2 [place] [address] Patricia Duron MD McMillan, Brennan Michael, MD 09/13/2024 10:00 AM CDT - 09/13/2024 12:40 PM CDT Surgery [facility] Operating Room 2 [place] [address] Arabella Go MD EXCHANGE IMPLANT BREAST - BILATERAL 09/13/2024 8:43 AM CDT - 09/13/2024 3:31 PM CDT Hospital Encounter [facility] Operating Room 2 [place] [address] Arabella Go MD History of breast reconstruction [Z98.890] (Primary Dx) Discharge Disposition: Discharge to home or self care 09/07/2024 1:00 PM CDT Office Visit [facility] Surgery [address] [place] [address] [address] [place] [address] Arabella Go MD Malignant neoplasm of upper-inner quadrant of left breast in female, estrogen receptor positive (HCC) (Primary Dx) 09/06/2024 Telephone [facility] Radiation Oncology [address] [place] [address] Nay Newton RN 09/05/2024 10:30 AM CDT Consult [facility] Radiation Oncology [address] [place] [address] Shabnam Romo MD PhD Malignant neoplasm of upper-inner quadrant of left breast in female, estrogen receptor positive (HCC) 09/01/2024 1:30 PM CDT Office Visit [facility] Surgery [address] [place] [address] [address] [place] [address] S/P breast reconstruction (Primary Dx) 08/24/2024 11:30 AM CDT Office Visit [facility] Surgery [address] [place] [address] Road [address] [place] [address] S/P breast reconstruction (Primary Dx) 08/19/2024 9:30 AM CDT Office Visit [facility] Cardiology [address] [facility] [address] [place] [address] Chidi Rowan MD Encounter for monitoring cardiotoxic drug therapy (Primary Dx); Malignant neoplasm of upper-inner quadrant of left breast in female, estrogen receptor positive (HCC); High risk medication use 08/18/2024 12:15 PM CDT Clinical Support [facility] - Infusion [address] [facility] Floor 5 [place] [address] Malignant neoplasm of upper-inner quadrant of left breast in female, estrogen receptor positive (HCC) 08/18/2024 12:00 PM CDT Infusion [facility] - Infusion [address] [facility] Floor 5 [place] [address] Malignant neoplasm of upper-inner quadrant of left breast in female, estrogen receptor positive (HCC) (Primary Dx) 08/17/2024 12:45 PM CDT Office Visit [facility] Surgery [facility] [address] [place] [address] Arabella Go MD S/P breast reconstruction (Primary Dx); Malignant neoplasm of upper-inner quadrant of left breast in female, estrogen receptor positive (HCC) 08/16/2024 Telephone [facility] Oncology [address] [place] [address] Floor 8 [place] [address] Alexa Ervin MD 08/15/2024 12:30 PM CDT Clinical Support [facility] Bone Health 10 [facility] Building 2 [address] [place] [phone] Post-menopausal (Primary Dx); Malignant neoplasm of upper-inner quadrant of left breast in female, estrogen receptor positive (HCC); long-term (current) use of aromatase inhibitors; Screening for osteoporosis; Androgen deprivation therapy; Osteopenia of lumbar spine 08/15/2024 9:35 AM CDT Clinical Support [facility] Surgery [address] [place] [address] Floor 8 [place] [phone] Malignant neoplasm of upper-inner quadrant of left breast in female, estrogen receptor positive (HCC) (Primary Dx) 08/15/2024 Telephone [facility] Surgery [address] [place] [phone] Rachana Mendoza RN 08/12/2024 Telephone [facility] Oncology [address] [place] [phone] Jermaine Cordoba MA 08/11/2024 3:20 PM CDT Office Visit [facility] Oncology [address] [place] [phone] Alexa Ervin MD long-term (current) use of aromatase inhibitors (Primary Dx); Malignant neoplasm of upper-inner quadrant of left breast in female, estrogen receptor positive (HCC) 08/09/2024 10:45 AM CDT Office Visit [facility] Surgery [address] [place] [phone] Davida Devlin MD Malignant neoplasm of upper-inner quadrant of left breast in female, estrogen receptor positive (HCC) (Primary Dx) 08/02/2024 Telephone [facility] Radiation Oncology [address] [place] [address] [place] [address] Shabnam Romo MD PhD 08/01/2024 1:30 PM CDT Office Visit [facility] Surgery [facility] [address] [place] [address] Malignant neoplasm of upper-inner quadrant of left breast in female, estrogen receptor positive (HCC) 08/01/2024 Telephone [facility] Surgery [address] [place] [phone] Rachana Mendoza RN 08/01/2024 Orders Only [facility] Surgery [address] [place] [phone] Davida Devlin MD Malignant neoplasm of upper-inner quadrant of left breast in female, estrogen receptor positive (HCC) (Primary Dx) 08/01/2024 Results Follow-Up [facility] Surgery [address] [place] [address] 8 [place] [address] Davida Devlin MD 07/29/2024 Telephone [facility] Surgery [address] [facility] [address] [place] [address] Arabella Go MD 07/26/2024 Orders Only [facility] Oncology [address] [facility] Floor 8 [place] [phone] Alexa Ervin MD 07/25/2024 9:15 AM NEUROLOGY TECHNOLOGIST - 07/25/2024 12:15 PM NEUROLOGY TECHNOLOGIST Surgery [facility] Operating Room [address] [place], [place] [address] Davida Devlin MD BILATERAL MASTECTOMY SIMPLE - skin sparing 07/25/2024 9:02 AM NEUROLOGY TECHNOLOGIST Anesthesia Event [facility] Operating Room [address] [place] [place] [address] Carmelo Fan MD Heuvelman, Katherine Marie, NP 07/25/2024 7:57 AM NEUROLOGY TECHNOLOGIST - 07/25/2024 11:59 PM NEUROLOGY TECHNOLOGIST Hospital Encounter [facility] Imaging [address] [place] [place] [address] Malignant neoplasm of upper-inner quadrant of left breast in female, estrogen receptor positive (HCC) Discharge Disposition: Discharge to home or self care 07/25/2024 6:35 AM NEUROLOGY TECHNOLOGIST - 07/25/2024 2:41 PM NEUROLOGY TECHNOLOGIST Hospital Encounter [facility] Operating Room [address] [place] [address] Davida Devlin MD Malignant neoplasm of left female breast, unspecified estrogen receptor status, unspecified site of breast (HCC) Discharge Disposition: Discharge to home or self care 07/25/2024 6:32 AM NEUROLOGY TECHNOLOGIST - 07/25/2024 11:59 PM NEUROLOGY TECHNOLOGIST Hospital Encounter [facility] Imaging [address] [place] [address] Malignant neoplasm of upper-inner quadrant of left breast in female, estrogen receptor positive (HCC) Discharge Disposition: Discharge to home or self care 07/21/2024 12:30 PM NEUROLOGY TECHNOLOGIST Infusion [facility] - Infusion [address] [facility] Floor 5 [place] [address] Malignant neoplasm of upper-inner quadrant of left breast in female, estrogen receptor positive (HCC) (Primary Dx) 07/18/2024 8:10 AM NEUROLOGY TECHNOLOGIST - 07/18/2024 11:59 PM NEUROLOGY TECHNOLOGIST Hospital Encounter [facility] - Breast Imaging [address] [facility] Floor 8 [place] [address] Malignant neoplasm of upper-inner quadrant of left breast in female, estrogen receptor positive (HCC) Discharge Disposition: Discharge to home or self care 07/18/2024 7:41 AM NEUROLOGY TECHNOLOGIST - 07/18/2024 11:59 PM NEUROLOGY TECHNOLOGIST Hospital Encounter [facility] - Breast Imaging [address] [facility] Floor 8 [place] [address] Malignant neoplasm of upper-inner quadrant of left breast in female, estrogen receptor positive (HCC) Discharge Disposition: Discharge to home or self care 07/12/2024 Telephone [facility] Oncology [address] [place] [address] Floor 8 [place] [address] Alexa Ervin MD 07/08/2024 Orders Only [facility] Surgery [facility] Floor 8 [place] [address] Davida Devlin MD Malignant neoplasm of upper-inner quadrant of left breast in female, estrogen receptor positive (HCC) (Primary Dx) 07/05/2024 Telephone [facility] Cardiology [address] [place] [address] [facility] 8th [place] [address] [place] [address] Keara Benson 07/05/2024 Telephone [facility] [address] [facility] [address] [place] [phone] Elsa Bishop Scheduling Appointments 06/28/2024 11:30 AM NEUROLOGY TECHNOLOGIST - 06/28/2024 11:59 PM NEUROLOGY TECHNOLOGIST Hospital Encounter [facility] - Breast Imaging [address] [facility] Floor 8 [place] [address] Malignant neoplasm of upper-inner quadrant of left breast in female, estrogen receptor positive (HCC) Discharge Disposition: Discharge to home or self care 06/28/2024 11:00 AM NEUROLOGY TECHNOLOGIST Office Visit [facility] Surgery [address] [facility] Floor 8 [place] [address] Davida Devlin MD Malignant neoplasm of upper-inner quadrant of left breast in female, estrogen receptor positive (HCC) (Primary Dx) 06/23/2024 12:00 PM NEUROLOGY TECHNOLOGIST Infusion [facility] - Infusion [address] [facility] Floor 5 [place] [address] Malignant neoplasm of upper-inner quadrant of left breast in female, estrogen receptor positive (HCC) (Primary Dx) from Last 3 Months Immunizations Immunization Administration Dates Next Due HPV9 05/15/2016,11/13/2015 Influenza, Quadrivalent, Spl it, Preservative Free, Intramuscular 02/03/2020,02/03/2018 Influenza, Unspecified 05/03/2021,07/06/2017,04/2018 Meningococcal B, Recombinant (Trumenba) 05/15/20 16,11/13/2015 Tdap 02/03/2020 Surgical History Surgery Date Site/Laterality Comments WISDOM TOOTH EXTRACTION 05/25/2015 - 05/24/2016 BREAST BIOPSY 12/07/2023 Right Benign US GUIDED BIOPSY LYMPH NODE SUPERFICIAL LEFT 12/07/2023 N/A +Mets BREAST BIOPSY 12/07/2023 Left +IDC LASIK 10/24/2023 - 11/22/2023 Bilateral PORTACATH PLACEMENT 12/24/[address] TISSUE MARK[address] ACEMENT LEFT 07/18/2024 Left MASTECTOMY 07/25/2024 Bilateral TISSUE TEACHER RESOURCE PLACEMENT 07/25/2024 Bilateral DE QUERVAIN'S RELEASE Right Medical History Medical History Date Comments Depression Breast cancer (HCC) Left Breast IDC with mets to lymph node dxd 11/2023 PONV (postoperative nausea and vomiting) Anxiety Family History Medical History Relation Name Comments No Known Problems Father Diabetes Maternal Grandfather Breast cancer Maternal Grandmother Skin cancer Maternal Grandmother Diabetes Mother Breast cancer Mother's Sister Prostate cancer Paternal Grandfather Breast cancer Paternal Grandmother stage 4 Anesthesia problems Neg Hx Relation Name Status Comments Father Maternal Grandfather Maternal Grandmother Mother Alive Mother's Sister Paternal Grandfather Paternal Grandmother Social History Tobacco Use Types Packs/Day Years [...] on file Legal Sex Female 8:57 AM NEUROLOGY TECHNOLOGIST Gender Identity Female 07/25/2021 2:27 PM NEUROLOGY TECHNOLOGIST Sexual Orientation Straight 07/25/2021 2: 27 PM NEUROLOGY TECHNOLOGIST Obstetrics History Para Term AB IAB SAB Ectopic Multiple Livin g Live Births 0 0 0 0 0 0 0 0 0 0 0 Last Filed Vital Signs Vital Sign Reading [...] 09/13/2024 9:45 AM CDT Plan of Treatment Health Maintenance Due Date Last Done Comments Cervical Cancer Screening 1995 Hepatitis C Screening 1995 Varicella Vaccines (1 of 2 - 13+ 2-dose series) 2010 Hepatitis B Screening 08/01/2015 Regular Well Visit/Exam 18-64 08/01/2015 Pneumococcal vaccine <65 (1 of 2 - PCV) 2016 Zoster Vaccine (1 of 2) 2016 HPV Vaccines (3 - Risk 3-dos e series) 09/13/2016 05/15/2016, 11/13/2015 Covid-19 Vaccine (4 - 2023-2 5 season) 2024 05/03/2021, 08/24/2020, 08/03/2020 Depression Screening 11/24/2024 11/25/2023 Influenza Vaccine (Season Ended) 2025 05/03/2021, 02/03/2020, 02/03/2018, Additional history exists DTaP/Tdap/Td Vaccine (2 - Td or Tdap) 02/02/2030 02/03/2020 Medical Devices Implanted Type Area Cleat Layer Device Identifier Shelf Expiration Date Model / Serial / Lot [employer] Implant Mammary Smooth Mod High Profile Boost 635cc [id number] - [id number] - [id number] Implanted:Qty: 1 on 09/13/2024 by Arabella Go MD at [facility] Breast Left: Breast [employer] [id number] 03/06/2029 [id number] / [id number] / [id number] [employer] Implant Mammary Smooth Mod High Profile Boost 635cc [id number] - [id number] - [id number] Implanted:Qty: 1 on 09/13/2024 by Arabella Go MD at [facility] Breast Right: Breast [employer] [id number] 04/13/2029 [id number] / [id number] / [employer] Marker Biospy Site Top Hat Shape Senomark Bdmmm-Ognsjk-9 s - [id number] Implanted:Qty: 1 on 12/07/2023 by Vladimir Moulton MD at [facility] Left: Breast [employer] [id number] 04/14/2024 SMARK-DWAYNE ERO-2S / / [id number] [employer] Marker Tissue Deployment Device [id number] [employer] [id number] - [id number] Implanted:Qty: 1 on 12/07/2023 by Vladimir Moulton MD at [facility] Clip Axilla [employer] [id number] 04/05/2028 [id number] / / [id number] [employer] Eviva 13cm Identifier Biopsy Site Ruwcz-Mnhpl-68 - [id number] Implanted:Qty: 1 on 12/07/2023 by Vladimir Moulton MD at [facility] [employer] [id number] 07/27/2024 COX SOUTHRK-RA VA-13 / / [id number] [employer] [place] Power Isp Mri 1lum [employer] Clearvue Titanium 8fr [id number] - [id number] Implanted:Qty: 1 on 12/24/2023 at [facility] Right: Subclavian [employer] 02/21/2025 [id number] / / [id number] [employer] Marker Tissue Needle Delivery Spiral Capped Seed [employer] Stainless Steel Low Nickel Sentimag [id number] - [id number] Implanted:Qty: 1 on 07/18/2024 by Chey Wagner MD at [facility] Left: Axilla [employer] [id number] 12/22/2025 [id number] / / [id number] [employer] Graft Tissue Dermis Accelular Cortiva 0.8 1.2mm 26w09ys Sterile [id number] - [id number] Implanted:Qty: 1 on 07/25/2024 at [facility] Left: Breast [employer] 05/24/2027 [id number] / [id number] / [id number] [employer] Graft Tissue Dermis Accelular Cortiva 0.8 1.2mm 15x60rf Sterile [id number] - [id number] Implanted:Qty: 1 on 07/25/2024 at [facility] Right: Breast [employer] 05/24/2027 [id number] / [id number] / [id number] Explanted Type Area Cleat Layer Device Identifier Shelf Expiration Date Model / Serial / Lot [employer] Memory[employer] Boost Resterilizable Gel Sizer Explanted:Qty: 1 on 09/13/2024 by Arabella Go MD at [facility] Breast Bilateral: Breast Other 05/12/2029 [id number] / [id number] Description:13.8CM/5.5CM [employer] Sizer Breast Mgel Smth Round Mod Hi Profile Boost 635cc Rpsb Tteotb778u - [id number] - [id number] Explanted:Qty: 1 on 09/13/2024 by Arabella Go MD at [facility] Bilateral: Breast [employer] 05/04/2029 [id number] S / [id number] Description:14.2CM/5.7CM [employer] Implant Mammary Natrelle Te Smooth 608h-Pc-94-T With Fourte 431m-Yx-59-T - [id number] Implanted:Qty: 1 on 07/25/2024 at [facility] Explanted:Qty: 1 on 09/13/2024 by Arabella Go MD at [facility] Right: Breast [employer] 06/20/2028 133S-MX-1 4-T / [id number] / [employer] Implant Mammary Natrelle Te Smooth 022l-Qr-88-T With Fourte 037v-Kj-90-T - [id number] Implanted:Qty: 1 on 07/25/2024 at [facility] Explanted:Qty: 1 on 09/13/2024 by Arabella Go MD at [facility] Left: Breast [employer] 06/06/2028 133S-MX-1 4-T / [id number] / Procedures Procedure Name Priority Date/Time Associated [...] breast in female, estrogen receptor positive (HCC) long-term (current) use of aromatase inhibitors RADIOLOGIC EXAMINATION OF SURGICAL SPECIMEN Schedule Routine, Read Routine (OP Routine) 07/25/2024 10:19 AM NEUROLOGY TECHNOLOGIST Malignant neoplasm of upper-inner quadrant of left breast in female, estrogen receptor positive (HCC) SURGICAL PATHOLOGY Routine 07/25/2024 9:44 AM NEUROLOGY TECHNOLOGIST Malignant neoplasm of left female breast, unspecified estrogen receptor status, unspecified site of breast (HCC) WA AN PROCEDURE PLACEHOLDER Routine 07/25/2024 9:37 AM NEUROLOGY TECHNOLOGIST WA AN ELECTIVE ENDOTRACHEAL AIRWAY Routine 07/25/2024 9:37 AM NEUROLOGY TECHNOLOGIST WA AN PROCEDURE PLACEHOLDER Routine 07/25/2024 9:37 AM NEUROLOGY TECHNOLOGIST WA AN ELECTIVE SUPRAGLOTTIC AIRWAY Routine 07/25/2024 9:37 AM NEUROLOGY TECHNOLOGIST INSERTION TISSUE TEACHER RESOURCE - BREAST 07/25/2024 9:01 AM NEUROLOGY TECHNOLOGIST Malignant neoplasm of left female breast, unspecified estrogen receptor status, unspecified site of breast (HCC) Special Needs navigator, blue dye, sentimag, magseed instruments REMOVAL MAG SEED 07/25/2024 9:01 AM NEUROLOGY TECHNOLOGIST Malignant neoplasm of left female breast, unspecified estrogen receptor status, unspecified site of breast (HCC) Special Needs navigator, blue dye, sentimag, magseed instruments BIOPSY SENTINEL LYMPH NODE WITH LYMPHOSCINTIGRAPHY 07/25/2024 9:01 AM NEUROLOGY TECHNOLOGIST Malignant neoplasm of left female breast, unspecified estrogen receptor status, unspecified site of breast (HCC) Special Needs navigator, blue dye, sentimag, magseed instruments MASTECTOMY SIMPLE 07/25/2024 9:01 AM NEUROLOGY TECHNOLOGIST Malignant neoplasm of left female breast, unspecified estrogen receptor status, unspecified site of breast (HCC) Special Needs navigator, blue dye, sentimag, magseed instruments POCT HCG, URINE Routine 07/25/2024 8:18 AM NEUROLOGY TECHNOLOGIST POCT COTININE Routine 07/25/2024 8:17 AM NEUROLOGY TECHNOLOGIST NM LYMPHOSCINTIGRAPHY (BREAST) LEFT Schedule Routine, Read Routine (OP Routine) 07/25/2024 7:57 AM NEUROLOGY TECHNOLOGIST Malignant neoplasm of upper-inner quadrant of left breast in female, estrogen receptor positive (HCC) YANN POST CLIP PLACEMENT LEFT Schedule Routine, Read Routine (OP Routine) 07/18/2024 9:09 AM NEUROLOGY TECHNOLOGIST Malignant neoplasm of upper-inner quadrant of left breast in female, estrogen receptor positive (HCC) US GUIDED AXILLARY MAGSEED PLACEMENT LEFT Schedule Routine, Read Routine (OP Routine) 07/18/2024 9:01 AM NEUROLOGY TECHNOLOGIST Malignant neoplasm of upper-inner quadrant of left breast in female, estrogen receptor positive (HCC) US AXILLARY LEFT Schedule Routine, Read Routine (OP Routine) 06/28/2024 12:23 PM NEUROLOGY TECHNOLOGIST Malignant neoplasm of upper-inner quadrant of left breast in female, estrogen receptor positive (HCC) from Last 3 Months Results * Cotinine, urine (09/13/2024 9:08 AM CDT) Cotinine, ur Negative Negative Urine 09/13/2024 9:08 AM CDT 09/13/2024 9:12 AM CDT us Arabella Go MD LAB URINE ORDERABLES Final Result [facility] [address] [place] [facility] Department [place] [address] * POCT hCG, urine (09/13/2024 8:30 AM [...] Bone mineral density was performed on a HoloAposense Discovery Densitometer. Based on machine cross-calibration and [...] by the International Society of Clinical Densitometry. [id number] us Alexa Ervin MD IMG DXA PROCEDURES Final R esult * Radiologic Examination of Surgical Specimen (07/25/2024 10:19 AM NEUROLOGY TECHNOLOGIST) Anatomical Region Laterality Modality Breast N/A Computed Radiogr aphy 07/25/2024 11:3 8 AM NEUROLOGY TECHNOLOGIST Impressions 07/25/2024 11:38 AM NEUROLOGY TECHNOLOGIST FINDINGS/IMPRESSION: A LEFT axilla surgical specimen was received from the operating room and was imaged using digital radiography. The lesion of interest, and magnetic seed are included within the surgical specimen. The biopsy marker is not present within the specimen. These findings were communicated to the surgeon. Electronically signed by: Jeronimo Chakraborty D.O. Narrative 07/25/2024 11:38 AM NEUROLOGY TECHNOLOGIST EXAMINATION: RADIOLOGIC EXAMINATION OF LEFT SURGICAL SPECIMEN [...] by: Jeronimo Chakraborty D.O. Davida Devlin MD IM MAMMO PROCEDURES Fi nal Result * Surgical pathology (07/25/2024 9:44 AM NEUROLOGY TECHNOLOGIST) Tissue specimen (specimen) (Breast, simple mastectomy) 07/25/2024 9:44 AM NEUROLOGY TECHNOLOGIST Comment:right breast stitch in axillary tail Tissue specimen (specimen) (Breast, simple mastectomy) 07/25/2024 10:07 AM NEUROLOGY TECHNOLOGIST Comment:left breast stitch i n axillary tail Tissue specimen (specimen) (Lymph node, sentinel breast) 07/25/2024 10:09 AM NEUROLOGY TECHNOLOGIST Comment:left sentinel lymph node Narrative PATHOLOGY BJ[facility] - 08/01/2024 11:29 AM CDT EPIC results best viewed via link to PDF [facility] [place] [address] Note to Patients: This report may contain [...] Gender: F : 1995 (Age: 28) Address: [address] [place] [id number] Hospital #: [id number] Taken:07/25/2024 Received:07/25/2024 Reported: 08/01/2024 Patient Type: [facility] EP SAME Client [facility] Service: Surgery Location: Physician(s): Davida Devlin M.D. [...] prior biopsy site, slice 6, bisected A3 Computer Video Game Designer lower inner quadrant, slice 4 A4 Computer Video Game Designer lower inner quadrant, slice 5 A5 Computer Video Game Designer upper inner quadrant, slice 6 A6 Computer Video Game Designer upper inner quadrant, slice 5 A7 Computer Video Game Designer lower outer quadrant, slice 10 A8 Computer Video Game Designer lower outer quadrant, slice 8 A9 Computer Video Game Designer upper outer quadrant, slice 10 A10 Computer Video Game Designer upper outer quadrant, slice 12 A11 Nipple, [...] in cassettes C1 through C3. Jar 1. 07/26/2024 15:30 Gross Resident:Colette Mae D.O. CANCER CASE SUMMARY FOR INVASIVE CARCINOMA OF THE BREAST Procedure: Total mastectomy (including nipple-sparing and skin-sparing) Lymph node sampling: [place] lymph node(s) Specimen laterality: Left Tumor site [...] mm Extranodal extension: Present, greater than 2mm Courtenay node evaluation: H&E, multiple levels Response to presurgical therapy: In the breast: Probable or definite response to presurgical therapy In the lymph nodes: Probable or definite response to presurgical therapy in metastatic carcinoma MD Kurtz Residual Cancer [place]: Primary tumor bed: 40 x 40 mm [...] Breast Biomarker Testing performed on Previous Case: [id number] Estrogen Receptor (ER): Positive Guilherme score 8/8 [...] interpretation for this case was performed at [facility], Department of Surgical Pathology, [address] [facility], [id number], [place] [address] CLIA # [id number] The performance characteristics of some immunohistochemical stains, fluorescence in-situ hybridization tests and immunophenotyping by flow cytometry cited in this report (if any) were determined by the Surgical Pathology and Flow Cytometry Departments at [facility] as part of an ongoing water quality tester program and in compliance with federally mandated [...] Surgical Pathology and Flow Cytometry Departments of [facility]. It has not been cleared or approved by the U. S. Food and Drug Administration. IMAGES AND SCANNED DOCUMENTS, IF INCLUDED, ONLY VIEWABLE IN PDF VERSION OF REPORT us Davida Devlin MD LAB PATHOLOGY ORDERABLE S Final Result PATHOLOGY [facility] [phone] * WA AN ELECTIVE ENDOTRACHEAL AIRWAY, WA AN PROCEDURE PLACEHOLDER (07/25/2024 9:37 AM NEUROLOGY TECHNOLOGIST) Jennifer Denny CRNA - 07/25/2024 9:37 AM NEUROLOGY TECHNOLOGIST Jennifer Sierra CRNA 07/25/2024 9:38 AM Airway Patient location: OR Urgency: elective Indications for airway management: anesthesia Difficult airway: no Staff: Placed by: FAMILY LAW PARALEGAL: Jennifer Sierra CRNA Emergent airway documentation: Risks [...] tongue, teeth same condition as baseline Result [facility] Carmelo Fan MD ANESTHESIA ORDERABLES Final Result * WA AN ELECTIVE SUPRAGLOTTIC AIRWAY, WA AN PROCEDURE PLACEHOLDER (07/25/2024 9:37 AM NEUROLOGY TECHNOLOGIST) Narrative Jennifer Sierra CRNA - 07/25/2024 9:37 AM NEUROLOGY TECHNOLOGIST Jennifer Sierra CRNA 07/25/2024 9:37 AM Airway Patient location: OR Urgency: elective Indications for airway management: anesthesia Difficult airway: no Staff: Placed by: FAMILY LAW PARALEGAL: Jennifer Sierra CRNA Emergent airway documentation: Risks [...] tongue, teeth same condition as baseline. Result [facility] Carmelo Fan MD ANESTHESIA ORDERABLES Final Result * POCT hCG, urine (07/25/2024 8:18 AM NEUROLOGY TECHNOLOGIST) HCG, ur, POC Negative Negative Lot Number [id number] Urine 07/25/2024 8:18 AM NEUROLOGY TECHNOLOGIST Result [facility] Provider LAB POCT ORDERABLES - DEV ICE Final Result * POCT cotinine (07/25/2024 8:17 AM NEUROLOGY TECHNOLOGIST) Cotinine, POC Negative Lot Number [id number] QC Negative Control Acceptable QC Positive Control Acceptable Urine 07/25/2024 8:17 AM NEUROLOGY TECHNOLOGIST us Historical Provider POINT OF CARE TEST ORDERA BLES Final Result * NM Lymphoscintigraphy (Breast) Left (07/25/2024 7:57 AM NEUROLOGY TECHNOLOGIST) Anatomical Region Laterality Modality Breast N/A Nuclear Medicine 07/25/2024 8:58 AM NEUROLOGY TECHNOLOGIST Impressions 07/25/2024 10:01 AM NEUROLOGY TECHNOLOGIST No sentinel nodes identified at one hour post injection. Dictated by: Roxanne Worley M.D. The radiology attending physician has personally reviewed this study, and had reviewed and/or edited this written report and agrees with it. Electronically signed by: George Gibson MD, Ph.D Narrative 07/25/2024 10:01 AM NEUROLOGY TECHNOLOGIST EXAMINATION: BREAST LYMPHOSCINTIGRAPHY DATE OF STUDY: 07/25/2024 [...] George Gibson MD, Ph.D Davida Devlin MD [facility] Final Result * Yann Post Clip Placement Left (07/18/2024 9:09 AM NEUROLOGY TECHNOLOGIST) Anatomical Region Laterality Modality Breast Left Mammography 07/18/2024 11:3 5 AM NEUROLOGY TECHNOLOGIST Impressions 07/18/2024 11:35 AM NEUROLOGY TECHNOLOGIST Successful ultrasound-guided magnetic seed localization of the area of interest within the LEFT axilla. Dictated by: Chidi Hernandez M.D. The radiology attending physician has personally reviewed this study, and had reviewed and/or edited this written report and agrees with it. Electronically signed by: Chey Wagner M.D. Narrative 07/18/2024 11:35 AM NEUROLOGY TECHNOLOGIST EXAMINATION: LEFT AXILLA MAGSEED LOCALIZATION UTILIZING ULTRASOUND GUIDANCE; LEFT FULL FIELD DIGITAL MAMMOGRAM WITH DIGITAL BREAST TOMOSYNTHESIS HISTORY: 28 year old female with T2N1 left breast invasive ductal carcinoma with dionisio metastasis (ER,WA+, HER-2 -). She is status post adriamycin/cytoxan, [...] entire procedure. Dr. Chidi Hernandez MD (diagnostic vice president compliance) also participated in this examination. Procedure Note Chey Wagner MD - 07/18/2024 EXAMINATION: LEFT AXILLA MAGSEED LOCALIZATION UTILIZING ULTRASOUND GUIDANCE; LEFT FULL FIELD DIGITAL MAMMOGRAM WITH DIGITAL BREAST TOMOSYNTHESIS HISTORY: 28 year old female with T2N1 left breast invasive ductal carcinoma with dionisio metastasis (ER,WA+, HER-2 -). She is status post adriamycin/cytoxan, [...] entire procedure. Dr. Chidi Hernandez MD (diagnostic vice president compliance) also participated in this examination. IMPRESSION: Successful [...] Axillary Magseed Placement Left (07/18/2024 9:01 AM NEUROLOGY TECHNOLOGIST) Anatomical Region Laterality Modality Left Ultrasound 07/18/2024 9:41 AM NEUROLOGY TECHNOLOGIST Impressions 07/18/2024 11:35 AM NEUROLOGY TECHNOLOGIST Successful ultrasound-guided magnetic seed localization of the area of interest within the LEFT axilla. Dictated by: Chidi Hernandez M.D. The radiology attending physician has personally reviewed this study, and had reviewed and/or edited this written report and agrees with it. Electronically signed by: Chey Wagner M.D. Narrative 07/18/2024 11:35 AM NEUROLOGY TECHNOLOGIST EXAMINATION: LEFT AXILLA MAGSEED LOCALIZATION UTILIZING ULTRASOUND GUIDANCE; LEFT FULL FIELD DIGITAL MAMMOGRAM WITH DIGITAL BREAST TOMOSYNTHESIS HISTORY: 28 year old female with T2N1 left breast invasive ductal carcinoma with dionisio metastasis (ER,WA+, HER-2 -). She is status post adriamycin/cytoxan, [...] entire procedure. Dr. Chidi Hernandez MD (diagnostic vice president compliance) also participated in this examination. Procedure Note Chey Wagner MD - 07/18/2024 EXAMINATION: LEFT AXILLA MAGSEED LOCALIZATION UTILIZING ULTRASOUND GUIDANCE; LEFT FULL FIELD DIGITAL MAMMOGRAM WITH DIGITAL BREAST TOMOSYNTHESIS HISTORY: 28 year old female with T2N1 left breast invasive ductal carcinoma with dionisio metastasis (ER,WA+, HER-2 -). She is status post adriamycin/cytoxan, [...] entire procedure. Dr. Chidi Hernandez MD (diagnostic vice president compliance) also participated in this examination. IMPRESSION: Successful ultrasound-guided magnetic seed localization of the area of interest within the LEFT axilla. Dictated by: Chidi Hernandez M.D. The radiology attending physician has personally reviewed this study, and had reviewed and/or edited this written report and agrees with it. Electronically signed by: Chey Wagner M.D. Davida Devlin MD IMG US PROCEDURES Final Result * US Axillary Breast Left (06/28/2024 12:23 PM NEUROLOGY TECHNOLOGIST) Anatomical Region Laterality Modality Upper Extremities Left Ultrasound 06/28/2024 12:3 5 PM NEUROLOGY TECHNOLOGIST Impressions 06/28/2024 12:35 PM NEUROLOGY TECHNOLOGIST Good treatment response with normal appearance to LEFT axillary lymph nodes. Biopsy marker remains visible OVERALL FINAL ASSESSMENT: BI-RADS Category 6: Known Biopsy-Proven Malignancy. RECOMMENDATION: Continued clinical and oncologic management of known malignancy. Electronically signed by: Nargis Doherty M.D. Narrative 06/28/2024 12:35 PM NEUROLOGY TECHNOLOGIST EXAMINATION: LEFT AXILLARY ULTRASOUND HISTORY: 28-year-old female status post neoadjuvant chemotherapy for LEFT breast cancer and metastatic disease to the LEFT axilla. She plans for treatment with LEFT mastectomy. COMPARISON: Prior ultrasounds on 03/23/2024 and 11/27/2023 TECHNIQUE: Directed ultrasound evaluation of the LEFT axilla was performed by a trained orthodontist vice president and by . ULTRASOUND FINDINGS: Sonography within [...] LEFT axilla was performed by a trained orthodontist vice president and by . ULTRASOUND FINDINGS: Sonography within [...] malignancy. Electronically signed by: Nargis Doherty M.D. us Davida Devlin MD IMG US PROCEDURES Final Result from Last 3 Months Insurance [facility] [place] [address] [facility] CHO[facility] PLUS [facility] CHO[facility] PLUS Care Teams Grief Counselor Relationship Specialty Start Date End Date Torri Wiseman NP [address] [place] [address] [address] PCP - General Obstetrics and Gynecology 12/07/23 Alexa Ervin MD [facility] [address] [place] [address] Medical Oncologist/Tree Specialist Medical Oncology 12/15/23
--- OUTSIDE RECORDS SUMMARY | 2024-09-16 22:08 | XMS_ITS | Encounter Summary ---
Author Organization [facility] Address [address] [place] [address] Phone Care Team Providers Care Account Installation Specialist Name Role Phone Torri Wiseman NP Primary Care Provider [phone] Alexa Ervin MD Unavailable [phone] Encounter Details Date Type Department Care Team (Late st Contact Info) Description 09/15/2024 Orders Only [facility] Oncology [address] [facility] [address] [place] [address] Jillian Joseph RN Social History Tobacco Use Types Packs/Day Years Used Date Smoking Tobacco: Never Passive Smoke Exposure: Never Smokeless Tobacco: Never AUDIT-C Answer Date Recorded Q1: How often [...] on file Legal Sex Female 8:57 AM BREASTFEEDING PROGRAM COORDINATOR Gender Identity Female 07/25/2021 2:27 PM BREASTFEEDING PROGRAM COORDINATOR Sexual Orientation Straight 07/25/2021 2: 27 PM BREASTFEEDING PROGRAM COORDINATOR documented as of this encounter Plan of Treatment Not on file documented as of this encounter Visit Diagnoses Not on filedocumented in this encounter Care Teams Account Installation Specialist Relationship Specialty Start Date End Date Torri Wiseman VISUAL EDUCATION TEACHER [address] [place] [address] [address] PCP - General Obstetrics and Gynecology 12/07/23 Alexa Ervin MD [address] [place] [address] Medical Oncologist/Mold Yarn Supervisor Medical Oncology 12/15/23 documented as of this encounter
--- OUTSIDE RECORDS SUMMARY | 2024-09-16 22:08 | XMS_ITS | Encounter Summary ---
Author Organization [facility] Address [address] [place] [address] Care Team Providers Care Silk Screen Printing Racker Name Role Phone Torri Wiseman NP Primary Care Provider [phone] Alexa Ervin MD Unavailable [phone] Reason for Visit * Reason Comments Injections Zoladex * Episode Based Medications (Routine) - Authorized Specialty Diagnoses / Procedures Referred By Haim silver Referred To Contact Diagnoses Malignant neoplasm of upper-inner quadrant of left breast in female, estrogen receptor positive (HCC) Alexa Ervin MD [address] [facility] [address] [place] [address] Phone: tel: fax: [facility] 7th [place] [address] Phone: tel: Referral ID Status Reason Start Date Expiration Date V isits Requested Visits Authorized [id number] Authorized 12/21/2023 12/20/2024 40 40 Encounter Details Date Type Department Care Team (Late st Contact Info) Description 09/15/2024 12:00 PM CDT Infusion [facility] - Infusion [address] [facility] [address] [place] [address] Malignant neoplasm of upper-inner quadrant of left breast in female, estrogen receptor positive (HCC) (Primary Dx) Social History Tobacco Use Types Packs/Day Years [...] on file Legal Sex Female 8:57 AM WIRE SPLICER Gender Identity Female 07/25/2021 2:27 PM WIRE SPLICER Sexual Orientation Straight 07/25/2021 2: 27 PM WIRE SPLICER documented as of this encounter Last Filed Vital Signs Vital Sign Reading [...] oz) 09/15/2024 12:45 P M CDT Height - - Body Mass Index 34.52 09/13/2024 9:45 AM CDT documented in this encounter Nursing Notes * Daisy Hernandez, LOLLY - 09/15/2024 12:00 PM CDT Oncology Nursing Note [facility] [place] - INFUSION Cecy Joyce is a 29 y.o. female who presents for the following injection: Zoladex. Nursing Assessment Encounter Vitals BP: 119/76 (09/15/2024 12:45 PM) Pulse: 86 (09/15/2024 12:45 PM) Resp: 18 (09/15/2024 12:45 PM) Temp: 36.3 ??C (97.3 ??F) (09/15/2024 12:45 PM) Temp src: Oral (09/15/2024 12:45 PM) SpO2: 95 % (09/15/2024 12:45 PM) Weight: 97 kg (213 lb 13.5 oz) (09/15/2024 12:45 PM) Patient: met treatment parameters Cecy Joyce tolerated injection well Discharge Plan Discharge instructions given to patient. Discharge Mode: Ambulatory Accompanied by: Self Discharged To: Home documented in this encounter Plan of Treatment Not on file documented as of this encounter Visit Diagnoses Diagnosis Malignant neoplasm of upper-inner quadrant of left breast in female, estrogen receptor positive (HCC)- Primary documented in this encounter Administered Medications Inactive Administered Medications - up to 3 most recent administrations Medication Order MAR Action Action Date Dose Rate Site goserelin (ZOLADEX) injection 3.6 mg 3.6 mg, subcutaneous, Once, On [facility] 09/15/24 at 1345, For 1 dose, For subcutaneous use only. This is an implant, do NOT attempt to eliminate air bubbles prior to injection (may displace implant).Indications:Osiris gnant neoplasm of upper-inner quadrant of left breast in female, estrogen receptor positive (HCC) Given 09/15/2024 1:23 PM CDT 3.6 mg Right Lower Abdomen lidocaine (PF) (XYLOCAINE) 10 mg/mL (1 %) preservative free injection 5 mg 5 mg, subcutaneous, Once, On [facility] 09/15/24 at 1345, For 1 dose, Inject site with 0.5 mL subq before administering Goserelin (Zoladex)Indications:Osiris gnant neoplasm of upper-inner quadrant of left breast in female, estrogen receptor positive (HCC) Given 09/15/2024 1:23 PM CDT 5 mg Right Lower Abdomen documented in this encounter Orders Appointment Requests Count Last Ordered Date Fi rst Ordered Date ONCBCN INJECTION APPOINTMENT REQUEST 1 08/24 documented in this encounter Care Teams Silk Screen Printing Racker Relationship Specialty Start Date End Date Torri Wiseman [employer] [address] [place] [address] [address] [place] [address] [place] [address] PCP - General Obstetrics and Gynecology 12/07/23 Alexa Ervin MD [address] [place] [address] Medical Oncologist/Travel Guide Medical Oncology 12/15/23 documented as of this encounter
--- OUTSIDE RECORDS SUMMARY | 2024-09-16 22:08 | XMS_ITS | Encounter Summary ---
Author Organization [facility] Address [address] [place] [address] Care Team Providers Care Guidance Services Coordinator Name Role Phone Valeria Franklin Primary Care Provider [phone] Encounter Details Date Type Department Care Team (Late st Contact Info) Description 08/05/2024 Root Orange Message Enc [facility] [place] [address] [facility] [place], [place] [id number] Josh Gomes, GEORGINA [address] [place] [address] Wrist Issues Continuing Social History Tobacco Use Types Packs/Day Years Used Date Smoking Tobacco: Never Smokeless Tobacco: Never Alcohol Use Standard Drinks/Week Comments Yes 0 (1 standard drink = 0.6 oz pure alcohol) 3 seltzers or beers on one evening every other week PHQ-2 Answer Date Recorded Patient Health Questionnaire-2 Score 0 06/10/2024 Comments No Sex and Gender Information Value Date Recorded Sex Assigned at Female 06/10/2024 10:11 AM GROUND CREWMAN Legal Sex Female 11:11 AM CDT Gender Identity Female 06/10/2024 10:11 AM GROUND CREWMAN Sexual Orientation Not on file documented as of this encounter Plan of Treatment Not on file documented as of this encounter Visit Diagnoses Not on filedocumented in this encounter Additional Health Concerns Assessment Noted Time PHQ-9 Depression Total Score: 5 06/28/19 22 11:14 AM GROUND CREWMAN documented as of this encounter Care Teams Guidance Services Coordinator Relationship Specialty Start Date End Date Valeria Franklin APNP [address] [place], [place] [id number] PCP - General NURSE PRACTITIONER 02/09/20 documented as of this encounter
--- OUTSIDE RECORDS SUMMARY | 2024-09-16 22:08 | XMS_ITS | Encounter Summary ---
Author Organization [facility] Address [address] [place] [address] Phone Care Team Providers Care Network/Telecom Engineer Name Role Phone Torri Wiseman NP Primary Care Provider [phone] Alexa Ervin MD Unavailable [phone] Encounter Details Date Type Department Care Team (Late st Contact Info) Description 08/01/2024 Results Follow-Up [facility] Surgery [address] [facility] Floor [address] [place] [address] Davida Devlin MD [facility] [address] [address] Social History Tobacco Use Types Packs/Day Years Used Date Smoking Tobacco: Never Smokeless Tobacco: Never AUDIT-C Answer Date Recorded Q1: How often do you have a drink containing alcohol? Never 06/29/2024 Q2: How many drinks containi ng alcohol do you have on a typical day when you are drinking? Patient does not drink Q3: How often do you have si x or more drinks on one occasion? Never 06/29/2024 PHQ-2 Answer Date Recorded PHQ-2 Total Score (If total score is 3 or more points, staff should administer the PHQ-9) 0 11/25/2023 Personal Safety Answer Date Recorded Have you ever been in or are you currently in a harmful physical or emotional relationship or is someone making you feel afraid or unsafe? Denies 07/25/2024 Comments No Sex and Gender Information Value Date Recorded Sex Assigned at Not on file Legal Sex Female 8:57 AM KNITTED GOODS SHAPER Gender Identity Female 07/25/2021 2:27 PM KNITTED GOODS SHAPER Sexual Orientation Straight 07/25/2021 2: 27 PM KNITTED GOODS SHAPER documented as of this encounter Plan of Treatment Not on file documented as of this encounter Visit Diagnoses Not on filedocumented in this encounter Care Teams Network/Telecom Engineer Relationship Specialty Start Date End Date Torri Wiseman NP [address] [place] [address] [address] PCP - General Obstetrics and Gynecology 12/07/23 Alexa Ervin MD [address] [place] [address] Medical Oncologist/Marble Cutter Medical Oncology 12/15/23 documented as of this encounter
--- OUTSIDE RECORDS SUMMARY | 2024-09-16 22:08 | XMS_ITS | Clinical Summary ---
Author Organization [facility] Address [address] [place] [address] Care Team Providers Care Kelly Machine Operator Name Role Phone Valeria Franklin Primary Care Provider Allergies No known active allergies Medications acetaminophen (TYLENOL) 500 MG tablet Take 2 tablets (1,000 mg total) by mouth every 6 (six) hours as needed. Active buPROPion XL (WELLBUTRIN XL) 300 MG 24 hr tabletIndications: Anxiety,Recurrent major depressive disorder, in partial remission Take 1 tablet (300 mg total) by mouth daily. 90 tablet 3 06/10/19 25 Active escitalopram (LEXAPRO) 10 MG tabletIndications: Anxiety Take 1 tablet (10 mg total) by mouth daily. 90 tablet 3 06/10/19 25 Active letrozole (FEMARA) 2.5 MG tablet Take 1 tablet by mouth daily. 08/12/19 25 026 Active celecoxib (CELEBREX) 200 MG capsule Take 1 capsule the evening before surgery, then 1 capsule two times daily for 7 days. 09/09/19 25 Active cyclobenzaprine (FLEXERIL) 10 MG tablet Take one tablet up to 3 times per day as needed for muscle spasms. 09/09/19 25 Active Docusate Sodium (DSS) 100 MG Cap Take 100 mg by mouth 3 (three) times daily. 09/09/19 25 Active ondansetron (ZOFRAN-ODT) 4 MG disintegrating tablet Dissolve one tablet under the tongue at bedtime the evening before surgery. 09/09/19 Active loratadine (CLARITIN) 10 MG tablet Take 1 tablet (10 mg total) by mouth daily. Discontinu ed(Error) PACLitaxel (TAXOL IV) Discontinu ed(Error) traMADol (ULTRAM) 50 MG tabletIndications: Acute Pain < 7 Day Supply Take 1 tablet (50 mg total) by mouth every 6 (six) hours as needed for Pain. Indications: Acute Pain < 7 Day Supply 20 tablet 09/03/19 Discontinu ed(Therapy completed) pregabalin (LYRICA) 75 MG capsule Take 1 capsule (75 mg total) by mouth 2 (two) times daily. 09/09/19 Active Problems Problem Noted Date Diagnosed Date De Quervain's tenosynovitis, right 08/17/2024 History of breast reconstruction 08/11/2024 Decreased cardiac ejection fraction 12/30/2023 Encounter for monitoring cardiotoxic drug therap y 12/30/2023 Malignant neoplasm of upper- inner quadrant of left breast in female, estrogen receptor positive ([facility]) 12/14/2023 Anxiety 02/03/2020 Resolved Problems Problem Noted Date Diagnosed Date Resolved Date New daily persistent headache 03/14/2020 09/10/2021 Morning headache 03/14/2020 09/10/2021 Depression 02/03/2020 02/03/2020 Acne 11/16/2013 09/10/2021 Encounters Date Type Department Care Team Description 09/09/2024 9:00 AM CDT Office Visit [facility] - [place] [address] [place] [address] Josh Gomes CONCRETE PRODUCTS MACHINE OPERATOR Postop Followup (post op right deq sx 09/02/24) 09/09/2024 Travel 09/02/2024 8:00 AM CDT - 09/02/2024 8:58 AM CDT Surgery [facility] [place] [address] Santosh Chang MD right De quervains open compartment release 09/02/2024 8:00 AM CDT Anesthesia Event [facility] [address] Rebecca Golden MD Jarvis, Brittany L, DEJAN 09/02/2024 5:27 AM CDT - 09/02/2024 9:50 AM CDT Hospital Encounter [facility] [address] Santosh Chang MD Discharge Disposition: Home or Self Care (Routine Discharge) 09/02/2024 Travel 08/25/2024 Travel 08/17/2024 Prep for Procedure [facility] [place] [address] [place] [address] Santosh Chang MD 08/16/2024 9:40 AM CDT Office Visit [facility] [place] [address] [place] [address] Josh Gomes NP Follow Up (Right DeQuervain ) 08/16/2024 Travel 08/08/2024 Telephone [facility] [place] [address] [place] [address] Josh Gomes NP Follow Up Call 08/05/2024 MyChart Message Enc [facility] [place] [address] [place] [address] Josh Gomes NP Wrist Issues Continuing 07/20/2024 8:00 AM WINE MANAGER Office Visit [facility] [place] [address] [place] [address] Josh Gomes NP New Patient (Right DeQuervain) 07/20/2024 Telephone [facility] [place] [address] [place] [address] Josh Gomes NP Information 07/20/2024 Travel 06/29/2024 Telephone [facility] Family [facility] Internal Medicine [address] [address] Valeria Franklin APNP Information from Last 3 Months Immunizations Immunization Administration Dates Next Due Fluzone 6 Months+ Quad (0.5 mL Prefilled Syringe) 02/03/2020 HPV GARDASIL 9-VALENT 05/15/2016,11/13/2015 Influenza Adult (Generic) 05/03/2021,02/03/2018, 07/06/2017 Meningcoccal Group B (Trumen ba)(aka Meningitis) 05/15/2016,11/13/2015 PFIZER COVID-19 (ORIGINAL FO RMULATION, PURPLE CAP) mRNA, LNP-S, PF, 30 MCG/0.3 ML DOSE 05/03/2021,08/24/2020,08/03/2020 Tdap (Historical Only-select from magnify glass) 02/03/2020 Family History Medical History Relation Comments No Known Problems Father tobaco abuse Maternal Grandfather Alzheimers Maternal Grandmother Breast Cancer Maternal Grandmother skin cancer Maternal Grandmother Anxiety Mother Diabetes Mother gerd Mother Alcohol Abuse Paternal Aunt Multiple Sclerosis Paternal Grandfather Breast Cancer Paternal Grandmother Asthma Sister Relation Status Comments Father Alive Maternal Grandfather Maternal Grandmother Alive Mother Alive Paternal Aunt Alive Paternal Grandfather Alive Paternal Grandmother Alive Sister Alive Social History Tobacco Use Types Packs/Day Years Used Date Smoking Tobacco: Never Smokeless Tobacco: Never Tobacco Cessation:Counseling Given: No Alcohol Use Standard Drinks/Week Comments Yes 0 (1 standard drink = 0.6 oz pure alcohol) 3 seltzers or beers on one evening every other week PHQ-2 Answer Date Recorded Patient Health Questionnaire-2 Score 0 06/10/2024 Comments No Sex and Gender Information Value Date Recorded Sex Assigned at Female 06/10/2024 10:11 AM WINE MANAGER Legal Sex Female 11:11 AM CDT Gender Identity Female 06/10/2024 10:11 AM WINE MANAGER Sexual Orientation Not on file Last Filed Vital Signs Vital Sign Reading Time Taken Comments Blood Pressure 99/72 09/09/2024 9:10 AM CDT Pulse 88 09/09/2024 9:10 AM CDT Temperature 36.9 C (98.5 F) 09/09/2024 9:10 AM CDT Respiratory Rate 16 09/02/2024 9:40 AM CDT Oxygen Saturation 100% 09/02/2024 9:40 AM CDT Inhaled Oxygen Concentration - - Weight 95.3 kg (210 lb) 09/09/2024 9:10 AM CDT Height 170.2 cm (5' 7 ) 09/09/2024 9:10 AM CDT Body Mass Index 32.89 09/09/2024 9:10 AM CDT Plan of Treatment Health Maintenance Due Date Last Done Comments Cervical Cancer Screening Pap Smear (Age 21 to 29) Every 3 Years 1997 Hepatitis C 08/01/2015 Hepatitis B Vaccines (1 of 3 - 19+ 3-dose series) 2016 HPV Vaccines (3 - 3-dose series) 08/07/2016 05/15/2016, 11/13/2015 Annual Physical 12/27/2023 12/26/2022, 04/25, 02/03/2020 COVID-19 Vaccine ( season) 2024 04/03/2023, 05/03/2021, 08/24/2020, Additional history exists Cervical Cancer Screening 06/10/2025 Po stponed from 1997 (Going to Outside Clinic) DTaP, Tdap and Td Vaccines (2 - Td or Tdap) 02/02/2030 02/03/2020 Meningococcal B Vaccine Completed 05/15/2016, 11/12 PHQ-2 (Physician [place]) Completed 06/10/2024 Meningococcal Vaccine Aged Out No nataly violet eligible based on patient's age to complete this topic Pneumococcal Vaccine: Pediatrics (0 to 5 Years) and At-Risk Patients (6 to 49 Years) Aged Out No longer eligible based on patient's age to complete this topic RSV Immunizations Under 20 Months Aged Out No longer eligible based on patient's age to complete this topic Procedures Procedure Name Priority Date/Time Associated Diagnosis Comments INCIS TENDON SHEATH,RADIAL STYLOID 09/02/2024 8:00 AM CDT De Quervain's tenosynovitis, right Case Notes SCHED BY [facility] TEST URINE Routine 09/02/2024 6:53 AM CDT from Last 3 Months Results * TEST URINE (09/02/2024 6:53 AM CDT) URINE HCG TEST NEGATIVE NEGATIVE [facility] Comment:lot [id number] exp 2 Internal Control: VALID VALID [facility] URINE SPECIMEN OBTAINED BY CLEAN CATCH PROCEDURE / Unknown 09/02/2024 6:53 AM CDT us Santosh Chang MD URINE ORDERABLES Final Result [facility] [address] [place] [address], from Last 3 Months Insurance [place] [address] Care Teams Kelly Machine Operator Relationship Specialty Start Date End Date Valeria Franklin APNP [address] [place] [address] [phone] PCP - General NURSE PRACTITIONER 02/09/20
--- OUTSIDE RECORDS SUMMARY | 2024-09-16 22:08 | XMS_ITS | Clinical Summary ---
Author Organization [facility] Address [address] [facility] [place] [address] Care Team Providers Care Elocution Teacher Name Role Phone AngelaYura REAGAN-MAJOR GIFTS MANAGER Primary Care Provider [phone] [facility],non-owned Affiliates and Associated Physician Practices is amultiple site organization consisting of ambulatory clinics and hospital sitesin [place], [place], [place] and [place]. This disclosure is being madepursuant to the Care Everywhere program and may not contain all information available regarding this patient. Last updated 18.[facility] Allergies No known active allergies Medications * Be aware that medications may not be up to date on this document. Alwaysverify current medications with the patient. escitalopram (LEXAPRO) 20 MG tablet Take 20 mg by mouth once daily 0 Active levonorgestrel (MIRENA, 52 MG,) 20 MCG/24HR IUD Mirena 20 mcg/24 hours (6 yrs) 52 mg intrauterine device Take by intrauterine route. Active Immunizations Immunization Administration Dates Next Due INFLUENZA VACCINE, QUADR. (F LUZONE; FLULAVAL; FLUARIX; AFLURIA QUADRIVALENT; 6MO+), 0.5 ML (IIV4) 02/03/2018 Family History Relation Name Status Comments Father Alive Mother Alive Social History Tobacco Use Types Packs/Day Years Used Date Smoking Tobacco: Never Smokeless Tobacco: Never Comments No Sex and Gender Information Value Date Recorded Sex Assigned at Not on file Legal Sex Female 11:43 AM FABRIC FINISHER Gender Identity Not on file Sexual Orientation Not on file Last Filed Vital Signs Vital Sign Reading Time Taken Comments Blood Pressure 110/60 11/18/2020 12:05 PM CDT Pulse 91 11/18/2020 12:05 PM CDT Temperature 36.6 C (97.8 F) 11/18/2020 12:05 PM CDT Respiratory Rate 16 11/18/2020 12:05 PM CDT Oxygen Saturation 98% 11/18/2020 12:05 PM CDT Inhaled Oxygen Concentration - - Weight 81.6 kg (180 lb) 11/18/2020 12:05 PM CDT Height 168.9 cm (5' 6.5 ) 11/18/2020 12:05 PM CD T Body Mass Index 28.62 11/18/2020 12:05 PM CDT Plan of Treatment Health Maintenance Due Date Last Done Comments HIV SCREENING 2012 HEPATITIS C SCREENING 07/27/2015 DTAP/TDAP/TD VACCINES (1 - Tdap) 2016 HEPATITIS B VACCINE (1 of 3 - 19+ 3-dose series) 2016 COVID-19 VACCINE (3 - 2023-2 5 season) 2024 08/24/2020, 08/03/2020 DEPRESSION SCREENING 05/25/2024 INFLUENZA VACCINE (Season Ended) 2025 02/03/2020, 02/03/2018, 07/06/2017 ZOSTER VACCINE (1 of 2) 08/01/2047 HIB VACCINE Aged Out No longer eligi ble based on patient's age to complete this topic HPV VACCINE Aged Out No longer eligi ble based on patient's age to complete this topic MENINGOCOCCAL (Group B) VACCINE SHARED DECISION-MAKING Aged Out No longer eligible based on patient's age to complete this topic MENINGOCOCCAL GROUPS A/C/Y/W VACCINE Aged Out No longer eligible b ased on patient's age to complete this topic PNEUMOCOCCAL VACCINE Aged Out No long er eligible based on patient's age to complete this topic Insurance [facility] Member Subscriber Plan / Payer ( fective 2016-Present) Name:Cecy Santana Relation to Subscriber:Child Name:ARTI SANTANA Date of :1967 (Home) [facility] [place] [id number] Payer ID:[id number] (NAIC) Type:HMO Address: [place] [phone] [facility] Member Subscriber Plan / Payer ( fective 2020-Present) Name:Cecy Santana Member ID:Not on file Relation to Subscriber:Child Name:ARTI SANTANA Date of :1967 (Home) Address: [address] [place], [place] [address] [place] [address] Payer ID:[id number] (NAIC) Type:HMO Address: [place] [id number] Care Teams Elocution Teacher Relationship Specialty Start Date End Date Vale Miller APRN-CNP [address] [place] [address] PCP - General 11/22/20
--- OUTSIDE RECORDS SUMMARY | 2024-09-16 22:08 | XMS_ITS ---
Author Organization [facility] Address [address] [place] [address] Care Team Providers Care Tufting Supervisor Name Role Phone Torri Wiseman NP Primary Care Provider Alexa Ervin MD Unavailable [phone] Active Problems Problem Noted Date Diagnosed Date [...] from 12/07/2023:Stage IIB(cT2, cN1, cM0, G3, ER+, TX+, HER2-) - Signed by Rubens Prescott MD on 09/05/2024 Pathologic stage from 07/25/2024: ypT2, pN1a(sn), cM0, G2, ER+, TX+, HER2- - Unsigned Acne 11/16/2013 Current Treatment and Therapy Plans Goserelin 28 Day Cycles - Breast* Plan Start Date:12/28/2023 Plan Provider:Alexa Ervin MD Linked Problems Malignant neoplasm of upper- inner quadrant of left breast in female, estrogen receptor positive (HCC) Treatment Medications Current Day (Day 1 , Cycle 11 - Planned for 10/13/2024) Next Day (Day 1, Cycle 12 - Planned for 11/10/2024) goserelin (ZOLADEX) goserelin (ZOLADEX) injection 3.6 mg goserelin (ZOLADEX) injection 3.6 mg Hydration Therapy Plan & Alteplase (CATHFLO ACTIVASE) - orders for occluded catheters* Plan Start Date:01/28/2024 Plan Provider:Alexa Ervin MD Linked Problems Malignant neoplasm of upper- inner quadrant of left breast in female, estrogen receptor positive (HCC) Treatment Medications No medications scheduled. Past Treatment and Therapy Plans Oncology Chemotherapy Treatment Plan Name Start Date Discontinue Date Treatment Medications Discontinue Reason Plan Provider Cycles Dose-Dense AC: DOXOrubicin (ADRIAMYCIN) / Cyclophosphamide 14 Day Cycles followed by: weekly PACLItaxel 21 Day Cycles - Breast 01/14/20 24 06/18/2024 cycloPHOSphamide IVPB in 250 mL (vial 200 mg/mL)([id number])dexAM ETHasone (DECADRON)DOXOrubi familia (ADRIAMYCIN) 2 mg/mLPACLitaxel (TAXOL)PACLItaxel (TAXOL) IVPB in 250 mL Therapy Complete Alexa Ervin MD 8 of 8 cycles started Lifetime Dose Tracking * Chemical Lifetime Dose Automatic Entry Manual Entr y doxorubicin 238.206 mg/m2 (468 mg) 238.206 mg/m2 (468 mg) 0 mg/m2 (0 mg) Fluoro Time 0.017 minutes 0.017 minutes 0 minutes cyclophosphamide 2,402.424 mg/m2 (4,720 mg) 2,402.424 mg/m2 (4,720 mg) 0 mg/m2 (0 mg) doxorubicin isotoxic equivalent (Please manually verify calculation) 238.206 mg/m2 (468 mg) 238.206 mg/m2 (468 mg) 0 mg/m2 (0 mg) Air kerma at the reference point (Ka,r) 0.095 mGy 0.095 mGy 0 mGy DLP 946 mGycm 946 mGycm 0 mGycm
--- NOTE | 2024-09-16 22:14 | ECG_ITS ---
Test Date: 2024-09-16 23:10:16 Measurements Intervals [place] Rate: 93 P: 48 AK: 148 QRS: 17 QRSD: 90 T: 42 QT: 356 QTc: 443 Interpretive Statements SINUS RHYTHM LOW QRS VOLTAGE IN PRECORDIAL LEADS BORDERLINE ST-T WAVE ABNORMALITY- ANTERIOR LEADS BORDERLINE ECG Compared to ECG 01/08/2024 23:34:30 Low QRS voltage now present Electronically Signed On 09-17-2024 06:59:27 CDT by Sonu Crawford D.O.
[2024-09-16] MEDS: SODIUM CHLORIDE 0.9% IV 2,000 ML 999 ML IV CONT (22:28)
[2024-09-16 22:35] VITALS: O2SAT 98
[2024-09-16 22:38] LABS: Basophils Percent Auto 0.1 % (0.2-1.2); Eosinophils Percent Auto 0.3 % (0-4.4); Hematocrit 41.9 % (37.0-47.0); Hemoglobin 14.4 g/dL (12.0-15.0); Immature Granulocyte Absolute 0.02 K/mm3 (0.00-0.031); Immature Granulocyte Percent A 0.3 % (0-0.5); Lymphocytes Absolute Auto 0.43 K/mm3 (0.9-3.2); Lymphocytes Percent Auto 5.9 % (18.3-44.2); Mean Corpuscular HGB Conc 34.4 g/dl (32-36); Mean Corpuscular Volume 84.3 fl (80-100); Mean Platelet Volume 9.7 fl (7.4-10.4); Monocytes Absolute Auto 0.8 K/mm3 (0.1-0.6); Monocytes Percent Auto 10.9 % (2.6-8.5); Neutrophils Percent Auto 82.5 % (45.5-73.1); Platelet Count Result 185 k/mm3 (150-375); Red Blood Count 4.97 M/mm3 (4.2-5.4); Red Cell Distribution Width 11.6 % (11.5-14.5); White Blood Count 7.2 K/mm3 (4.5-10.0)
--- OUTSIDE RECORDS SUMMARY | 2024-09-16 22:41 | XMS_ITS | Clinical Summary ---
Author Organization [facility] Address [address] [place] [address] Care Team Providers Care Detective Bureau Chief Name Role Phone Valeria Franklin Primary Care Provider [phone] Allergies No known active allergies Medications acetaminophen [...] left breast in female, estrogen receptor positive ([facility]) 12/14/2023 Anxiety 02/03/2020 Resolved Problems Problem Noted Date Diagnosed Date Resolved Date New daily persistent headache 03/14/2020 09/10/2021 Morning headache 03/14/2020 09/10/2021 Depression 02/03/2020 02/03/2020 Acne 11/16/2013 09/10/2021 Encounters Date Type Department Care Team Description 09/09/2024 9:00 AM CDT Office Visit [facility] Orthopedic & Sports Medicine - [place] [address] [place] [address] Josh Gomes FINANCIAL MANAGEMENT CONSULTANT Postop Followup (post op right deq sx 09/02/24) 09/09/2024 Travel 09/02/2024 8:00 AM CDT - 09/02/2024 8:58 AM CDT Surgery [facility] [place] [address] Santosh Chang MD right De quervains open compartment release 09/02/2024 8:00 AM CDT Anesthesia Event [facility] [place] [address] Rebecca Golden MD Jarvis, Brittany L, DEJAN 09/02/2024 5:27 AM CDT - 09/02/2024 9:50 AM CDT Hospital Encounter [facility] Day [facility] [place] [address] Santosh Chang MD Discharge Disposition: Home or Self Care (Routine Discharge) 09/02/2024 Travel 08/25/2024 Travel 08/17/2024 Prep for Procedure [facility] Orthopedic & Sports Medicine - [place] [address] [place] [address] Santosh Chang MD 08/16/2024 9:40 AM CDT Office Visit [facility]opedic [facility] Sports Medicine - [place] [address] [place] [address] Josh Gomes NP Follow Up (Right DeQuervain ) 08/16/2024 Travel 08/08/2024 Telephone [facility] Medicine - [place] [address] [place] [address] Josh Gomes NP Follow Up Call 08/05/2024 MyChart Message Enc [facility] - [place] [address] [place] [address] Josh Gomes NP Wrist Issues Continuing 07/20/2024 8:00 AM CV RN Office Visit [facility] Sports Medicine - [place] [address] [place] [address] oJsh Gomes NP New Patient (Right DeQuervain) 07/20/2024 Telephone [facility] Orthopedic & Sports Medicine [place] [address] [place] [address] Josh Gomes NP Information 07/20/2024 Travel 06/29/2024 Telephone [facility] Family & Internal Medicine [address] [address] Valeria Franklin APNP Information from [...] Sex Assigned at Female 06/10/2024 10:11 AM CV RN Legal Sex Female 11:11 AM CDT Gender Identity Female 06/10/2024 10:11 AM CV RN Sexual Orientation Not on file Last Filed [...] B Vaccine Completed 05/15/2016, 11/12 PHQ-2 (Physician [place]) Completed 06/10/2024 Meningococcal Vaccine Aged Out No [...] AM CDT) URINE HCG TEST NEGATIVE NEGATIVE [facility] Comment:lot [id number] exp 2 Internal Control: VALID VALID [facility] URINE SPECIMEN OBTAINED BY CLEAN CATCH PROCEDURE / Unknown 09/02/2024 6:53 AM CDT us Santosh Chang MD URINE ORDERABLES Final Result [facility] [address] [place] [address], from Last 3 Months Insurance [facility] [place] [address] Care Teams Detective Bureau Chief Relationship Specialty Start Date End Date Valeria Franklin APNP [address] [place] [address] [phone] PCP - General NURSE PRACTITIONER 02/09/20
--- OUTSIDE RECORDS SUMMARY | 2024-09-16 22:41 | XMS_ITS | Continuity of Care Document ---
Author Organization [facility] Address [address] [place] [address] Phone Care Team Providers Care A P Supervisor Name Role Phone Flor Bansal OT Unavailable [...] Diagnoses Date Provider Providers Copied on Encounter [facility] [address] [facility], [place], [place], [id number], tel:[phone] Cardinal No Information Nimisha Ray. . Referring Provider: Josh Castellon [address] [place] [address], [address]. tel:[phone] Family History Family Member Type Diagnosis Age At Onset No Information Payers Payer name Insurance type Covered democrat ID Malina steel(s) [facility] CI [id number] Social History Type Description Quantity Date Captured [...]
--- OUTSIDE RECORDS SUMMARY | 2024-09-16 22:41 | XMS_ITS | Encounter Summary ---
Author Organization [facility] Address [address] [place] [address] Phone Care Team Providers Care Bundles Hanger Name Role Phone Torri Wiseman NP Primary Care Provider Alexa Ervin MD Unavailable [phone] Encounter Details Date Type Department Care Team (Late st Contact Info) Description 09/15/2024 Orders Only [facility] [address] [facility] [address] [place] [address] Jillian Joseph RN Social History [...] on file Legal Sex Female 8:57 AM STUDIO OPERATIONS MANAGER Gender Identity Female 07/25/2021 2:27 PM STUDIO OPERATIONS MANAGER Sexual Orientation Straight 07/25/2021 2: 27 PM STUDIO OPERATIONS MANAGER documented as of this encounter Plan of Treatment Not on file documented as of this encounter Visit Diagnoses Not on filedocumented in this encounter Care Teams Bundles Hanger Relationship Specialty Start Date End Date Torri Wiseman CIVIL CAD DESIGNER [address] [place] [address] [address] PCP - General Obstetrics and Gynecology 12/07/23 Alexa Ervin MD [address] [place] [address] Medical Oncologist/Paper Cap Machine Operator Medical Oncology 12/15/23 documented as of this encounter
--- OUTSIDE RECORDS SUMMARY | 2024-09-16 22:41 | XMS_ITS | Encounter Summary ---
Author Organization [facility] Address [address] [place] [address] Phone Care Team Providers Care Site Identification Specialist Name Role Phone Torri Wiseman NP Primary Care Provider [phone] Alexa Ervin MD Unavailable [phone] Encounter Details Date Type Department Care Team (Late st Contact Info) Description 08/01/2024 Results Follow-Up [facility] [address] [facility] [address] [place] [address] Davida Devlin MD [facility] [address] Social History Tobacco Use Types [...] on file Legal Sex Female 8:57 AM CIRCUIT BOARD INSPECTOR Gender Identity Female 07/25/2021 2:27 PM CIRCUIT BOARD INSPECTOR Sexual Orientation Straight 07/25/2021 2: 27 PM CIRCUIT BOARD INSPECTOR documented as of this encounter Plan of Treatment Not on file documented as of this encounter Visit Diagnoses Not on filedocumented in this encounter Care Teams Site Identification Specialist Relationship Specialty Start Date End Date Torri Wiseman NP [address] [place] [address] [address] PCP - General Obstetrics and Gynecology 12/07/23 Alexa Ervin MD [address] [place] [address] Medical Oncologist/Senior Corporate Accountant Medical Oncology 12/15/23 documented as of this encounter
--- OUTSIDE RECORDS SUMMARY | 2024-09-16 22:41 | XMS_ITS | Encounter Summary ---
Author Organization [facility] Address [address] [place] [id number] Care Team Providers Care Assemblyman Or Woman Name Role Phone Valeria Franklin Primary Care Provider [phone] Encounter Details Date Type Department Care Team (Late st Contact Info) Description 08/05/2024 [employer] Message Enc [facility] - [place] [address] [place], [place] [id number] Josh Gomes, GEORGINA [address] [place] [address] Wrist Issues Continuing Social History Tobacco Use [...] Sex Assigned at Female 06/10/2024 10:11 AM [employer]PORATE SALES TRAINER Legal Sex Female 11:11 AM CDT Gender Identity Female 06/10/2024 10:11 AM [employer]PORATE SALES TRAINER Sexual Orientation Not on file documented as of this encounter Plan of Treatment Not on file documented as of this encounter Visit Diagnoses Not on filedocumented in this encounter Additional Health Concerns Assessment Noted Time PHQ-9 Depression Total Score: 5 06/28/19 22 11:14 AM CORPORATE SALES TRAINER documented as of this encounter Care Teams Assemblyman Or Woman Relationship Specialty Start Date End Date Valeria Franklin APNP [address] [place], [place] [id number] PCP - General NURSE PRACTITIONER 02/09/20 documented as of this encounter
--- OUTSIDE RECORDS SUMMARY | 2024-09-16 22:41 | XMS_ITS | Referral Summary ---
Author Organization [facility] Address [address] [place] [id number] Care Team Providers Care Bilingual Instructor Name Role Phone Torri Wiseman NP Primary Care Provider Alexa Ervin MD Unavailable [phone] Encounters Date Type Department Care Team Description 09/15/2024 Orders Only [facility] Oncology [address] [facility] Floor 8 [place] [address] Jillian Joseph RN 09/15/2024 12:00 PM CDT Infusion [facility] Infusion [address] [facility] Floor 5 [place] [address] Malignant neoplasm of upper-inner quadrant of left breast in female, estrogen receptor positive (HCC) (Primary Dx) 09/13/2024 10:00 AM CDT - 09/13/2024 12:40 PM CDT Surgery [facility] Operating Room 2 [place] [address] Arabella Go MD EXCHANGE IMPLANT BREAST - BILATERAL 09/13/2024 12:01 PM CDT Anesthesia Event [facility] Operating Room 2 [place] [address] Patricia Duron MD McMillan, Brennan Michael, MD 09/13/2024 8:43 AM CDT - 09/13/2024 3:31 PM CDT Hospital Encounter [facility] Operating Room 2 [place] [address] Arabella Go MD History of breast reconstruction [Z98.890] (Primary Dx) Discharge Disposition: Discharge to home or self care 09/07/2024 1:00 PM CDT Office Visit [facility] Surgery [facility] [address] [place] [address] Arabella Go MD Malignant neoplasm of upper-inner quadrant of left breast in female, estrogen receptor positive (HCC) (Primary Dx) 09/06/2024 Telephone [facility] Advanced Medicine Radiation Oncology [address] [place] [address] Nay Newton RN 09/05/2024 10:30 AM CDT Consult [facility] Advanced Medicine Radiation Oncology [facility] [place] [address] Shabnam Romo MD PhD Malignant neoplasm of upper-inner quadrant of left breast in female, estrogen receptor positive (HCC) 09/01/2024 1:30 PM CDT Office Visit [facility] Surgery [address] [facility] [address] [place] [address] S/P breast reconstruction (Primary Dx) 08/24/2024 11:30 AM CDT Office Visit [facility] Surgery [address] [facility] [address] [place] [address] S/P breast reconstruction (Primary Dx) 08/19/2024 9:30 AM CDT Office Visit [facility] Cardiology [address] [facility] [address] [place] [address] Chidi Rowan MD Encounter for monitoring cardiotoxic drug therapy (Primary Dx); Malignant neoplasm of upper-inner quadrant of left breast in female, estrogen receptor positive (HCC); High risk medication use 08/18/2024 12:15 PM CDT Clinical Support [facility] - Infusion [address] [facility] Floor 5 [place] [address] Malignant neoplasm of upper-inner quadrant of left breast in female, estrogen receptor positive (HCC) 08/18/2024 12:00 PM CDT Infusion [facility] - Infusion [address] [facility] Floor 5 [place] [address] Malignant neoplasm of upper-inner quadrant of left breast in female, estrogen receptor positive (HCC) (Primary Dx) 08/17/2024 12:45 PM CDT Office Visit [facility] Surgery [address] [facility] [address] [place] [address] Arabella Go MD S/P breast reconstruction (Primary Dx); Malignant neoplasm of upper-inner quadrant of left breast in female, estrogen receptor positive (HCC) 08/16/2024 Telephone [facility] Oncology [address] [place] [address] 8 [place] [address] Alexa Ervin MD 08/15/2024 9:35 AM CDT Clinical Support [facility] Surgery [address] [place] [address] 8 [place] [address] Malignant neoplasm of upper-inner quadrant of left breast in female, estrogen receptor positive (HCC) (Primary Dx) 08/15/2024 Telephone [facility] Surgery [address] [place] [address] 8 [place] [address] Rachana Mendoza RN 08/15/2024 12:30 PM CDT Clinical Support [facility] Bone Health [address] [place] [address] Medical Office Building 2 [address] [place] [address] Post-menopausal (Primary Dx); Malignant neoplasm of upper-inner quadrant of left breast in female, estrogen receptor positive (HCC); FDC (current) use of aromatase inhibitors; Screening for osteoporosis; Androgen deprivation therapy; Osteopenia of lumbar spine 08/12/2024 Telephone [facility] Oncology [address] [place] [address] 8 [place] [address] Jermaine Cordoba MA 08/11/2024 3:20 PM CDT Office Visit [facility] Oncology [address] [place] [address] 8 [place] [address] Alexa Ervin MD FDC (current) use of aromatase inhibitors (Primary Dx); Malignant neoplasm of upper-inner quadrant of left breast in female, estrogen receptor positive (HCC) 08/09/2024 10:45 AM CDT Office Visit [facility] Surgery [facility] 8 [place] [address] Davida Devlin MD Malignant neoplasm of upper-inner quadrant of left breast in female, estrogen receptor positive (HCC) (Primary Dx) 08/02/2024 Telephone [facility] Medicine Radiation Oncology [facility] [place] [address] Shabnam Romo MD PhD 08/01/2024 Telephone [facility] Surgery [address] [place] [address] 8 [place] [address] Rachana Mendoza RN 08/01/2024 Orders Only [facility] Surgery [address] [place] [address] 8 [place] [address] Davida Devlin MD Malignant neoplasm of upper-inner quadrant of left breast in female, estrogen receptor positive (HCC) (Primary Dx) 08/01/2024 Results Follow-Up [facility] Surgery [address] [place] [address] 8 [place] [address] Davida Devlin MD 08/01/2024 1:30 PM CDT Office Visit [facility] Surgery [facility] [address] [place] [address] Malignant neoplasm of upper-inner quadrant of left breast in female, estrogen receptor positive (HCC) 07/29/2024 Telephone [facility] Surgery [address] [place] [address] [address] [place] [address] Arabella Go MD 07/26/2024 Orders Only [facility] Oncology [address] [place] [address] 8 [place] [address] Alexa Ervin MD 07/25/2024 7:57 AM CIRCUS SUPERVISOR - 07/25/2024 11:59 PM CIRCUS SUPERVISOR Hospital Encounter [facility] Imaging [address] [place] [address] Malignant neoplasm of upper-inner quadrant of left breast in female, estrogen receptor positive (HCC) Discharge Disposition: Discharge to home or self care 07/25/2024 6:32 AM CIRCUS SUPERVISOR - 07/25/2024 11:59 PM CIRCUS SUPERVISOR Hospital Encounter [facility] Imaging [address] [address] [place], [place] [address] Malignant neoplasm of upper-inner quadrant of left breast in female, estrogen receptor positive (HCC) Discharge Disposition: Discharge to home or self care 07/25/2024 9:15 AM CIRCUS SUPERVISOR - 07/25/2024 12:15 PM CIRCUS SUPERVISOR Surgery [facility] Operating Room [address] [place], [place] [address] Davida Devlin MD BILATERAL MASTECTOMY SIMPLE - skin sparing 07/25/2024 9:02 AM CIRCUS SUPERVISOR Anesthesia Event [facility] Operating Room [address] [place] [address] Carmelo Fan MD Heuvelman, Katherine Marie, NP 07/25/2024 6:35 AM CIRCUS SUPERVISOR - 07/25/2024 2:41 PM CIRCUS SUPERVISOR Hospital Encounter [facility] Operating Room [address] [place] [address] Davida Devlin MD Malignant neoplasm of left female breast, unspecified estrogen receptor status, unspecified site of breast (HCC) Discharge Disposition: Discharge to home or self care 07/21/2024 12:30 PM CIRCUS SUPERVISOR Infusion [facility] - Infusion [address] [facility] Floor 5 [place] [address] Malignant neoplasm of upper-inner quadrant of left breast in female, estrogen receptor positive (HCC) (Primary Dx) 07/18/2024 8:10 AM CIRCUS SUPERVISOR - 07/18/2024 11:59 PM CIRCUS SUPERVISOR Hospital Encounter [facility] [address] [facility] Floor 8 [place] [address] Malignant neoplasm of upper-inner quadrant of left breast in female, estrogen receptor positive (HCC) Discharge Disposition: Discharge to home or self care 07/18/2024 7:41 AM CIRCUS SUPERVISOR - 07/18/2024 11:59 PM CIRCUS SUPERVISOR Hospital Encounter [facility] Breast Imaging [facility] Floor 8 [place] [address] Malignant neoplasm of upper-inner quadrant of left breast in female, estrogen receptor positive (HCC) Discharge Disposition: Discharge to home or self care 07/12/2024 Telephone [facility] Oncology [address] [place] [address] Floor 8 [place] [address] Alexa Ervin MD 07/08/2024 Orders Only [facility] Surgery [address] [place] [address] Floor 8 [place] [address] Davida Devlin MD Malignant neoplasm of upper-inner quadrant of left breast in female, estrogen receptor positive (HCC) (Primary Dx) 07/05/2024 Telephone [facility] Cardiology [address] [place] [address] Medicine 8th [place] [address] [place] [address] Keara Benson 07/05/2024 Telephone [facility] [address] [facility] [address] [place] [address] Elsa Bishop Scheduling Appointments 06/28/2024 11:30 AM CIRCUS SUPERVISOR - 06/28/2024 11:59 PM CIRCUS SUPERVISOR Hospital Encounter [facility] [address] [place] [address] Floor 8 [place] [address] Malignant neoplasm of upper-inner quadrant of left breast in female, estrogen receptor positive (HCC) Discharge Disposition: Discharge to home or self care 06/28/2024 11:00 AM CIRCUS SUPERVISOR Office Visit [facility] Surgery [address] [place] [address] Floor 8 [place] [address] Davida Devlin MD Malignant neoplasm of upper-inner quadrant of left breast in female, estrogen receptor positive (HCC) (Primary Dx) 06/23/2024 12:00 PM CIRCUS SUPERVISOR Infusion [facility] Infusion [address] [place] [address] Floor 5 [place] [address] Malignant neoplasm of upper-inner quadrant of left [...] from 12/07/2023:Stage IIB(cT2, cN1, cM0, G3, ER+, DE+, HER2-) - Signed by Rubens Prescott MD on 09/05/2024 Pathologic stage from 07/25/2024: ypT2, pN1a(sn), cM0, G2, ER+, DE+, HER2- - Unsigned Acne 11/16/2013 Immunizations Immunization [...] on file Legal Sex Female 8:57 AM CIRCUS SUPERVISOR Gender Identity Female 07/25/2021 2:27 PM CIRCUS SUPERVISOR Sexual Orientation Straight 07/25/2021 2: 27 PM CIRCUS SUPERVISOR Last Filed Vital Signs Vital Sign Reading [...] on file Medical Devices Implanted Type Area Rim Turning Machine Operator Device Identifier Shelf Expiration Date Model / Serial / Lot [employer] Implant Mammary Smooth Mod High Profile Boost [place] [id number] - [id number] - [id number] Implanted:Qty: 1 on 09/13/2024 by Arabella Go MD at [facility] Breast Left: Breast [employer] Inc [id number] 03/06/2029 [id number] / [id number] / [id number] [employer] Implant Mammary Smooth Mod High Profile Boost 635cc [id number] - [id number] - [id number] Implanted:Qty: 1 on 09/13/2024 by Arabella Go MD at [facility] Breast Right: Breast [employer] [id number] 04/13/2029 [id number] / [id number] / Hologic [employer] Partnership Marker Biospy Site Top Hat Shape Senomark Bapmq-Npvgwb-3 s - [id number] Implanted:Qty: 1 on 12/07/2023 by Vladimir Moulton MD at [facility] Clip Left: Breast [employer] [id number] 04/14/2024 SMARK-DWAYNE ERO-2S / / [id number] [employer] Marker Tissue Deployment Device [id number] Dynex Vision [id number] - [id number] Implanted:Qty: 1 on 12/07/2023 by Vladimir Moulton MD at [facility] Clip Axilla [employer] [id number] 04/05/2028 [id number] / / [id number] [employer] Partnership Eviva 13cm Identifier Biopsy Site Gqmfm-Brtqw-70 - [id number] Implanted:Qty: 1 on 12/07/2023 by Vladimir Moulton MD at [facility] [employer] Partnership [id number] 07/27/2024 [facility] VA-13 / / [id number] [employer] Port Infus Power Isp Mri 1lum Powerport Clearvue Titanium 8fr [id number] - [id number] Implanted:Qty: 1 on 12/24/2023 at [facility] Right: Subclavian [employer] 02/21/2025 [id number] / / [id number] Dev[employer] Inc Marker Tissue Needle Delivery Spiral Capped Seed Radiopaque Shelter Stainless Steel Low Nickel Sentimag 74xhz1ek [id number] - [id number] Implanted:Qty: 1 on 07/18/2024 by Chey Wagner MD at [facility] Left: Axilla [employer] Inc [id number] 12/22/2025 [id number] / / [id number] Rti [employer] Inc Graft Tissue Dermis Accelular Cortiva 0.8 1.2mm [id number] Sterile Sx1193 - [id number] Implanted:Qty: 1 on 07/25/2024 at [facility] Left: Breast [employer] Inc 05/24/2027 [id number] / [id number] / [id number] [employer] Graft Tissue Dermis Accelular Cortiva 0.8 1.2mm 06q66vj Sterile Yz2122 - [id number] Implanted:Qty: 1 on 07/25/2024 at [facility] Right: Breast [employer] 05/24/2027 [id number] / [id number] / [id number] Explanted Type Area Rim Turning Machine Operator Device Identifier Shelf Expiration Date Model / Serial / Lot Home Memorygel Boost Resterilizable Gel Sizer Explanted:Qty: 1 on 09/13/2024 by Arabella Go MD at [facility] Breast Bilateral: Breast Other 05/12/2029 [id number] / [id number] Description:13.8CM/5.5CM [employer] Sizer Breast Mgel Smth Round Mod Hi Profile Boost 635cc Rpsb Hecfdd741g - [id number] - [id number] Explanted:Qty: 1 on 09/13/2024 by Arabella Go MD at [facility] Bilateral: Breast [employer] 05/04/2029 [id number] / [id number] Description:14.2CM/5.7CM [employer] Implant Mammary Natrelle Te Smooth 045v-Md-86-T With Fourte 296h-Vs-41-T - [id number] Implanted:Qty: 1 on 07/25/2024 at [facility] Explanted:Qty: 1 on 09/13/2024 by Arabella Go MD at [facility] Right: Breast [employer] Inc 06/20/2028 133S-MX-1 4-T / [id number] / [employer] Implant Mammary Natrelle Te Smooth 957h-Pc-47-T With Fourte 720g-Rz-46-T - [id number] Implanted:Qty: 1 on 07/25/2024 at [facility] Explanted:Qty: 1 on 09/13/2024 by Arabella Go MD at [facility] Left: Breast [employer] 06/06/2028 133S-MX-1 4-T / [id number] / Procedures Procedure Name Priority Date/Time Associated [...] breast in female, estrogen receptor positive (HCC) FDC (current) use of aromatase inhibitors RADIOLOGIC EXAMINATION OF SURGICAL SPECIMEN Schedule Routine, Read Routine (OP Routine) 07/25/2024 10:19 AM CIRCUS SUPERVISOR Malignant neoplasm of upper-inner quadrant of left breast in female, estrogen receptor positive (HCC) SURGICAL PATHOLOGY Routine 07/25/2024 9:44 AM CIRCUS SUPERVISOR Malignant neoplasm of left female breast, unspecified estrogen receptor status, unspecified site of breast (HCC) DE AN PROCEDURE PLACEHOLDER Routine 07/25/2024 9:37 AM CIRCUS SUPERVISOR DE AN ELECTIVE ENDOTRACHEAL AIRWAY Routine 07/25/2024 9:37 AM CIRCUS SUPERVISOR DE AN PROCEDURE PLACEHOLDER Routine 07/25/2024 9:37 AM CIRCUS SUPERVISOR DE AN ELECTIVE SUPRAGLOTTIC AIRWAY Routine 07/25/2024 9:37 AM CIRCUS SUPERVISOR INSERTION TISSUE SECTION FOREST FIRE WARDEN - BREAST 07/25/2024 9:01 AM CIRCUS SUPERVISOR Malignant neoplasm of left female breast, unspecified estrogen receptor status, unspecified site of breast (HCC) Special Needs navigator, blue dye, sentimag, magseed instruments REMOVAL MAG SEED 07/25/2024 9:01 AM CIRCUS SUPERVISOR Malignant neoplasm of left female breast, unspecified estrogen receptor status, unspecified site of breast (HCC) Special Needs navigator, blue dye, sentimag, magseed instruments BIOPSY SENTINEL LYMPH NODE WITH LYMPHOSCINTIGRAPHY 07/25/2024 9:01 AM CIRCUS SUPERVISOR Malignant neoplasm of left female breast, unspecified estrogen receptor status, unspecified site of breast (HCC) Special Needs navigator, blue dye, sentimag, magseed instruments MASTECTOMY SIMPLE 07/25/2024 9:01 AM CIRCUS SUPERVISOR Malignant neoplasm of left female breast, unspecified estrogen receptor status, unspecified site of breast (HCC) Special Needs navigator, blue dye, sentimag, magseed instruments POCT HCG, URINE Routine 07/25/2024 8:18 AM CIRCUS SUPERVISOR POCT COTININE Routine 07/25/2024 8:17 AM CIRCUS SUPERVISOR NM LYMPHOSCINTIGRAPHY (BREAST) LEFT Schedule Routine, Read Routine (OP Routine) 07/25/2024 7:57 AM CIRCUS SUPERVISOR Malignant neoplasm of upper-inner quadrant of left breast in female, estrogen receptor positive (HCC) YANN POST CLIP PLACEMENT LEFT Schedule Routine, Read Routine (OP Routine) 07/18/2024 9:09 AM CIRCUS SUPERVISOR Malignant neoplasm of upper-inner quadrant of left breast in female, estrogen receptor positive (HCC) US GUIDED AXILLARY MAGSEED PLACEMENT LEFT Schedule Routine, Read Routine (OP Routine) 07/18/2024 9:01 AM CIRCUS SUPERVISOR Malignant neoplasm of upper-inner quadrant of left breast in female, estrogen receptor positive (HCC) US AXILLARY LEFT Schedule Routine, Read Routine (OP Routine) 06/28/2024 12:23 PM CIRCUS SUPERVISOR Malignant neoplasm of upper-inner quadrant of left breast in female, estrogen receptor positive (HCC) from Last 3 Months Results * Cotinine, urine (09/13/2024 9:08 AM CDT) Cotinine, ur Negative Negative Urine 09/13/2024 9:08 AM CDT 09/13/2024 9:12 AM CDT us Arabella Go MD LAB URINE ORDERABLES Final Result [facility] Department [place] [address] * POCT hCG, urine (09/13/2024 8:30 AM [...] Bone mineral density was performed on a [employer] Discovery Densitometer. Based on machine cross-calibration and [...] by the International Society of Clinical Densitometry. [id number] us Alexa Ervin MD IMG DXA PROCEDURES Final R esult * Radiologic Examination of Surgical Specimen (07/25/2024 10:19 AM CIRCUS SUPERVISOR) Anatomical Region Laterality Modality Breast N/A Computed Radiogr aphy 07/25/2024 11:3 8 AM CIRCUS SUPERVISOR Impressions 07/25/2024 11:38 AM CIRCUS SUPERVISOR FINDINGS/IMPRESSION: A LEFT axilla surgical specimen was received from the operating room and was imaged using digital radiography. The lesion of interest, and magnetic seed are included within the surgical specimen. The biopsy marker is not present within the specimen. These findings were communicated to the surgeon. Electronically signed by: Jeronimo Chakraborty D.O. Narrative 07/25/2024 11:38 AM CIRCUS SUPERVISOR EXAMINATION: RADIOLOGIC EXAMINATION OF LEFT SURGICAL SPECIMEN [...] Result * Surgical pathology (07/25/2024 9:44 AM CIRCUS SUPERVISOR) Tissue specimen (specimen) (Breast, simple mastectomy) 07/25/2024 9:44 AM CIRCUS SUPERVISOR Comment:right breast stitch in axillary tail Tissue specimen (specimen) (Breast, simple mastectomy) 07/25/2024 10:07 AM CIRCUS SUPERVISOR Comment:left breast stitch i n axillary tail Tissue specimen (specimen) (Lymph node, sentinel breast) 07/25/2024 10:09 AM CIRCUS SUPERVISOR Comment:left sentinel lymph node Narrative PATHOLOGY [facility] - 08/01/2024 11:29 AM CDT EPIC results best viewed via link to PDF [facility] [place] [address] Note to Patients: This report may contain [...] Gender: F : 1995 (Age: 28) Address: [address] [place] [address] Hospital #: [id number] Taken:07/25/2024 Received:07/25/2024 Reported: 08/01/2024 Patient Type: C [...] prior biopsy site, slice 6, bisected A3 Billposting Supervisor lower inner quadrant, slice 4 A4 Billposting Supervisor lower inner quadrant, slice 5 A5 Billposting Supervisor upper inner quadrant, slice 6 A6 Billposting Supervisor upper inner quadrant, slice 5 A7 Billposting Supervisor lower outer quadrant, slice 10 A8 Billposting Supervisor lower outer quadrant, slice 8 A9 Billposting Supervisor upper outer quadrant, slice 10 A10 Billposting Supervisor upper outer quadrant, slice 12 A11 Nipple, [...] (including nipple-sparing and skin-sparing) Lymph node sampling: [place] lymph node(s) Specimen laterality: Left Tumor site [...] mm Extranodal extension: Present, greater than 2mm [place] node evaluation: H&E, multiple levels Response to presurgical therapy: In the breast: Probable or definite response to presurgical therapy In the lymph nodes: Probable or definite response to presurgical therapy in metastatic carcinoma MD [facility] [place]: Primary tumor bed: 40 x 40 mm [...] Breast Biomarker Testing performed on Previous Case: [id number] Estrogen Receptor (ER): Positive Guilherme score 8/8 [...] interpretation for this case was performed at [facility], Department of Surgical Pathology, [address] [facility], [place] [id number], [place] [address] CLIA # [id number] The performance characteristics of some immunohistochemical stains, fluorescence in-situ hybridization tests and immunophenotyping by flow cytometry cited in this report (if any) were determined by the Surgical Pathology and Flow Cytometry Departments at [facility] as part of an ongoing quality consultant program and in compliance with [...] Surgical Pathology and Flow Cytometry Departments of [facility]. It has not been cleared or approved by the U. S. Food and Drug Administration. IMAGES AND SCANNED DOCUMENTS, IF INCLUDED, ONLY VIEWABLE IN PDF VERSION OF REPORT us Davida Devlin MD LAB PATHOLOGY ORDERABLE S Final Result PATHOLOGY [facility] [phone] * DE AN ELECTIVE ENDOTRACHEAL AIRWAY, DE AN PROCEDURE PLACEHOLDER (07/25/2024 9:37 AM CIRCUS SUPERVISOR) Narrative Jennifer Sierra CRNA - 07/25/2024 9:37 AM CIRCUS SUPERVISOR Jennifer Sierra CRNA 07/25/2024 9:38 AM Airway Patient location: OR Urgency: elective Indications for airway management: anesthesia Difficult airway: no Staff: Placed by: WASTE REDUCTION COORDINATOR: Jennifer Sierra CRNA Emergent airway documentation: Risks [...] tongue, teeth same condition as baseline Result [facility] Carmelo Fan MD ANESTHESIA ORDERABLES Final Result * DE AN ELECTIVE SUPRAGLOTTIC AIRWAY, DE AN PROCEDURE PLACEHOLDER (07/25/2024 9:37 AM CIRCUS SUPERVISOR) Narrative Jennifer Sierra CRNA - 07/25/2024 9:37 AM CIRCUS SUPERVISOR Jennifer Sierra CRNA 07/25/2024 9:37 AM Airway Patient location: OR Urgency: elective Indications for airway management: anesthesia Difficult airway: no Staff: Placed by: WASTE REDUCTION COORDINATOR: Jennifer Sierra CRNA Emergent airway documentation: Risks [...] tongue, teeth same condition as baseline. Result [facility] Carmelo Fan MD ANESTHESIA ORDERABLES Final Result * POCT hCG, urine (07/25/2024 8:18 AM CIRCUS SUPERVISOR) HCG, ur, POC Negative Negative Lot Number [id number] Urine 07/25/2024 8:18 AM CIRCUS SUPERVISOR Result [facility] Provider LAB POCT ORDERABLES - DEV ICE Final Result * POCT cotinine (07/25/2024 8:17 AM CIRCUS SUPERVISOR) Cotinine, POC Negative Lot Number [id number] QC Negative Control Acceptable QC Positive Control Acceptable Urine 07/25/2024 8:17 AM CIRCUS SUPERVISOR us Historical Provider POINT OF CARE TEST ORDERA BLES Final Result * NM Lymphoscintigraphy (Breast) Left (07/25/2024 7:57 AM CIRCUS SUPERVISOR) Anatomical Region Laterality Modality Breast N/A Nuclear Medicine 07/25/2024 8:58 AM CIRCUS SUPERVISOR Impressions 07/25/2024 10:01 AM CIRCUS SUPERVISOR No sentinel nodes identified at one hour post injection. Dictated by: Roxanne Worley M.D. The radiology attending physician has personally reviewed this study, and had reviewed and/or edited this written report and agrees with it. Electronically signed by: George Gibson MD, Ph.D Narrative 07/25/2024 10:01 AM CIRCUS SUPERVISOR EXAMINATION: BREAST LYMPHOSCINTIGRAPHY DATE OF STUDY: 07/25/2024 [...] George Gibson MD, Ph.D Davida Devlin MD [facility] PROCEDURES Final Result * Yann Post Clip Placement Left (07/18/2024 9:09 AM CIRCUS SUPERVISOR) Anatomical Region Laterality Modality Breast Left Mammography 07/18/2024 11:3 5 AM CIRCUS SUPERVISOR Impressions 07/18/2024 11:35 AM CIRCUS SUPERVISOR Successful ultrasound-guided magnetic seed localization of the area of interest within the LEFT axilla. Dictated by: Chidi Hernandez M.D. The radiology attending physician has personally reviewed this study, and had reviewed and/or edited this written report and agrees with it. Electronically signed by: Chey Wagner M.D. 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 She is status post adriamycin/cytoxan, [...] entire procedure. Dr. Chidi Hernandez MD (diagnostic residential supervisor) also participated in this examination. 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 She is status post adriamycin/cytoxan, [...] entire procedure. Dr. Chidi Hernandez MD (diagnostic residential supervisor) also participated in this examination. IMPRESSION: Successful [...] Axillary Magseed Placement Left (07/18/2024 9:01 AM CIRCUS SUPERVISOR) Anatomical Region Laterality Modality Left Ultrasound 07/18/2024 9:41 AM CIRCUS SUPERVISOR Impressions 07/18/2024 11:35 AM CIRCUS SUPERVISOR Successful ultrasound-guided magnetic seed localization of the area of interest within the LEFT axilla. Dictated by: Chidi Hernandez M.D. The radiology attending physician has personally reviewed this study, and had reviewed and/or edited this written report and agrees with it. Electronically signed by: Chey Wagner M.D. 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 She is status post adriamycin/cytoxan, [...] entire procedure. Dr. Chidi Hernandez MD (diagnostic residential supervisor) also participated in this examination. 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 She is status post adriamycin/cytoxan, [...] entire procedure. Dr. Chidi Hernandez MD (diagnostic residential supervisor) also participated in this examination. IMPRESSION: Successful [...] US Axillary Breast Left (06/28/2024 12:23 PM CIRCUS SUPERVISOR) Anatomical Region Laterality Modality Upper Extremities Left Ultrasound 06/28/2024 12:3 5 PM CIRCUS SUPERVISOR Impressions 06/28/2024 12:35 PM CIRCUS SUPERVISOR Good treatment response with normal appearance to LEFT axillary lymph nodes. Biopsy marker remains visible OVERALL FINAL ASSESSMENT: BI-RADS Category 6: Known Biopsy-Proven Malignancy. RECOMMENDATION: Continued clinical and oncologic management of known malignancy. Electronically signed by: Nargis Doherty M.D. Narrative 06/28/2024 12:35 PM CIRCUS SUPERVISOR EXAMINATION: LEFT AXILLARY ULTRASOUND HISTORY: 28-year-old female status post neoadjuvant chemotherapy for LEFT breast cancer and metastatic disease to the LEFT axilla. She plans for treatment with LEFT mastectomy. COMPARISON: Prior ultrasounds on 03/23/2024 and 11/27/2023 TECHNIQUE: Directed ultrasound evaluation of the LEFT axilla was performed by a trained heading machine operator and by . ULTRASOUND FINDINGS: Sonography within [...] LEFT axilla was performed by a trained heading machine operator and by . ULTRASOUND FINDINGS: Sonography within [...] Electronically signed by: Nargis Doherty M.D. Davida eDvlin MD IMG US PROCEDURES Final Result from Last 3 Months Insurance [facility] CHOICE PLUS [facility] CHOICE PLUS [facility] CHOICE PLUS Care Teams Bilingual Instructor Relationship Specialty Start Date End Date Torri Wiseman NP [address] [place] [id number] PCP - General Obstetrics and Gynecology 12/07/23 Alexa Ervin MD [address] [place] [address] [address] [place] [address] Medical Oncologist/Prize Fighter Medical Oncology 12/15/23
--- OUTSIDE RECORDS SUMMARY | 2024-09-16 22:41 | XMS_ITS ---
Author Organization [facility] Address [address] [place] [id number] Care Team Providers Care Repulping Supervisor Name Role Phone Torri Wiseman NP Primary Care Provider Alexa Ervin MD Unavailable [phone] Active Problems Problem Noted Date Diagnosed Date [...] from 12/07/2023:Stage IIB(cT2, cN1, cM0, G3, ER+, OK+, HER2-) - Signed by Rubens Prescott MD on 09/05/2024 Pathologic stage from 07/25/2024: ypT2, pN1a(sn), cM0, G2, ER+, OK+, HER2- - Unsigned Acne 11/16/2013 Current Treatment [...]
--- OUTSIDE RECORDS SUMMARY | 2024-09-16 22:41 | XMS_ITS | Encounter Summary ---
Author Organization [facility] Address [address] [place] [address] Phone Care Team Providers Care Wrecking Supervisor Name Role Phone Torri Wiseman NP Primary Care Provider [phone] Alexa Ervin MD Unavailable [phone] Encounter Details Date Type Department Care Team [...] on file Legal Sex Female 8:57 AM TECHNICAL SOLUTIONS CONSULTANT Gender Identity Female 07/25/2021 2:27 PM TECHNICAL SOLUTIONS CONSULTANT Sexual Orientation Straight 07/25/2021 2: 27 PM TECHNICAL SOLUTIONS CONSULTANT documented as of this encounter Plan of [...] CDT Rhino/Enterovirus 03/21/2024 03/21/2024 03/28/2024 3:05 AM TECHNICAL SOLUTIONS CONSULTANT documented as of this encounter Care Teams Wrecking Supervisor Relationship Specialty Start Date End Date Torri Wiseman NP [address] [place] [address] [address] PCP - General Obstetrics and Gynecology 12/07/23 Alexa Ervin MD [address] [place] [address] Medical Oncologist/Dowel Pointer Medical Oncology 12/15/23 documented as of this encounter
--- OUTSIDE RECORDS SUMMARY | 2024-09-16 22:41 | XMS_ITS | Clinical Summary ---
Author Organization [facility] Address [address] [place] [id number] Care Team Providers Care Jack Spinner Name Role Phone Torri Wiseman NP Primary Care Provider Alexa Ervin MD Unavailable [phone] Allergies No known active allergies Medications escitalopram [...] from 12/07/2023:Stage IIB(cT2, cN1, cM0, G3, ER+, WY+, HER2-) - Signed by Rubens Prescott MD on 09/05/2024 Pathologic stage from 07/25/2024: ypT2, pN1a(sn), cM0, G2, ER+, WY+, HER2- - Unsigned Acne 11/16/2013 Encounters Date Type Department Care Team Description 09/15/2024 12:00 PM CDT Infusion [facility] - Infusion [address] [facility] Floor 5 [place] [address] Malignant neoplasm of upper-inner quadrant of left breast in female, estrogen receptor positive (HCC) (Primary Dx) 09/15/2024 Orders Only [facility] [address] [facility] 8 [place] [address] Jillian Joseph RN 09/13/2024 12:01 PM CDT Anesthesia Event [facility] Operating Room 2 [place] [address] Patricia Duron MD McMillan, Brennan Michael, MD 09/13/2024 10:00 AM CDT - 09/13/2024 12:40 PM CDT Surgery [facility] Operating Room 2 [place] [address] Arabella Go MD EXCHANGE IMPLANT BREAST - BILATERAL 09/13/2024 8:43 AM CDT - 09/13/2024 3:31 PM CDT Hospital Encounter [facility] Operating Room 2 [place] [address] Arabella Go MD History of breast reconstruction [Z98.890] (Primary Dx) Discharge Disposition: Discharge to home or self care 09/07/2024 1:00 PM CDT Office Visit [facility] Surgery [address] [place] [address] [address] [place] [address] Arabella Go MD Malignant neoplasm of upper-inner quadrant of left breast in female, estrogen receptor positive (HCC) (Primary Dx) 09/06/2024 Telephone [facility] Radiation Oncology [address] [place] [address] Nay Newton RN 09/05/2024 10:30 AM CDT Consult [facility] Radiation Oncology [address] [place] [phone] Shabnam Romo MD PhD Malignant neoplasm of upper-inner quadrant of left breast in female, estrogen receptor positive (HCC) 09/01/2024 1:30 PM CDT Office Visit [facility] Surgery [address] [place] [address] [address] [place] [address] S/P breast reconstruction (Primary Dx) 08/24/2024 11:30 AM CDT Office Visit [facility] Surgery [address] [place] [address] Road [address] [place] [address] S/P breast reconstruction (Primary Dx) 08/19/2024 9:30 AM CDT Office Visit [facility] Cardiology [address] [facility] [address] [place] [address] Chidi Rowan MD Encounter for monitoring cardiotoxic drug therapy (Primary Dx); Malignant neoplasm of upper-inner quadrant of left breast in female, estrogen receptor positive (HCC); High risk medication use 08/18/2024 12:15 PM CDT Clinical Support [facility] - Infusion [address] [facility] Floor 5 [place] [address] Malignant neoplasm of upper-inner quadrant of left breast in female, estrogen receptor positive (HCC) 08/18/2024 12:00 PM CDT Infusion [facility] - Infusion [address] [facility] Floor 5 [place] [address] Malignant neoplasm of upper-inner quadrant of left breast in female, estrogen receptor positive (HCC) (Primary Dx) 08/17/2024 12:45 PM CDT Office Visit [facility] Surgery [facility] [address] [place] [address] Arabella Go MD S/P breast reconstruction (Primary Dx); Malignant neoplasm of upper-inner quadrant of left breast in female, estrogen receptor positive (HCC) 08/16/2024 Telephone [facility] Oncology [address] [place] [address] Floor 8 [place] [address] Alexa Ervin MD 08/15/2024 12:30 PM CDT Clinical Support [facility] Bone Health 10 [facility] Medical Office Building 2 [address] [place] [phone] Post-menopausal (Primary Dx); Malignant neoplasm of upper-inner quadrant of left breast in female, estrogen receptor positive (HCC); FPC (current) use of aromatase inhibitors; Screening for osteoporosis; Androgen deprivation therapy; Osteopenia of lumbar spine 08/15/2024 9:35 AM CDT Clinical Support [facility] Surgery [address] [place] [address] Floor 8 [place] [phone] Malignant neoplasm of upper-inner quadrant of left breast in female, estrogen receptor positive (HCC) (Primary Dx) 08/15/2024 Telephone [facility] Surgery [address] [place] [phone] Rachana Mendoza RN 08/12/2024 Telephone [facility] Oncology [address] [place] [phone] Jermaine Cordoba MA 08/11/2024 3:20 PM CDT Office Visit [facility] Oncology [address] [place] [phone] Alexa Ervin MD FPC (current) use of aromatase inhibitors (Primary Dx); Malignant neoplasm of upper-inner quadrant of left breast in female, estrogen receptor positive (HCC) 08/09/2024 10:45 AM CDT Office Visit [facility] Surgery [address] [place] [phone] Davida Devlin MD Malignant neoplasm of upper-inner quadrant of left breast in female, estrogen receptor positive (HCC) (Primary Dx) 08/02/2024 Telephone [facility] Radiation Oncology [address] [place] [address] [place] [address] Shabnam Romo MD PhD 08/01/2024 1:30 PM CDT Office Visit [facility] Surgery [facility] [address] [place] [phone] Malignant neoplasm of upper-inner quadrant of left breast in female, estrogen receptor positive (HCC) 08/01/2024 Telephone [facility] Surgery [address] [place] [phone] Rachana Mendoza RN 08/01/2024 Orders Only [facility] Surgery [address] [place] [phone] Davida Devlin MD Malignant neoplasm of upper-inner quadrant of left breast in female, estrogen receptor positive (HCC) (Primary Dx) 08/01/2024 Results Follow-Up [facility] Surgery [address] [place] [address] 8 [place] [address] Davida Devlin MD 07/29/2024 Telephone [facility] Surgery [address] [facility] [address] [place] [address] Arabella Go MD 07/26/2024 Orders Only [facility] Oncology [address] [facility] Floor 8 [place] [phone] Alexa Ervin MD 07/25/2024 9:15 AM PRODUCT MARKETING MANAGER - 07/25/2024 12:15 PM PRODUCT MARKETING MANAGER Surgery [facility] Operating Room [address] [place], [place] [address] Davida Devlin MD BILATERAL MASTECTOMY SIMPLE - skin sparing 07/25/2024 9:02 AM PRODUCT MARKETING MANAGER Anesthesia Event [facility] Operating Room [address] [place] [place], [place] [address] Carmelo Fan MD Heuvelman, Katherine Marie, NP 07/25/2024 7:57 AM PRODUCT MARKETING MANAGER - 07/25/2024 11:59 PM PRODUCT MARKETING MANAGER Hospital Encounter [facility] Imaging [address] [place], [place] [address] Malignant neoplasm of upper-inner quadrant of left breast in female, estrogen receptor positive (HCC) Discharge Disposition: Discharge to home or self care 07/25/2024 6:35 AM PRODUCT MARKETING MANAGER - 07/25/2024 2:41 PM PRODUCT MARKETING MANAGER Hospital Encounter [facility] Operating Room [address] [place] [address] Davida Devlin MD Malignant neoplasm of left female breast, unspecified estrogen receptor status, unspecified site of breast (HCC) Discharge Disposition: Discharge to home or self care 07/25/2024 6:32 AM PRODUCT MARKETING MANAGER - 07/25/2024 11:59 PM PRODUCT MARKETING MANAGER Hospital Encounter [facility] Imaging [address] [place] [address] Malignant neoplasm of upper-inner quadrant of left breast in female, estrogen receptor positive (HCC) Discharge Disposition: Discharge to home or self care 07/21/2024 12:30 PM PRODUCT MARKETING MANAGER Infusion [facility] - Infusion [address] [facility] Floor 5 [place] [address] Malignant neoplasm of upper-inner quadrant of left breast in female, estrogen receptor positive (HCC) (Primary Dx) 07/18/2024 8:10 AM PRODUCT MARKETING MANAGER - 07/18/2024 11:59 PM PRODUCT MARKETING MANAGER Hospital Encounter [facility] - Breast Imaging [address] [facility] Floor 8 [place] [address] Malignant neoplasm of upper-inner quadrant of left breast in female, estrogen receptor positive (HCC) Discharge Disposition: Discharge to home or self care 07/18/2024 7:41 AM PRODUCT MARKETING MANAGER - 07/18/2024 11:59 PM PRODUCT MARKETING MANAGER Hospital Encounter [facility] - Breast Imaging [address] [facility] Floor 8 [place] [address] Malignant neoplasm of upper-inner quadrant of left breast in female, estrogen receptor positive (HCC) Discharge Disposition: Discharge to home or self care 07/12/2024 Telephone [facility] Oncology [address] [place] [address] Floor 8 [place] [address] Alexa Ervin MD 07/08/2024 Orders Only [facility] Surgery [facility] Floor 8 [place] [address] Davida Devlin MD Malignant neoplasm of upper-inner quadrant of left breast in female, estrogen receptor positive (HCC) (Primary Dx) 07/05/2024 Telephone [facility] Cardiology [address] [place] [address] Advanced Medicine 8th [place] [address] [place] [address] Keara Benson 07/05/2024 Telephone [facility] [address] [facility] [address] [place] [phone] Elsa Bishop Scheduling Appointments 06/28/2024 11:30 AM PRODUCT MARKETING MANAGER - 06/28/2024 11:59 PM PRODUCT MARKETING MANAGER Hospital Encounter [facility] - Breast Imaging [address] [facility] Floor 8 [place] [address] Malignant neoplasm of upper-inner quadrant of left breast in female, estrogen receptor positive (HCC) Discharge Disposition: Discharge to home or self care 06/28/2024 11:00 AM PRODUCT MARKETING MANAGER Office Visit [facility] Surgery [address] [facility] Floor 8 [place] [address] Davida Devlin MD Malignant neoplasm of upper-inner quadrant of left breast in female, estrogen receptor positive (HCC) (Primary Dx) 06/23/2024 12:00 PM PRODUCT MARKETING MANAGER Infusion [facility] - Infusion [address] [facility] Floor 5 [place] [address] Malignant neoplasm of upper-inner quadrant of left [...] LEFT 07/18/2024 Left MASTECTOMY 07/25/2024 Bilateral TISSUE EAP COUNSELOR PLACEMENT 07/25/2024 Bilateral DE QUERVAIN'S RELEASE Right [...] on file Legal Sex Female 8:57 AM PRODUCT MARKETING MANAGER Gender Identity Female 07/25/2021 2:27 PM PRODUCT MARKETING MANAGER Sexual Orientation Straight 07/25/2021 2: 27 PM PRODUCT MARKETING MANAGER Obstetrics History Para Term AB IAB SAB [...] 02/02/2030 02/03/2020 Medical Devices Implanted Type Area Public Transit Trolley Driver Device Identifier Shelf Expiration Date Model / Serial / Lot [employer] Implant Mammary Smooth Mod High Profile Boost 635cc [id number] - [id number] - [id number] Implanted:Qty: 1 on 09/13/2024 by Arabella Go MD at [facility] Breast Left: Breast [employer] [id number] 03/06/2029 [id number] / [id number] / [id number] [employer] Implant Mammary Smooth Mod High Profile Boost 635cc [id number] - [id number] - [id number] Implanted:Qty: 1 on 09/13/2024 by Arabella Go MD at [facility] Breast Right: Breast [employer] [id number] 04/13/2029 [id number] / [id number] / H[employer] Partnership Marker Biospy Site Top Hat Shape Senomark Hjwmo-Vixknq-3 s - [id number] Implanted:Qty: 1 on 12/07/2023 by Vladimir Moulton MD at [facility] Left: Breast [employer] [id number] 04/14/2024 SMARK-DWAYNE ERO-2S / / [id number] [employer] Marker Tissue Deployment Device [id number] Tumark Vision [id number] - [id number] Implanted:Qty: 1 on 12/07/2023 by Vladimir Moulton MD at [facility] Clip Axilla [employer] [id number] 04/05/2028 [id number] / / [id number] [employer] Eviva 13cm Identifier Biopsy Site Ogewe-Rnsfg-60 - [id number] Implanted:Qty: 1 on 12/07/2023 by Vladimir Moulton MD at [facility] [employer] [id number] 07/27/2024 COX SOUTHRK-RA VA-13 / / [id number] [employer] Port Infus Power Isp Mri 1lum Powerport Clearvue Titanium 8fr [id number] - [id number] Implanted:Qty: 1 on 12/24/2023 at [facility] Right: Subclavian [employer] 02/21/2025 [id number] / / [id number] [employer] Marker Tissue Needle Delivery Spiral Capped Seed Radiopaque Shelter Stainless Steel Low Nickel Sentimag 36guc7fg [id number] - [id number] Implanted:Qty: 1 on 07/18/2024 by Chey Wagner MD at [facility] Left: Axilla [employer] Inc [id number] 12/22/2025 [id number] / / [id number] [employer]ti [employer] Inc Graft Tissue Dermis Accelular Cortiva 0.8 1.2mm 13t98hn Sterile [id number] - [id number] Implanted:Qty: 1 on 07/25/2024 at [facility] Left: Breast [employer] 05/24/2027 [id number] / [id number] / [id number] [employer] Graft Tissue Dermis Accelular Cortiva 0.8 1.2mm 33q35kg Sterile [id number] - [id number] Implanted:Qty: 1 on 07/25/2024 at [facility] Right: Breast [employer] 05/24/2027 [id number] / [id number] / [id number] Explanted Type Area Public Transit Trolley Driver Device Identifier Shelf Expiration Date Model / Serial / Lot Round O Memorygel Boost Resterilizable Gel Sizer Explanted:Qty: 1 on 09/13/2024 by Arabella Go MD at [facility] Breast Bilateral: Breast Other 05/12/2029 [id number] S / [id number] Description:13.8CM/5.5CM [employer] Sizer Breast Mgel Smth Round Mod Hi Profile Boost 635cc Rpsb [id number] - [id number] - [id number] Explanted:Qty: 1 on 09/13/2024 by Arabella Go MD at [facility] Bilateral: Breast [employer] 05/04/2029 [id number] / [id number] Description:14.2CM/5.7CM [employer] Implant Mammary Natrelle Te Smooth 396t-Zo-83-T With Fourte 380w-Kq-97-T - [id number] Implanted:Qty: 1 on 07/25/2024 at [facility] Explanted:Qty: 1 on 09/13/2024 by Arabella Go MD at [facility] Right: Breast [employer] 06/20/2028 133S-MX-1 4-T / [id number] / [employer] Implant Mammary Natrelle Te Smooth 677d-Yg-00-T With Fourte 956r-Tb-17-T - [id number] Implanted:Qty: 1 on 07/25/2024 at [facility] Explanted:Qty: 1 on 09/13/2024 by Arabella Go MD at [facility] Left: Breast [employer] 06/06/2028 133S-MX-1 4-T / [id number] / Procedures Procedure Name Priority Date/Time Associated [...] breast in female, estrogen receptor positive (HCC) FPC (current) use of aromatase inhibitors RADIOLOGIC EXAMINATION OF SURGICAL SPECIMEN Schedule Routine, Read Routine (OP Routine) 07/25/2024 10:19 AM PRODUCT MARKETING MANAGER Malignant neoplasm of upper-inner quadrant of left breast in female, estrogen receptor positive (HCC) SURGICAL PATHOLOGY Routine 07/25/2024 9:44 AM PRODUCT MARKETING MANAGER Malignant neoplasm of left female breast, unspecified estrogen receptor status, unspecified site of breast (HCC) WY AN PROCEDURE PLACEHOLDER Routine 07/25/2024 9:37 AM PRODUCT MARKETING MANAGER WY AN ELECTIVE ENDOTRACHEAL AIRWAY Routine 07/25/2024 9:37 AM PRODUCT MARKETING MANAGER WY AN PROCEDURE PLACEHOLDER Routine 07/25/2024 9:37 AM PRODUCT MARKETING MANAGER WY AN ELECTIVE SUPRAGLOTTIC AIRWAY Routine 07/25/2024 9:37 AM PRODUCT MARKETING MANAGER INSERTION TISSUE EAP COUNSELOR - BREAST 07/25/2024 9:01 AM PRODUCT MARKETING MANAGER Malignant neoplasm of left female breast, unspecified estrogen receptor status, unspecified site of breast (HCC) Special Needs navigator, blue dye, sentimag, magseed instruments REMOVAL MAG SEED 07/25/2024 9:01 AM PRODUCT MARKETING MANAGER Malignant neoplasm of left female breast, unspecified estrogen receptor status, unspecified site of breast (HCC) Special Needs navigator, blue dye, sentimag, magseed instruments BIOPSY SENTINEL LYMPH NODE WITH LYMPHOSCINTIGRAPHY 07/25/2024 9:01 AM PRODUCT MARKETING MANAGER Malignant neoplasm of left female breast, unspecified estrogen receptor status, unspecified site of breast (HCC) Special Needs navigator, blue dye, sentimag, magseed instruments MASTECTOMY SIMPLE 07/25/2024 9:01 AM PRODUCT MARKETING MANAGER Malignant neoplasm of left female breast, unspecified estrogen receptor status, unspecified site of breast (HCC) Special Needs navigator, blue dye, sentimag, magseed instruments POCT HCG, URINE Routine 07/25/2024 8:18 AM PRODUCT MARKETING MANAGER POCT COTININE Routine 07/25/2024 8:17 AM PRODUCT MARKETING MANAGER NM LYMPHOSCINTIGRAPHY (BREAST) LEFT Schedule Routine, Read Routine (OP Routine) 07/25/2024 7:57 AM PRODUCT MARKETING MANAGER Malignant neoplasm of upper-inner quadrant of left breast in female, estrogen receptor positive (HCC) YANN POST CLIP PLACEMENT LEFT Schedule Routine, Read Routine (OP Routine) 07/18/2024 9:09 AM PRODUCT MARKETING MANAGER Malignant neoplasm of upper-inner quadrant of left breast in female, estrogen receptor positive (HCC) US GUIDED AXILLARY MAGSEED PLACEMENT LEFT Schedule Routine, Read Routine (OP Routine) 07/18/2024 9:01 AM PRODUCT MARKETING MANAGER Malignant neoplasm of upper-inner quadrant of left breast in female, estrogen receptor positive (HCC) US AXILLARY LEFT Schedule Routine, Read Routine (OP Routine) 06/28/2024 12:23 PM PRODUCT MARKETING MANAGER Malignant neoplasm of upper-inner quadrant of left breast in female, estrogen receptor positive (HCC) from Last 3 Months Results * Cotinine, urine (09/13/2024 9:08 AM CDT) Cotinine, ur Negative Negative Urine 09/13/2024 9:08 AM CDT 09/13/2024 9:12 AM CDT us Arabella Go MD LAB URINE ORDERABLES Final Result [facility] [place] [facility] Department [place] [address] * POCT hCG, urine (09/13/2024 8:30 AM [...] Bone mineral density was performed on a HoloSkycure Discovery Densitometer. Based on machine cross-calibration and [...] by the International Society of Clinical Densitometry. [id number] us Alexa Ervin MD IMG DXA PROCEDURES Final R esult * Radiologic Examination of Surgical Specimen (07/25/2024 10:19 AM PRODUCT MARKETING MANAGER) Anatomical Region Laterality Modality Breast N/A Computed Radiogr aphy 07/25/2024 11:3 8 AM PRODUCT MARKETING MANAGER Impressions 07/25/2024 11:38 AM PRODUCT MARKETING MANAGER FINDINGS/IMPRESSION: A LEFT axilla surgical specimen was received from the operating room and was imaged using digital radiography. The lesion of interest, and magnetic seed are included within the surgical specimen. The biopsy marker is not present within the specimen. These findings were communicated to the surgeon. Electronically signed by: Jeronimo Chakraborty D.O. Narrative 07/25/2024 11:38 AM PRODUCT MARKETING MANAGER EXAMINATION: RADIOLOGIC EXAMINATION OF LEFT SURGICAL SPECIMEN [...] Result * Surgical pathology (07/25/2024 9:44 AM PRODUCT MARKETING MANAGER) Tissue specimen (specimen) (Breast, simple mastectomy) 07/25/2024 9:44 AM PRODUCT MARKETING MANAGER Comment:right breast stitch in axillary tail Tissue specimen (specimen) (Breast, simple mastectomy) 07/25/2024 10:07 AM PRODUCT MARKETING MANAGER Comment:left breast stitch i n axillary tail Tissue specimen (specimen) (Lymph node, sentinel breast) 07/25/2024 10:09 AM PRODUCT MARKETING MANAGER Comment:left sentinel lymph node Narrative PATHOLOGY [facility] - 08/01/2024 11:29 AM CDT EPIC results best viewed via link to PDF [facility] [place] [address] Note to Patients: This report may contain [...] F : 1995 (Age: 28) Address: [address] [place] [id number] Hospital #: [id number] Taken:07/25/2024 Received:07/25/2024 Reported: 08/01/2024 Patient Type: [facility] EP SAME Client [facility] Service: Surgery Location: Physician(s): Davida Devlin M.D. [...] prior biopsy site, slice 6, bisected A3 Group Reservations Coordinator lower inner quadrant, slice 4 A4 Group Reservations Coordinator lower inner quadrant, slice 5 A5 Group Reservations Coordinator upper inner quadrant, slice 6 A6 Group Reservations Coordinator upper inner quadrant, slice 5 A7 Group Reservations Coordinator lower outer quadrant, slice 10 A8 Group Reservations Coordinator lower outer quadrant, slice 8 A9 Group Reservations Coordinator upper outer quadrant, slice 10 A10 Group Reservations Coordinator upper outer quadrant, slice 12 A11 Nipple, [...] (including nipple-sparing and skin-sparing) Lymph node sampling: [place] lymph node(s) Specimen laterality: Left Tumor site [...] mm Extranodal extension: Present, greater than 2mm [place] node evaluation: H&E, multiple levels Response to presurgical therapy: In the breast: Probable or definite response to presurgical therapy In the lymph nodes: Probable or definite response to presurgical therapy in metastatic carcinoma MD Kurtz Residual Cancer Runge: Primary tumor bed: 40 x 40 mm [...] Breast Biomarker Testing performed on Previous Case: [id number] Estrogen Receptor (ER): Positive Guilherme score 8/8 [...] interpretation for this case was performed at [facility], Department of Surgical Pathology, [address] [facility], [id number], [place] [address] CLIA # [id number] The performance characteristics of some immunohistochemical stains, fluorescence in-situ hybridization tests and immunophenotyping by flow cytometry cited in this report (if any) were determined by the Surgical Pathology and Flow Cytometry Departments at [facility] as part of an ongoing vice president quality improvement program and in compliance with federally mandated [...] Surgical Pathology and Flow Cytometry Departments of [facility]. It has not been cleared or approved by the U. S. Food and Drug Administration. IMAGES AND SCANNED DOCUMENTS, IF INCLUDED, ONLY VIEWABLE IN PDF VERSION OF REPORT us Davida Devlin MD LAB PATHOLOGY ORDERABLE S Final Result PATHOLOGY [facility] [phone] * WY AN ELECTIVE ENDOTRACHEAL AIRWAY, WY AN PROCEDURE PLACEHOLDER (07/25/2024 9:37 AM PRODUCT MARKETING MANAGER) Jennifer Denny CRNA - 07/25/2024 9:37 AM PRODUCT MARKETING MANAGER Jennifer Sierra CRNA 07/25/2024 9:38 AM Airway Patient location: OR Urgency: elective Indications for airway management: anesthesia Difficult airway: no Staff: Placed by: DEVELOPMENTAL WRITING INSTRUCTOR: Jennifer Sierra CRNA Emergent airway documentation: Risks [...] tongue, teeth same condition as baseline Result [facility] Carmelo Fan MD ANESTHESIA ORDERABLES Final Result * WY AN ELECTIVE SUPRAGLOTTIC AIRWAY, WY AN PROCEDURE PLACEHOLDER (07/25/2024 9:37 AM PRODUCT MARKETING MANAGER) Narrative Jennifer Sierra CRNA - 07/25/2024 9:37 AM PRODUCT MARKETING MANAGER Jennifer Sierra CRNA 07/25/2024 9:37 AM Airway Patient location: OR Urgency: elective Indications for airway management: anesthesia Difficult airway: no Staff: Placed by: DEVELOPMENTAL WRITING INSTRUCTOR: Jennifer Sierra CRNA Emergent airway documentation: Risks [...] tongue, teeth same condition as baseline. Result [facility] Carmelo Fan MD ANESTHESIA ORDERABLES Final Result * POCT hCG, urine (07/25/2024 8:18 AM PRODUCT MARKETING MANAGER) HCG, ur, POC Negative Negative Lot Number [id number] Urine 07/25/2024 8:18 AM PRODUCT MARKETING MANAGER Result [facility] Provider LAB POCT ORDERABLES - DEV ICE Final Result * POCT cotinine (07/25/2024 8:17 AM PRODUCT MARKETING MANAGER) Cotinine, POC Negative Lot Number [id number] QC Negative Control Acceptable QC Positive Control Acceptable Urine 07/25/2024 8:17 AM PRODUCT MARKETING MANAGER us Historical Provider POINT OF CARE TEST ORDERA BLES Final Result * NM Lymphoscintigraphy (Breast) Left (07/25/2024 7:57 AM PRODUCT MARKETING MANAGER) Anatomical Region Laterality Modality Breast N/A Nuclear Medicine 07/25/2024 8:58 AM PRODUCT MARKETING MANAGER Impressions 07/25/2024 10:01 AM PRODUCT MARKETING MANAGER No sentinel nodes identified at one hour post injection. Dictated by: Roxanne Worley M.D. The radiology attending physician has personally reviewed this study, and had reviewed and/or edited this written report and agrees with it. Electronically signed by: George Gibson MD, Ph.D Narrative 07/25/2024 10:01 AM PRODUCT MARKETING MANAGER EXAMINATION: BREAST LYMPHOSCINTIGRAPHY DATE OF STUDY: 07/25/2024 [...] George Gibson MD, Ph.D Davida Devlin MD [facility] PROCED[facility] Final Result * Yann Post Clip Placement Left (07/18/2024 9:09 AM PRODUCT MARKETING MANAGER) Anatomical Region Laterality Modality Breast Left Mammography 07/18/2024 11:3 5 AM PRODUCT MARKETING MANAGER Impressions 07/18/2024 11:35 AM PRODUCT MARKETING MANAGER Successful ultrasound-guided magnetic seed localization of the area of interest within the LEFT axilla. Dictated by: Chidi Hernandez M.D. The radiology attending physician has personally reviewed this study, and had reviewed and/or edited this written report and agrees with it. Electronically signed by: Chey Wagner M.D. 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 She is status post adriamycin/cytoxan, [...] procedure. Dr. Chidi Hernandez MD (diagnostic radiology administrator) also participated in this examination. Procedure Note Chey Wagner MD - 07/18/2024 EXAMINATION: LEFT AXILLA MAGSEED LOCALIZATION UTILIZING ULTRASOUND GUIDANCE; LEFT FULL FIELD DIGITAL MAMMOGRAM WITH DIGITAL BREAST TOMOSYNTHESIS HISTORY: 28 year old female with T2N1 left breast invasive ductal carcinoma with dionisio metastasis (ER,WY+, HER-2 -). She is status post adriamycin/cytoxan, [...] procedure. Dr. Chidi Hernandez MD (diagnostic radiology administrator) also participated in this examination. IMPRESSION: Successful [...] Axillary Magseed Placement Left (07/18/2024 9:01 AM PRODUCT MARKETING MANAGER) Anatomical Region Laterality Modality Left Ultrasound 07/18/2024 9:41 AM PRODUCT MARKETING MANAGER Impressions 07/18/2024 11:35 AM PRODUCT MARKETING MANAGER Successful ultrasound-guided magnetic seed localization of the area of interest within the LEFT axilla. Dictated by: Chidi Hernandez M.D. The radiology attending physician has personally reviewed this study, and had reviewed and/or edited this written report and agrees with it. Electronically signed by: Chey Wagner M.D. 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 She is status post adriamycin/cytoxan, [...] procedure. Dr. Chidi Hernandez MD (diagnostic radiology administrator) also participated in this examination. Procedure Note Chey Wagner MD - 07/18/2024 EXAMINATION: LEFT AXILLA MAGSEED LOCALIZATION UTILIZING ULTRASOUND GUIDANCE; LEFT FULL FIELD DIGITAL MAMMOGRAM WITH DIGITAL BREAST TOMOSYNTHESIS HISTORY: 28 year old female with T2N1 left breast invasive ductal carcinoma with dionisio metastasis (ER,WY+, HER-2 -). She is status post adriamycin/cytoxan, [...] procedure. Dr. Chidi Hernandez MD (diagnostic radiology administrator) also participated in this examination. IMPRESSION: Successful [...] US Axillary Breast Left (06/28/2024 12:23 PM PRODUCT MARKETING MANAGER) Anatomical Region Laterality Modality Upper Extremities Left Ultrasound 06/28/2024 12:3 5 PM PRODUCT MARKETING MANAGER Impressions 06/28/2024 12:35 PM PRODUCT MARKETING MANAGER Good treatment response with normal appearance to LEFT axillary lymph nodes. Biopsy marker remains visible OVERALL FINAL ASSESSMENT: BI-RADS Category 6: Known Biopsy-Proven Malignancy. RECOMMENDATION: Continued clinical and oncologic management of known malignancy. Electronically signed by: Nargis Doherty M.D. Narrative 06/28/2024 12:35 PM PRODUCT MARKETING MANAGER EXAMINATION: LEFT AXILLARY ULTRASOUND HISTORY: 28-year-old female status post neoadjuvant chemotherapy for LEFT breast cancer and metastatic disease to the LEFT axilla. She plans for treatment with LEFT mastectomy. COMPARISON: Prior ultrasounds on 03/23/2024 and 11/27/2023 TECHNIQUE: Directed ultrasound evaluation of the LEFT axilla was performed by a trained heavy forger helper and by . ULTRASOUND FINDINGS: Sonography within [...] LEFT axilla was performed by a trained heavy forger helper and by . ULTRASOUND FINDINGS: Sonography within [...] Final Result from Last 3 Months Insurance [facility] CHOICE PLUS [facility] H[facility]/PPO Address: [facility] [address] [place] [address] [facility] Address: [place] [address] [facility] H[facility]/PPO Address: [place] [address] Care Teams Jack Spinner Relationship Specialty Start Date End Date Torri Wiseman NP [address] [place] [address] [address] PCP - General Obstetrics and Gynecology 12/07/23 Alexa Ervin MD [facility] [address] [place] [address] Medical Oncologist/Jewelry Casting Model Maker Apprentice Medical Oncology 12/15/23
--- OUTSIDE RECORDS SUMMARY | 2024-09-16 22:41 | XMS_ITS | Clinical Summary ---
Author Organization [facility] Address [address] [facility] [place] [address] Care Team Providers Care Electric Lift Truck Driver Name Role Phone AngelauYra REAGAN-PRINCIPAL IOS DEVELOPER Primary Care Provider [phone] Source Comments [facility],non-owned Affiliates and Associated Physician Practices is amultiple site organization consisting of ambulatory clinics and hospital sitesin [place], [place], [place] and [place]. This disclosure is being madepursuant to the Care Everywhere program and may not contain all information available regarding this patient. Last updated 18.[facility] Allergies No known active allergies Medications * [...] on file Legal Sex Female 11:43 AM COORDINATOR MINING PRODUCTS Gender Identity Not on file Sexual Orientation [...] patient's age to complete this topic Insurance [facility] Member Subscriber Plan / Payer ( fective 2016-Present) Name:Cecy Santana Relation to Subscriber:Child Name:ARTI SANTANA Date of :1967 (Home) [facility] [place] [id number] Payer ID:[id number] (NAIC) Type:HMO Address: [place] [id number] [facility] Member Subscriber Plan / Payer ( fective 2020-Present) Name:Cecy Santana Member ID:Not on file Relation to Subscriber:Child Name:ARTI SANTANA Date of :1967 (Home) Address: [address] [place], [place] [address] [facility] [address] Payer ID:[id number] (NAIC) Type:HMO Address: [place] [id number] Care Teams Electric Lift Truck Driver Relationship Specialty Start Date End Date Vale Miller APRN-CNP [address] [place] [address] PCP - General 11/22/20
--- OUTSIDE RECORDS SUMMARY | 2024-09-16 22:41 | XMS_ITS | Encounter Summary ---
Author Organization [facility] Healthcare Address [address] [place] [address] Care Team Providers Care Marketing Manager Health Communications Name Role Phone Torri Wiseman NP Primary Care Provider [phone] Alexa Ervin MD Unavailable [phone] Reason for Visit * Reason Comments Injections Zoladex * Episode Based Medications (Routine) - Authorized Specialty Diagnoses / Procedures Referred By Haim silver Referred To Contact Diagnoses Malignant neoplasm of upper-inner quadrant of left breast in female, estrogen receptor positive (HCC) Alexa Ervin MD [address] [facility] [address] [place] [address] Phone: tel: fax: [facility] [facility] [facility] 7th [place] [address] Phone: tel: Referral ID Status Reason Start Date Expiration Date V isits Requested Visits Authorized [id number] Authorized 12/21/2023 12/20/2024 40 40 Encounter Details Date Type Department Care Team (Late st Contact Info) Description 09/15/2024 12:00 PM CDT Infusion [facility] - Infusion [address] [facility] [address] [place] [address] Malignant neoplasm of upper-inner quadrant of left [...] on file Legal Sex Female 8:57 AM ROLLER SKATE REPAIRER Gender Identity Female 07/25/2021 2:27 PM ROLLER SKATE REPAIRER Sexual Orientation Straight 07/25/2021 2: 27 PM ROLLER SKATE REPAIRER documented as of this encounter Last Filed [...] 09/15/2024 12:00 PM CDT Oncology Nursing Note [facility] - INFUSION Cecy Joyce is a 29 [...] 3.6 mg 3.6 mg, subcutaneous, Once, On [facility] 09/15/24 at 1345, For 1 dose, [...] 5 mg 5 mg, subcutaneous, Once, On [facility] 09/15/24 at 1345, For 1 dose, [...] 08/24 documented in this encounter Care Teams Marketing Manager Health Communications Relationship Specialty Start Date End Date Torri Wiseman SECURITY CONTROL CENTER OPERATOR [address] [place] [address] [address] WEINBERG [address] [place] [address] PCP - General Obstetrics and Gynecology 12/07/23 Alexa Ervin MD [address] [place] [address] Medical Oncologist/Gun Number Medical Oncology 12/15/23 documented as of this encounter
[2024-09-16 22:48] LABS: Lactic Acid Reflex 1.1 mmol/L (0.7-2.0)
[2024-09-16 22:53] LABS: Prothrombin Time 14.2 Seconds (11.1-14.7)
[2024-09-16 22:54] LABS: Partial Thromboplastin Time 27.5 Seconds (22.3-36.8)
[2024-09-16 22:59] LABS: NT Pro B Type Natriuretic Pept < 20 pg/mL (19.9-100); Troponin I < 0.012 ng/mL (0.000-0.034)
[2024-09-16 23:02] VITALS: BP 112/64; PULSE 99; RESP 18; O2SAT 96
[2024-09-16 23:13] LABS: Influenza A QL RT-PCR Negative (Negative); Influenza B QL RT-PCR Negative (Negative); RSV RNA, RT-PCR Negative (Negative); SARS-CoV-2 RNA PCR Negative (Negative)
[2024-09-16 23:20] LABS: Alanine Aminotransferase 32 U/L (6-35); Albumin Level 4.4 g/dL (3.5-5.1); Alkaline Phosphatase 96 U/L (38-126); Anion Gap 15 mmol/L (4-12); Aspartate Amino Transferase 32 U/L (14-36); Bilirubin,Total 0.5 mg/dL (0.2-1.3); Blood Urea Nitrogen 10 mg/dL (7-17); Calcium 9.2 mg/dL (8.4-10.2); Carbon Dioxide 19 mmol/L (22-30); Chloride 102 mmol/L (98-107); Estimated CRCL calculation 110 ml/min; Estimated Glomerular Filt Rate > 60; Glucose 109 mg/dL (65-110); Lipase 42 U/L (23-300); Phosphorus 4.2 mg/dL (2.5-4.5); Potassium 3.8 mmol/L (3.4-5.0); Sodium 136 mmol/L (137-145)
--- NOTE | 2024-09-16 23:43 | ED_ITS ---
HPI - General Adult General Chief complaint: Unspecified Stated complaint: cancer pt- diarrhea, tachy, Time Seen by Provider: 09/16/24 22:08 History of Present Illness HPI narrative: This is a 29-year-old female history of breast cancer presenting for weakness. Patient is postoperative day 3 from a breast fashion marketer. Patient is complaining of fevers as high as 100.7 at home, dizziness, diarrhea and dysuria. She also has some suprapubic abdominal pain. She denies chest pain/amina. She denies drainage from any of incision sites. She denies chest pain, difficulty breathing, abdominal pain, nausea of vomiting. Related Data Home Medications ?Medication ?Instructions ?Recorded ?Confirmed ?Last Taken ?Type dexamethasone 4 mg tablet 4 mg PO DAILY 01/08/24 01/08/24 Unknown History letrozole 2.5 mg tablet 2.5 mg PO DAILY 01/08/24 01/08/24 Unknown History ondansetron HCl 8 mg tablet 8 mg PO PRN PRN Nausea 01/08/24 01/08/24 Unknown History prochlorperazine maleate 10 mg 10 mg PO DAILY 01/08/24 01/08/24 Unknown History tablet Allergies Allergy/AdvReac Type Severity Reaction Status Date / Time No Known Allergies Allergy Verified 01/08/24 01:07 [facility] Past Medical History Medical History Encounter for removal of intrauterine contraceptive device Encounter for insertion of mirena IUD insertion 10/2018 Encounter for Nexplanon removal Nexplanon insertion Surgical History Surgical History H/O wisdom tooth extraction Family History Family History Other Breast cancer Diabetes mellitus Social History Social History Smoking status: Never smoker Alcohol intake: current Substance use: current Substance use type: marijuana Lack of Transportation: No Lack of Food: Never True Current Housing: I Have Housing Concerned About Future Housing: No Difficulty Paying Gas/Electric Bills: No Difficulty Paying for Meds: No Currently Unemployed: No Education: Bachelor's Degree Difficulty w/ Childcare or Family Care: No Living arrangements: with family Occupation/Education: occupation Gender identity (if verbalized by the patient): Female Sexual Orientation (if Verbalized by the Patient): Straight or Heterosexual Exam 2 Narrative: APPEARANCE: No apparent distress. Head: atraumatic. EYES: EOMI, NOSE: Atraumatic NECK: Trachea midline RESPIRATORY: No increased rate of breathing clear to auscultation CARDIOVASCULAR: Tachycardic, no peripheral edema ABDOMINAL: Non-distended soft nontender no guarding rebound MUSCULOSKELETAl: No obvious deformities NEURO: Alert. Moving 4/4 extremities SKIN:: Incision sites are clean dry intact without evidence of infection PSYCHIATRIC: Normal affect Course Vital Signs Vital signs: Vital Signs Temperature 98.8 F 09/16/24 22:08 Pulse Rate 112 H 09/16/24 22:08 Respiratory Rate 15 09/16/24 22:08 Blood Pressure 98/70 L 09/16/24 22:08 Pulse Oximetry 100 09/16/24 22:08 Oxygen Delivery Room Air 09/16/24 22:08 Temperature 98.8 F 09/16/24 22:08 Pulse Rate 77 09/17/24 03:33 Respiratory Rate 16 09/17/24 03:33 Blood Pressure 121/84 09/17/24 03:33 Pulse Oximetry 96 09/17/24 03:33 Oxygen Delivery Room Air 09/16/24 22:08 Medical Decision Making MDM Narrative Medical decision making narrative: -Course: 29-year-old female presenting pod 3 breast fashion marketer surgery with dizziness, weakness, fevers, and diarrhea. Sepsis workup obtained. Patient given fluid resuscitation. White count normal. Kidney function at baseline. Lactic normal. Infectious workup including urine chest x-ray swabs negative. CTA chest abdomen pelvis showed some expected postsurgical changes of her breast implants but no other acute findings. On re-evaluation patient is feeling significantly better. Her heart rate has normalized. She discussed admission versus discharge and the patient is comfortable being discharged home. She will call her surgeon in the morning to let them know she was in the hospital. Given return precautions. -DDX includes but is not limited to: Diarrhea, viral syndrome, pneumonia, UTI, surgical infection Vital Signs Vital Signs: Vital Signs Temperature 98.8 F 09/16/24 22:08 Pulse Rate 112 H 09/16/24 22:08 Respiratory Rate 15 09/16/24 22:08 Blood Pressure 98/70 L 09/16/24 22:08 Pulse Oximetry 100 09/16/24 22:08 Oxygen Delivery Room Air 09/16/24 22:08 Temperature 98.8 F 09/16/24 22:08 Pulse Rate 77 09/17/24 03:33 Respiratory Rate 16 09/17/24 03:33 Blood Pressure 121/84 09/17/24 03:33 Pulse Oximetry 96 09/17/24 03:33 Oxygen Delivery Room Air 09/16/24 22:08 Lab Data 09/16/24 22:26 09/16/24 22:26 Labs: Lab Results 09/16/24 09/17/24 09/17/24 Range/Units 22: 00:00 00:01 WBC 7.2 (4.5-10.0) K/mm3 RBC 4.97 (4.2-5.4) M/mm3 Hgb 14.4 (12.0-15.0) g/dL Hct 41.9 (37.0-47.0) % MCV 84.3 (80-100) fl MCH 29.0 (26-34) pg MCHC 34.4 (32-36) g/dl RDW 11.6 (11.5-14.5) % Plt Count 185 (150-375) k/mm3 MPV 9.7 (7.4-10.4) fl Immature Gran % (Auto) 0.3 (0-0.5) % Neut % (Auto) 82.5 H (45.5-73.1) % Lymph % (Auto) 5.9 L (18.3-44.2) % Reagan % (Auto) 10.9 H (2.6-8.5) % Eos % (Auto) 0.3 (0-4.4) % Baso % (Auto) 0.1 L (0.2-1.2) % Lymph # (Auto) 0.43 L (0.9-3.2) K/mm3 Reagan # (Auto) 0.8 H (0.1-0.6) K/mm3 Eos # (Auto) 0.0 (0-0.3) K/mm3 Baso # (Auto) 0.0 (0.0-0.1) K/mm3 Abs Immat Gran (auto) 0.02 (0.00-0.031) K/mm3 Absolute Neuts (auto) 6.0 (1.3-6.7) K/mm3 Absolute Nucleated RBC 0.000 (0.0-0.012) K/mm3 Nucleated RBC % 0.0 (0.0-0.2) % PT 14.2 (11.1-14.7) Seconds INR 1.0 APTT 27.5 (22.3-36.8) Seconds Sodium 136 L (137-145) mmol/L Potassium 3.8 (3.4-5.0) mmol/L Chloride 102 (98-107) mmol/L Carbon Dioxide 19 L (22-30) mmol/L Anion Gap 15 H (4-12) mmol/L BUN 10 (7-17) mg/dL Creatinine 0.79 (0.7-1.0) mg/dL Estim Creat Clear Calc 110 ml/min Estimated GFR > 60 (59 - ) Glucose 109 (65-110) mg/dL Lactic Acid 1.1 (0.7-2.0) mmol/L Calcium 9.2 (8.4-10.2) mg/dL Phosphorus 4.2 (2.5-4.5) mg/dL Total Bilirubin 0.5 (0.2-1.3) mg/dL AST 32 (14-36) U/L ALT 32 (6-35) U/L Alkaline Phosphatase 96 (38-126) U/L Troponin I < 0.012 (0.000-0.034) ng/mL NT-Pro-B Natriuret Pep < 20 (19.9-100) pg/mL Total Protein 7.0 (6.3-8.2) g/dL Albumin 4.4 (3.5-5.1) g/dL Lipase 42 (23-300) U/L Urine Color Yellow (Yellow) Urine Appearance Clear (Clear) Urine pH 6.0 (5.0-9.0) Ur Specific [place] > 1.045 H (1.001-1.035) Urine Protein Negative (Negative) mg/dL Urine Glucose (UA) Negative (Negative) mg/dL Urine Ketones Negative (Negative) mg/dL Ur Blood (Man) Negative (Negative) Urine Nitrate Negative (Negative) Urine Bilirubin Negative (Negative) Urine Urobilinogen 0.2 (<2.0) mg/dL Leukocyte Esterase Rfl Negative (Negative) NELLY/UL POC Urine HCG, Qual Negative (Negative) Influenza A (RT-PCR) Negative (Negative) Influenza B (RT-PCR) Negative (Negative) RSV (RT-PCR) Negative (Negative) SARS-CoV-2 RNA (RT-PCR) Negative (Negative) 09/17/24 Range/Units 01:55 WBC (4.5-10.0) K/mm3 RBC (4.2-5.4) M/mm3 Hgb (12.0-15.0) g/dL Hct (37.0-47.0) % MCV (80-100) fl MCH (26-34) pg MCHC (32-36) g/dl RDW (11.5-14.5) % Plt Count (150-375) k/mm3 MPV (7.4-10.4) fl Immature Gran % (Auto) (0-0.5) % Neut % (Auto) (45.5-73.1) % Lymph % (Auto) (18.3-44.2) % Reagan % (Auto) (2.6-8.5) % Eos % (Auto) (0-4.4) % Baso % (Auto) (0.2-1.2) % Lymph # (Auto) (0.9-3.2) K/mm3 Reagan # (Auto) (0.1-0.6) K/mm3 Eos # (Auto) (0-0.3) K/mm3 Baso # (Auto) (0.0-0.1) K/mm3 Abs Immat Gran (auto) (0.00-0.031) K/mm3 Absolute Neuts (auto) (1.3-6.7) K/mm3 Absolute Nucleated RBC (0.0-0.012) K/mm3 Nucleated RBC % (0.0-0.2) % PT (11.1-14.7) Seconds INR APTT (22.3-36.8) Seconds Sodium (137-145) mmol/L Potassium (3.4-5.0) mmol/L Chloride (98-107) mmol/L Carbon Dioxide (22-30) mmol/L Anion Gap (4-12) mmol/L BUN (7-17) mg/dL Creatinine (0.7-1.0) mg/dL Estim Creat Clear Calc ml/min Estimated GFR (59 - ) Glucose (65-110) mg/dL Lactic Acid (0.7-2.0) mmol/L Calcium (8.4-10.2) mg/dL Phosphorus (2.5-4.5) mg/dL Total Bilirubin (0.2-1.3) mg/dL AST (14-36) U/L ALT (6-35) U/L Alkaline Phosphatase (38-126) U/L Troponin I < 0.012 (0.000-0.034) ng/mL NT-Pro-B Natriuret Pep (19.9-100) pg/mL Total Protein (6.3-8.2) g/dL Albumin (3.5-5.1) g/dL Lipase (23-300) U/L Urine Color (Yellow) Urine Appearance (Clear) Urine pH (5.0-9.0) Ur Specific [place] (1.001-1.035) Urine Protein (Negative) mg/dL Urine Glucose (UA) (Negative) mg/dL Urine Ketones (Negative) mg/dL Ur Blood (Man) (Negative) Urine Nitrate (Negative) Urine Bilirubin (Negative) Urine Urobilinogen (<2.0) mg/dL Leukocyte Esterase Rfl (Negative) NELLY/UL POC Urine HCG, Qual (Negative) Influenza A (RT-PCR) (Negative) Influenza B (RT-PCR) (Negative) RSV (RT-PCR) (Negative) SARS-CoV-2 RNA (RT-PCR) (Negative) Discharge Plan Discharge Clinical Impression: Acute dehydration Patient Disposition: Home Condition: Stable Instructions: Antibiotic Form, Dehydration (DC) Additional Instructions: You seen emergency department for dehydration due to diarrhea. Your workup here was reassuring. Please call your surgeon in the morning inform them about your visit to the emergency department. Return to ED if you develop fevers any new questions Patient Language: Vietnamese Prescriptions: No Action ondansetron HCl 8 mg tablet 8 mg PO PRN PRN (Reason: Nausea) prochlorperazine maleate 10 mg tablet 10 mg PO DAILY dexamethasone 4 mg tablet 4 mg PO DAILY letrozole 2.5 mg tablet 2.5 mg PO DAILY acetaminophen 500 mg capsule 1,000 mg PO Q6H PRN (Reason: pain) Qty: 20 0RF ibuprofen 600 mg tablet 600 mg PO TID PRN (Reason: pain) Qty: 20 0RF ondansetron 4 mg tablet,disintegrating 4 mg PO Q8H PRN (Reason: nausea and vomiting) Qty: 7 0RF Follow-up/Referrals: Noemi,Valeria, BUSINESS COORDINATOR [Primary Care Provider] -
[2024-09-17 00:01] VITALS: BP 107/63; PULSE 91; PULSE 92; RESP 16; O2SAT 99
[2024-09-17] MEDS: HYDROmorphone HCL INJ (*CRX) 2 MG/ML VIAL 0.5 MG IV PUSH (00:08)
[2024-09-17 00:14] LABS: Add Urine Microscopic? NO; Appearance Urine Clear (Clear); Bilirubin Urine Negative (Negative); Blood Urine Negative (Negative); Color Urine Yellow (Yellow); Glucose Urine UA Negative (Negative); Ketones Urine Negative (Negative); Leukocyte Esterase Ur Negative LEU/UL (Negative); Nitrate Urine Negative (Negative); Protein Urine Negative (Negative); Specific Grav Ur > 1.045 (1.001-1.035); Urobilinogen Urine 0.2 mg/dL (<2.0)
[2024-09-17 01:32] LABS: BEDSIDEPREGUCG Negative (Negative)
--- NOTE | 2024-09-17 01:51 | ECG_ITS ---
Test Date: 2024-09-17 01:56:47 Measurements Intervals Iva Rate: 74 P: 51 MS: 159 QRS: 19 QRSD: 83 T: 29 QT: 398 QTc: 443 Interpretive Statements SINUS RHYTHM BORDERLINE ST-T WAVE ABNORMALITY- ANTERIOR LEADS BORDERLINE ECG Compared to ECG 09/16/2024 23:10:16 No significant changes Electronically Signed On 09-17-2024 07:03:41 CDT by Sonu Crawford D.O.
[2024-09-17] MEDS: SODIUM CHLORIDE 0.9% IV 2,000 ML 999 ML IV CONT (01:54)
[2024-09-17 01:56] VITALS: BP 112/76; PULSE 79; RESP 14; O2SAT 99
[2024-09-17 02:26] LABS: Troponin I < 0.012 ng/mL (0.000-0.034)
[2024-09-17 03:33] VITALS: BP 121/84; PULSE 77; RESP 16; O2SAT 96
[2024-09-17 04:42] VITALS: BP 117/77; PULSE 83; RESP 17; TEMP 36.8; O2SAT 98
[2024-09-17 04:46] VITALS: BP 117/77; PULSE 83; RESP 17; TEMP 36.8; O2SAT 98
== END 2024-09-17 04:50 | disposition home or self-care (01) ==
PROVIDERS: Emergency Provider Emergency Medicine; PCP Registered Nurse
DX: E86.0 Dehydration (principal); C50.919 Malignant neoplasm of unspecified site of unspecified female breast; Z20.822 Contact with and (suspected) exposure to COVID-19
CPT/HCPCS: 36415; 71275; 74174; 80053; 81003; 81025; 83605; 83690; 83880; 84100; 84484; 85025; 85610; 85730; 87040; 87637; 93005; 96361; 96374; 99284; J1171; J7030; Q9967